=== PATIENT | male | born 1955 | race African-American/Black ===

== ENCOUNTER 2018-09-09 01:30 | Outpatient (RCR) | payer MEDICARE, SELFPAY ==
[2018-09-02] MEDS: IRON SUCROSE COMPLEX 200 MG in Normal Saline 100 ML 110 MG IVPB (09:55)
[2018-09-02 10:09] LABS: Absolute Basophil Count 0.04 k/cumm (0.0-0.2); Absolute Eosinophil Count 0.35 k/cumm (0.0-0.7); Absolute Lymphocyte Count 2.76 k/cumm (1.2-3.4); Absolute Monocyte Count 0.72 k/cumm (0.11-0.7); Absolute Neutrophil Count 3.12 k/cumm (1.2-6.7); Basophils % 0.6; HCT 35.7 % (40.0-50.0); HGB 11.5 g/dL (13.5-17.5); Lymphocytes % 39.5; Mean Corp. HGB Concentration 32.2 g/dL (32.0-36.0); Mean Corpuscular Hemoglobin 22.9 pg (27.0-33.0); Mean Platelet Volume 9.6 fL (8.0-11.0); Monocytes % 10.3; Neutrophils % 44.6; Platelet Count 269 x1000/uL (130-400); RBC 5.03 m/cumm (4.50-6.00); White Blood Cell Count 6.99 k/cumm (4.4-10.8)
[2018-09-02] MEDS: Normal Saline Flush 10 ML SYR IVP (10:15)
[2018-09-02 10:16] LABS: Anion Gap 7.5 mmol/L (3-11); BUN 12 mg/dL (7-18); CO2 26.5 mmol/L (21.0-32.0); CREATININE 0.89 mg/dL (0.70-1.30); Calcium 8.4 mg/dL (8.5-10.1); Chloride 104 mmol/L (98-107); Glucose 93 mg/dL (70-100); Potassium 3.9 mmol/L (3.5-5.1); Sodium 138 mmol/L (136-145)
[2018-09-02 10:30] LABS: Anisocytosis 2+; Diff Comment RBC Morph Reviewed; Hypochromasia 3+; Microcytosis 3+
[2018-09-02 10:31] LABS: Poikilocytes 2+; Polychromasia Present
[2018-09-02 10:32] LABS: Iron 43 ug/dL (50-175); Total Iron Binding Capacity 353 ug/dL (250-450); Transferrin Sat 12 % (20-55)
== END 2018-10-01 23:59 | disposition home or self-care (01) ==
LOC: INF 01:30
PROVIDERS: Student in an Organized Health Care Education/Training Program; Visit Provider Family Medicine
DX: D50.9 Iron deficiency anemia, unspecified (principal)
CPT/HCPCS: 80048; 86850; 86900; 86901; 96365; 83540; 83550; 85025; J1756

== ENCOUNTER 2018-09-13 19:20 | Emergency (ER) | payer MEDICARE, SELFPAY ==
[2018-09-13] VITALS (19 sets, daily range): BP systolic 148–187; BP diastolic 78–98; PULSE 70–89; RESP 15–25; TEMP 37.4; O2SAT 95–100
--- NOTE | 2018-09-13 19:25 | DI.RAD_ITS ---
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 No evidence of acute fracture or dislocation. LEFT SHOULDER: Five views were obtained. There is a suture anchor in the humeral head. A lucent area with sclerotic rim is noted in the proximal humeral metaphysis consistent with benign disease. There are moderate degenerative changes of the glenohumeral and acromioclavicular joints. There is no evidence of acute fracture or dislocation. LEFT ELBOW: Four views were obtained. No true lateral view was obtained and the fat pads are difficult to evaluate. There is a suspicion of a nondisplaced fracture of the medial aspect of the proximal ulna, please correlate clinically and additional films or CT could be obtained if clinically indicated to confirm a fracture at this site and delineate the fracture anatomy.
--- NOTE | 2018-09-13 19:25 | DI.CT_ITS ---
SYMPTOMS/DIAGNOSIS: PAIN S/P FALL CERVICAL SPINE CT: CT examination of the cervical spine was performed utilizing multislice acquisition and multiplanar reconstruction. There are severe degenerative changes of the cervical spine with marked facet hypertrophy and endplate hypertrophy at multiple levels. There is no evidence of acute fracture or dislocation. Images obtained through the lung apices are unremarkable. Tracheolaryngeal structures appear intact. No cervical mass or adenopathy seen. CONCLUSION: Severe degenerative changes of the cervical spine; no evidence of acute fracture. CRANIAL CT: Noncontrast cranial CT was performed. There is mild generalized cerebral atrophy. There is no evidence of acute intracranial hemorrhage, mass effect or midline shift. Presumed left frontal scalp hematoma is noted. No underlying calvarial fracture identified. Visualized paranasal sinuses are clear. The orbital and temporal bone structures appear intact as visualized, although motion obscures anatomic detail. CONCLUSION: No evidence of acute intracranial injury.
--- NOTE | 2018-09-13 19:30 | W.ED.GENAD ---
Discharge Plan Disposition Patient Disposition: HOME Condition: Stable Discharge Details Chief Complaint: Trauma Clinical Impression: Blunt head trauma, Cervical strain, Contusion of right shoulder, Contusion of left shoulder, Closed fracture of left elbow Reason For Visit: [facility] ED Provider: Modesto Olguin [place] Meds and New Rx's Prescriptions: New oxycodone 5 mg tablet 5 mg PO Q4H PRN (Reason: pain) Qty: 10 RF: 0 Continue lisinopril 20 mg Tablet 20 mg PO DAILY RF: 0 calcium carbonate [Calcium 500] 500 mg calcium (1,250 mg) Tablet 500 mg PO DAILY RF: 0 methadone 5 mg Tablet 50 mg PO DAILY RF: 0 atorvastatin 40 mg Tablet 40 mg PO DAILY RF: 0 sildenafil [Viagra] 50 mg Tablet 25 mg PO DAILY PRNRF: 0 famotidine 40 mg Tablet 40 mg PO BID RF: 0 methocarbamol 750 mg Tablet 750 mg PO QID PRNRF: 0 ferrous sulfate 325 mg (65 mg iron) Tablet 325 mg PO DAILY RF: 0 gabapentin 300 mg Capsule 300 mg PO BID RF: 0 fluticasone [Flovent HFA] 220 mcg/actuation Hfa Aerosol Inhaler 1 puff INHALATION BID RF: 0 albuterol sulfate [Ventolin HFA] 90 mcg/actuation Hfa Aerosol Inhaler 2 dose Inhalation Q4H PRN PRNRF: 0 lisinopril 40 mg Tablet 40 mg PO DAILY RF: 0 fluticasone [Flonase Allergy Relief] 50 mcg/actuation [place],Suspension 1 spray Intranasal DAILY RF: 0 finasteride 5 mg Tablet 5 mg PO DAILY RF: 0 bupropion HCl 300 mg Tablet Extended Release 24 Hr 300 mg PO DAILY RF: 0 ipratropium bromide 17 mcg/actuation Hfa Aerosol Inhaler 2 dose Inhalation Q6H PRN PRNRF: 0 miconazole-skin [Miconazole-3 prefil,cream,wipe] 4 % (200 mg)- 2 % (9 gram) Kit 1 dose Topical DAILY RF: 0 Discharge Instructions Instructions: Elbow Fracture in Adults (ED) Additional Instructions: take 1000mg tylenol and 600mg ibuprofen every 6 hours for pain as needed. If you need additional pain relief take 1 oxycodone, do not drive or drink alcohol if you take this follow up with your primary care provider regarding your lung nodules if you have new symptoms such as chest pain or abdominal pain or weakness/numbness return to the emergency department Discharge Data Discharge Physician: Modesto Olguin Medical Decision Making 63 yo male with hx of HTN comes in with cc of left shoulder pain. He states he missed a step and fell down a flight of stairs. He denies any preceding symptoms such as weakness, dz/lightheadedness, chest pain, sob, abd pain and states he purely missed a step. He did not lose consciousness. He has left shoulder pain and also right shoulder pain and left elbow pain. Given no chest pain or sob or abdominal pain and full rom of the LE without pain do not feel imaging of these entiteis indicated. Given distracting injuries will image the c spine as well as bilateral shoulders and left elbow pt remains stable. His xrays of his left elbow and shoulders show sclerotis lesions and pulmonary nodules, no fracture of the shoulders, but does have small fracture of the left ulna, placed in a posterior arm splint and sling and he is going to f/u with his ortho at [facility] and advised he f/u with his pcp for the bone lesions and pulmonary nodules. His CT head showed no bleeding or fractures, does have opacificiation of inferior left masoid air cells which radiology states can be seen in trauma or mastoiditis, pt has no ear ache or pain in this area or swelling/redness/warmth to suggest mastoiditis at this time. His CT c spine showed abnormalities in c6 vertebral body which can't exclude fx and other findings of possible traumatic injury. I recommended transfer to [facility] [place] for trauma consult but the pt declined this as he has no pain on exam even on rom. He has no midline pain either. Despite this I advised this was against my advice and he still would like to go home. He has capacity to make his own decisions and understands risks of missing c spine fx including disability and and is willing to take these risks. He will return if he has worsening symptoms or if he changes his mind Differential Diagnosis tbi, fx, dislocation contusion HPI General Mode of arrival: EMS. Date/Time Provider Initiated Documentation: 09/13/18 19:25. Limitations to Documentation: no limitations. Information obtained by: patient. History of Present Illness 63 year old M presents to the emergency department with the chief complaint of left shoulder pain, described as moderate, with intensity rated at 5. Quality is described as aching, and is localized to the upper extremity. Patient reports no radiation. Patient started experiencing this hour(s) (1) and it has been constant. Rest improves symptom(s), Movement worsens symptoms . Patient notes other (left elbow pain, right shoulder pain). Patient did receive the following treatments prior to arrival, none Related Data Home Medications Medication Instructions Recorded Confirmed albuterol sulfate [Ventolin HFA] 2 dose INHALATION Q4H PRN PRN 09/13/18 09/13/18 atorvastatin 40 mg PO DAILY 09/13/18 09/13/18 bupropion HCl 300 mg PO DAILY 09/13/18 09/13/18 calcium carbonate [Calcium 500] 500 mg PO DAILY 09/13/18 09/13/18 famotidine 40 mg PO BID 09/13/18 09/13/18 ferrous sulfate 325 mg PO DAILY 09/13/18 09/13/18 finasteride 5 mg PO DAILY 09/13/18 09/13/18 fluticasone [Flonase Allergy 1 spray INTRANASAL DAILY 09/13/18 09/13/18 Relief] fluticasone [Flovent HFA] 1 puff INHALATION BID 09/13/18 09/13/18 gabapentin 300 mg PO BID 09/13/18 09/13/18 ipratropium bromide 2 dose INHALATION Q6H PRN PRN 09/13/18 09/13/18 lisinopril 20 mg PO DAILY 09/13/18 09/13/18 lisinopril 40 mg PO DAILY 09/13/18 09/13/18 methadone 50 mg PO DAILY 09/13/18 09/13/18 methocarbamol 750 mg PO QID PRN 09/13/18 09/13/18 miconazole-skin 1 dose TOPICAL DAILY 09/13/18 09/13/18 [Miconazole-3 prefil,cream,wipe] oxycodone 5 mg PO Q4H PRN #10 tab 09/13/18 sildenafil [Viagra] 25 mg PO DAILY PRN 09/13/18 09/13/18 Previous Rx's Medication Instructions Recorded oxycodone 5 mg PO Q4H PRN #10 tab 09/13/18 Allergies Allergy/AdvReac Type Severity Reaction Status Date / Time Sulfa (Sulfonamide Allergy Unverified 09/13/18 19:23 Antibiotics) General Stated Complaint: Trauma KENYETTA: 2 Review of Systems Review of Systems All systems reviewed & are unremarkable except as noted in HPI and below Constitutional Denies chills, Denies fever(s) and Denies weakness Eyes Denies loss of vision ENT Denies change in voice Cardiovascular Denies chest pain and Denies dyspnea Respiratory Denies dyspnea Gastrointestinal Denies abdominal pain, Denies nausea and Denies vomiting Genitourinary Denies dysuria Integumentary/Breasts Denies rash Neurologic Denies loss of vision and Denies weakness Allergic/Immunologic Reports urticaria [facility], [facility] Social History Smoking/Tobacco Use Status: Current every day Exam Const General: no acute distress Orientation: alert HENMT Head: normal to inspection Ears: external ears normal General nose exam: external nose normal Mouth: moist mucous membranes Eyes General: appearance normal, both eyes and all related structures Neck Neck: normal visual inspection and other (no midline nenderness) Resp Effort & Inspection: normal respiratory effort and able to speak in complete sentences Cardio Rate: regular rate Skin General skin exam: no rashes or lesions noted Neuro General: alert and oriented x3 Extrem General: normal to inspection, normal capillary refill and other (pain to palpation to the left lateral shoulder, right lateral shoulder with limited rom of both and left olecranon pain with limited rom, no hand or elbow pain and full rom of both lower extremities. ) Psych Mental Status: mental status grossly normal Course Vital Signs Temperature 37.4 C 09/13/18 19:23 Pulse 89 09/13/18 19:23 Respiratory Rate 16 09/13/18 19:23 Blood Pressure 187/98 H 09/13/18 19:23 Pulse Oximetry 97 09/13/18 19:23 Temperature 37.4 C 09/13/18 19:23 Temperature Source Temporal Artery Scan 09/13/18 19:23 Pulse 89 09/13/18 19:23 Respiratory Rate 16 09/13/18 19:23 Respiratory Effort 09/13/18 19:23 Blood Pressure 187/98 H 09/13/18 19:23 Pulse Oximetry 97 09/13/18 19:23 Oxygen Delivery Method Room Air 09/13/18 19:23 Oxygen Flow Rate 0 09/13/18 19:23 Pain Level 10 09/13/18 19:23 Comment 09/13/18 19:23
[2018-09-13] MEDS: Ibuprofen 600 MG TAB PO (19:33)
[2018-09-13] MEDS: Acetaminophen 500 MG TAB 1000 MG PO (19:34)
--- NOTE | 2018-09-13 19:35 | ED.GENADUL_ITS ---
Discharge Plan Disposition Patient Disposition: HOME Condition: Stable Discharge Details Chief Complaint: Trauma Clinical Impression: Blunt head trauma, Cervical strain, Contusion of right shoulder, Contusion of left shoulder, Closed fracture of left elbow Reason For Visit: [facility] ED Provider: Modesto Olguin [place] Meds and New Rx's Prescriptions: New oxycodone 5 mg tablet 5 mg PO Q4H PRN (Reason: pain) Qty: 10 RF: 0 Continue lisinopril 20 mg Tablet 20 mg PO DAILY RF: 0 calcium carbonate [Calcium 500] 500 mg calcium (1,250 mg) Tablet 500 mg PO DAILY RF: 0 methadone 5 mg Tablet 50 mg PO DAILY RF: 0 atorvastatin 40 mg Tablet 40 mg PO DAILY RF: 0 sildenafil [Viagra] 50 mg Tablet 25 mg PO DAILY PRNRF: 0 famotidine 40 mg Tablet 40 mg PO BID RF: 0 methocarbamol 750 mg Tablet 750 mg PO QID PRNRF: 0 ferrous sulfate 325 mg (65 mg iron) Tablet 325 mg PO DAILY RF: 0 gabapentin 300 mg Capsule 300 mg PO BID RF: 0 fluticasone [Flovent HFA] 220 mcg/actuation Hfa Aerosol Inhaler 1 puff INHALATION BID RF: 0 albuterol sulfate [Ventolin HFA] 90 mcg/actuation Hfa Aerosol Inhaler 2 dose Inhalation Q4H PRN PRNRF: 0 lisinopril 40 mg Tablet 40 mg PO DAILY RF: 0 fluticasone [Flonase Allergy Relief] 50 mcg/actuation [place],Suspension 1 spray Intranasal DAILY RF: 0 finasteride 5 mg Tablet 5 mg PO DAILY RF: 0 bupropion HCl 300 mg Tablet Extended Release 24 Hr 300 mg PO DAILY RF: 0 ipratropium bromide 17 mcg/actuation Hfa Aerosol Inhaler 2 dose Inhalation Q6H PRN PRNRF: 0 miconazole-skin [Miconazole-3 prefil,cream,wipe] 4 % (200 mg)- 2 % (9 gram) Kit 1 dose Topical DAILY RF: 0 Discharge Instructions Instructions: Elbow Fracture in Adults (ED) Additional Instructions: take 1000mg tylenol and 600mg ibuprofen every 6 hours for pain as needed. If you need additional pain relief take 1 oxycodone, do not drive or drink alcohol if you take this follow up with your primary care provider regarding your lung nodules if you have new symptoms such as chest pain or abdominal pain or weakness/ numbness return to the emergency department Discharge Data Discharge Physician: Modesto Olguin Medical Decision Making 63 yo male with hx of HTN comes in with cc of left shoulder pain. He states he missed a step and fell down a flight of stairs. He denies any preceding symptoms such as weakness, dz/lightheadedness, chest pain, sob, abd pain and states he purely missed a step. He did not lose consciousness. He has left shoulder pain and also right shoulder pain and left elbow pain. Given no chest pain or sob or abdominal pain and full rom of the LE without pain do not feel imaging of these entiteis indicated. Given distracting injuries will image the c spine as well as bilateral shoulders and left elbow pt remains stable. His xrays of his left elbow and shoulders show sclerotis lesions and pulmonary nodules, no fracture of the shoulders, but does have small fracture of the left ulna, placed in a posterior arm splint and sling and he is going to f/u with his ortho at [facility] and advised he f/u with his pcp for the bone lesions and pulmonary nodules. His CT head showed no bleeding or fractures, does have opacificiation of inferior left masoid air cells which radiology states can be seen in trauma or mastoiditis, pt has no ear ache or pain in this area or swelling/redness/warmth to suggest mastoiditis at this time. His CT c spine showed abnormalities in c6 vertebral body which can't exclude fx and other findings of possible traumatic injury. I recommended [place] [facility] [place] but the pt declined this as he has no pain on exam even on rom. He has no midline pain either. Despite this I advised this was against my advice and he still would like to go home. He has capacity to make his own decisions and understands risks of missing c spine fx including disability and and is willing to take these risks. He will return if he has worsening symptoms or if he changes his mind Differential Diagnosis tbi, fx, dislocation contusion HPI General Mode of arrival: EMS . Date/Time Provider Initiated Documentation: 09/13/18 19:25 . Limitations to Documentation: no limitations . Information obtained by: patient . History of Present Illness 63 year old M presents to the emergency department with the chief complaint of left shoulder pain, described as moderate, with intensity rated at 5. Quality is described as aching, and is localized to the upper extremity. Patient reports no radiation. Patient started experiencing this hour(s) (1) and it has been constant. Rest improves symptom(s), Movement worsens symptoms . Patient notes other (left elbow pain, right shoulder pain). Patient did receive the following treatments prior to arrival, none Related Data Home Medications Medication Instructions Recorded Confirmed albuterol sulfate [Ventolin HFA] 2 dose INHALATION Q4H PRN PRN 09/13/18 09/13/18 atorvastatin 40 mg PO DAILY 09/13/18 09/13/18 bupropion HCl 300 mg PO DAILY 09/13/18 09/13/18 calcium carbonate [Calcium 500] 500 mg PO DAILY 09/13/18 09/13/18 famotidine 40 mg PO BID 09/13/18 09/13/18 ferrous sulfate 325 mg PO DAILY 09/13/18 09/13/18 finasteride 5 mg PO DAILY 09/13/18 09/13/18 fluticasone [Flonase Allergy 1 spray INTRANASAL DAILY 09/13/18 09/13/18 Relief] fluticasone [Flovent HFA] 1 puff INHALATION BID 09/13/18 09/13/18 gabapentin 300 mg PO BID 09/13/18 09/13/18 ipratropium bromide 2 dose INHALATION Q6H PRN PRN 09/13/18 09/13/18 lisinopril 20 mg PO DAILY 09/13/18 09/13/18 lisinopril 40 mg PO DAILY 09/13/18 09/13/18 methadone 50 mg PO DAILY 09/13/18 09/13/18 methocarbamol 750 mg PO QID PRN 09/13/18 09/13/18 miconazole-skin 1 dose TOPICAL DAILY 09/13/18 09/13/18 [Miconazole-3 prefil,cream,wipe] oxycodone 5 mg PO Q4H PRN #10 tab 09/13/18 sildenafil [Viagra] 25 mg PO DAILY PRN 09/13/18 09/13/18 Previous Rx's Medication Instructions Recorded oxycodone 5 mg PO Q4H PRN #10 tab 09/13/18 Allergies Allergy/AdvReac Type Severity Reaction Status Date / Time Sulfa (Sulfonamide Allergy Unverified 09/13/18 19:23 Antibiotics) General Stated Complaint: Trauma KENYETTA: 2 Review of Systems Review of Systems All systems reviewed & are unremarkable except as noted in HPI and below Constitutional Denies chills, Denies fever(s) and Denies weakness Eyes Denies loss of vision ENT Denies change in voice Cardiovascular Denies chest pain and Denies dyspnea Respiratory Denies dyspnea Gastrointestinal Denies abdominal pain, Denies nausea and Denies vomiting Genitourinary Denies dysuria Integumentary/Breasts Denies rash Neurologic Denies loss of vision and Denies weakness Allergic/Immunologic Reports urticaria [facility] Social History Smoking/Tobacco Use Status: Current every day Exam Const General: no acute distress Orientation: alert HENMT Head: normal to inspection Ears: external ears normal General nose exam: external nose normal Mouth: moist mucous membranes Eyes General: appearance normal, both eyes and all related structures Neck Neck: normal visual inspection and other (no midline nenderness) Resp Effort & Inspection: normal respiratory effort and able to speak in complete sentences Cardio Rate: regular rate Skin General skin exam: no rashes or lesions noted Neuro General: alert and oriented x3 Extrem General: normal to inspection, normal capillary refill and other (pain to palpation to the left lateral shoulder, right lateral shoulder with limited rom of both and left olecranon pain with limited rom, no hand or elbow pain and full rom of both lower extremities. ) Psych Mental Status: mental status grossly normal Course Vital Signs Temperature 37.4 C 09/13/18 19:23 Pulse 89 09/13/18 19:23 Respiratory Rate 16 09/13/18 19:23 Blood Pressure 187/98 H 09/13/18 19:23 Pulse Oximetry 97 09/13/18 19:23 Temperature 37.4 C 09/13/18 19:23 Temperature Source Temporal Artery Scan 09/13/18 19:23 Pulse 89 09/13/18 19:23 Respiratory Rate 16 09/13/18 19:23 Respiratory Effort 09/13/18 19:23 Blood Pressure 187/98 H 09/13/18 19:23 Pulse Oximetry 97 09/13/18 19:23 Oxygen Delivery Method Room Air 09/13/18 19:23 Oxygen Flow Rate 0 09/13/18 19:23 Pain Level 10 09/13/18 19:23 Comment 09/13/18 19:23
--- NOTE | 2018-09-13 21:03 | DI.VRAD_ITS ---
EXAM: CT Head Without Intravenous Contrast EXAM DATE/TIME: 09/13/2018 7:27 PM CLINICAL HISTORY: 63 years old, male; Injury or trauma; Fall; Initial encounter; Blunt trauma (contusions or hematomas); Patient HX: Pain S/P fall TECHNIQUE: Axial computed tomography images of the head/brain without intravenous contrast. Coronal and sagittal reformatted images were created and reviewed. COMPARISON: No relevant prior studies available. FINDINGS: Limitations: This is a compromised examination secondary to motion. Brain: No acute intracranial hemorrhage identified. There is brain atrophy. No midline shift. There are vascular calcifications. Ventricles: Normal. No ventriculomegaly. Bones/joints: No definite fracture appreciated. Sinuses: No fluid levels. There is mucosal thickening in the right maxillary sinus which can be seen with chronic sinusitis. Mastoid air cells: There is some opacification in the inferior left mastoid air cells. This can be seen with mastoiditis or in the setting of trauma. Soft tissues: There is abnormal soft tissue density along the anterolateral aspect of the left skull on series 6 image 37. This can be seen secondary to trauma or infection.. IMPRESSION: 1. Compromised examination secondary to motion. No acute intracranial hemorrhage or definite fracture appreciated. 2. Abnormal soft tissue density along the anterolateral aspect of the left skull. This can be seen secondary to trauma or infection. 3. Some opacification in the inferior left mastoid air cells. This can be seen with mastoiditis or in the setting of trauma. Other findings as above. EXAM: CT Cervical Spine Without Intravenous Contrast EXAM DATE/TIME: 09/13/2018 7:27 PM CLINICAL HISTORY: 63 years old, male; Injury or trauma; Fall; Initial encounter; Blunt trauma (contusions or hematomas); Patient HX: Pain S/P fall TECHNIQUE: Axial computed tomography images of the cervical spine without intravenous contrast. Coronal and sagittal reformatted images were created and reviewed. COMPARISON: No relevant prior studies available. FINDINGS: Vertebrae: There is a linear lucency through the anterior superior endplate of vertebral body C6 (series 18 image 36). Linear lucencies are also noted through the right uncinate process of vertebral body C6 best appreciated on series 17 image 22; series 12 image 228; series 12 image 226 with some associated gas locule seen which may be related to vacuum phenomenon. Acute fractures in these regions are possible. There is mild asymmetry of the lateral masses of C1 with respect to C2. This is usually due to patient positioning but should be correlated with any concern for ligamentous injury. There is straightening of the normal cervical lordosis which may be muscular. There is some flattening of the anterior superior endplates of vertebral bodies C3, C4, and C5 which has a chronic appearance. Anterior and posterior osteophytosis is seen. No listhesis is identified. Discs/Spinal canal/Neural foramina: There are disc bulges at multiple levels. There is disc space narrowing at C5-6 and C6-7. If the patient is symptomatic, MRI would be beneficial. Soft tissues: There are vascular calcifications.. Lungs: Normal. IMPRESSION: 1. Abnormalities as described within vertebral body C6 for which acute fractures are not excluded. MRI could be considered for further evaluation. 2. Some flattening of the anterior superior endplates of vertebral bodies C3, C4, and C5. These have a chronic appearance however correlation with tenderness suggested. 3. Mild asymmetry to the lateral masses of C1 with respect to C2. This is usually secondary to patient positioning but should be correlated with any concern for ligamentous injury. Straightening of the normal cervical lordosis which may be muscular in nature. 4. Disc bulges at multiple levels. If the patient is symptomatic, MRI would be beneficial. Other findings as above. Dictated and Authenticated by: Taya Reyes MD. Ordering:BRIAN RING MD
--- NOTE | 2018-09-13 21:09 | DI.VRAD_ITS ---
EXAM: XR Left Elbow Complete, 3 or more Views EXAM DATE/TIME: 09/13/2018 7:27 PM CLINICAL HISTORY: 63 years old, male; Injury or trauma; Fall; Initial encounter; Blunt trauma (contusions or hematomas; Elbow; Left; Patient HX: S/P fall TECHNIQUE: XR Left elbow 3 or more views. COMPARISON: No relevant prior studies available. FINDINGS: Bones/joints: There is a linear lucency and fragmentation in the region of the sublime tubercle of the ulna, worrisome for acute fracture. Correlation with area of concern suggested. Soft tissues: Normal. IMPRESSION: 1. There is a linear lucency and fragmentation in the region of the sublime tubercle of the ulna, worrisome for acute fracture. Correlation with area of concern suggested. Dictated and Authenticated by: Taya Reyes MD. Ordering:BRIAN RING MD
--- NOTE | 2018-09-13 21:17 | DI.VRAD_ITS ---
EXAM: XR Left Shoulder Complete, 2 or More Views EXAM DATE/TIME: 09/13/2018 8:13 PM CLINICAL HISTORY: 63 years old, male; Injury or trauma; Fall; Initial encounter; Blunt trauma (contusions or hematomas; Shoulder; Left; Patient HX: S/P fall TECHNIQUE: XR Left shoulder complete 2 or more views. COMPARISON: No relevant prior studies available. FINDINGS: Bones/joints: No displaced fracture identified. There is flattening and sclerosis to the lateral aspect of the humeral head which could be secondary to an old Hill-Sachs deformity. There are postsurgical changes overlying the humeral head. There is also a high riding appearance the humeral head. There is a lobulated rim sclerotic lucency in the proximal humeral shaft, 2.1 cm, image 1003. This has a benign appearance but should be correlated with any history of pain in this region. Comparison with any prior imaging studies, if available, would be beneficial to document long-term stability of this finding. There are degenerative changes to the left a.c. and glenohumeral joints. Soft tissues: There is a 5 mm rounded density overlying the medial aspect of the left lung which could represent a vessel on end or pulmonary nodule, image 1003. IMPRESSION: 1. No displaced fracture or dislocation identified.There is flattening and sclerosis to the lateral aspect of the humeral head which could be secondary to an old Hill-Sachs deformity. However, correlation with area of impact recommended. 2. High riding appearance to the humeral head which can be seen with rotator cuff abnormalities. 3. 5 mm rounded density overlying the medial aspect of the left lung. This could represent a vessel on end or pulmonary nodule. Comparison with prior imaging studies to document long-term stability of this finding would be beneficial. 4. Lobulated rim sclerotic lucency in the proximal humeral shaft as described. Other findings as above. Dictated and Authenticated by: Taya Reyes MD. Ordering:BRIAN RING MD
--- NOTE | 2018-09-13 21:21 | DI.VRAD_ITS ---
EXAM: XR Right Shoulder Complete, 2 or More Views EXAM DATE/TIME: 09/13/2018 8:14 PM CLINICAL HISTORY: 63 years old, male; Injury or trauma; Fall; Initial encounter; Blunt trauma (contusions or hematomas; Shoulder; Right; Patient HX: S/P fall TECHNIQUE: XR Right shoulder complete 2 or more views. COMPARISON: No relevant prior studies available. 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 A 5 mm rounded ossific density is noted in the medial soft tissues which could represent the sequela of old or trauma. There are degenerative changes to the right a.c. joint. Soft tissues: A vessel on end versus pulmonary nodule overlies the right lung, 4 mm, image 1001. IMPRESSION: 1. Postsurgical changes to the right humerus without evidence of acute fracture or dislocation. 2. Vessel on end versus pulmonary nodule overlying the right lung. Comparison with older imaging studies, if available, would be beneficial to document long-term stability of this finding. Other findings as above. Dictated and Authenticated by: Taya Reyes MD. Ordering:BRIAN RING MD
[2018-09-13] MEDS: oxyCODONE 5 MG TAB 10 MG PO (21:47)
== END 2018-09-13 21:33 | disposition home or self-care (01) ==
LOC: ER 21:53
PROVIDERS: Emergency Provider Emergency Medicine
DX: S52.092A Other fracture of upper end of left ulna, initial encounter for closed fracture (principal); S40.011A Contusion of right shoulder, initial encounter; S40.012A Contusion of left shoulder, initial encounter; S09.90XA Unspecified injury of head, initial encounter; W10.8XXA Fall (on) (from) other stairs and steps, initial encounter
CPT/HCPCS: 24670; 99284; 70450; 72125; 73030; 73080; L3650

== ENCOUNTER 2018-09-15 07:02 | Emergency (ER) | payer MEDICARE, SELFPAY ==
[2018-09-15 07:09] VITALS: BP 172/103; PULSE 85; RESP 16; TEMP 37; O2SAT 97
--- NOTE | 2018-09-15 07:32 | DI.CT_ITS ---
SYMPTOMS/DIAGNOSIS: PAIN AND SWELLING S/P FRACTURE LEFT ELBOW CT: CT examination of the elbow was performed with multislice acquisition and multiplanar reconstruction. No gross elbow joint effusion seen. A linear lucency seen at the medial aspect of the proximal ulnar articular surface on plain films is again noted on CT and appears to comprise an approximately 2 mm in diameter bony fragment, possibly a fractured osteophyte versus a tiny fracture of the lip of the articular surface of the ulna at this site. No additional fracture identified. No significant displacement.
--- NOTE | 2018-09-15 07:38 | ED.GENADUL_ITS ---
Discharge Plan Disposition Patient Disposition: HOME Condition: Improving Discharge Details Chief Complaint: Orthopedic Clinical Impression: Contusion of elbow, left Primary Care Provider: MIRANDA,LOCAL ED Provider: Ryan Woodard Home Meds and New Rx's Prescriptions: Continue calcium carbonate [Calcium 500] 500 mg calcium (1,250 mg) Tablet 500 mg PO DAILY RF: 0 methadone 5 mg Tablet 50 mg PO DAILY RF: 0 sildenafil [Viagra] 50 mg Tablet 25 mg PO DAILY PRNRF: 0 famotidine 40 mg Tablet 40 mg PO BID RF: 0 methocarbamol 750 mg Tablet 750 mg PO QID PRNRF: 0 ferrous sulfate 325 mg (65 mg iron) Tablet 325 mg PO DAILY RF: 0 gabapentin 300 mg Capsule 300 mg PO BID RF: 0 fluticasone [Flovent HFA] 220 mcg/actuation Hfa Aerosol Inhaler 1 puff INHALATION BID RF: 0 albuterol sulfate [Ventolin HFA] 90 mcg/actuation Hfa Aerosol Inhaler 2 dose Inhalation Q4H PRN PRNRF: 0 lisinopril 40 mg Tablet 40 mg PO DAILY RF: 0 fluticasone [Flonase Allergy Relief] 50 mcg/actuation [place],Suspension 1 spray Intranasal DAILY RF: 0 finasteride 5 mg Tablet 5 mg PO DAILY RF: 0 bupropion HCl 300 mg Tablet Extended Release 24 Hr 300 mg PO DAILY RF: 0 ipratropium bromide 17 mcg/actuation Hfa Aerosol Inhaler 2 dose Inhalation Q6H PRN PRNRF: 0 miconazole-skin [Miconazole-3 prefil,cream,wipe] 4 % (200 mg)- 2 % (9 gram) Kit 1 dose Topical DAILY RF: 0 oxycodone 5 mg tablet 5 mg PO Q4H PRN (Reason: pain) Qty: 10 RF: 0 Discharge Instructions Instructions: Contusion in Adults (ED) Additional Instructions: May wear sling as needed for comfort 5-7 days time. Please follow-up with physical therapy as prescribed per Ice to reduce pain and swelling. Return if you develop recurrent swelling, numbness, weakness, tingling, or any other acute concerns. Bacitracin to the area of skin erosion twice daily for 5 days Please follow-up with regular doctor for recheck in the next 1-2 weeks time. Medical Decision Making 63-year-old male presents the emergency department following a fall and traumatic left elbow fracture on Saturday. He presents for left forearm and hand swelling. He has chronic and noted hypertension, otherwise no fever. His exam reveals normal motor and sensory function, with good radial pulse. He does have edema and small pressure ulceration of the left lateral elbow. The patient's rings were removed from his fingers. No significant increase in pain as he is on chronic methadone treatment. Patient referred for CT scan of the upper extremity. Please see formal report. There is no significant acute fracture or significant effusion. Patient did also have some persistent left humerus pain for which he was referred for plain radiograph which does not reveal acute fracture. Patient swelling improved following removal of the splint. Does have a small ulceration which we will treat with topical antibiotic. He may wear a sling for comfort for up to 1 week's time. We will refer him to physical therapy. He stable for discharge to home at this time and understands return precautions. HPI General Mode of arrival: ambulatory . Date/Time Provider Initiated Documentation: 09/15/18 07:15 . Limitations to Documentation: no limitations . Information obtained by: patient . History of Present Illness 63 year old M presents to the emergency department with the chief complaint of Left arm sweling, described as moderate, Quality is described as dull and constant, and is localized to the left and upper extremity. Patient reports no radiation. Patient started experiencing this hour(s) and it has been constant. No relieving factors improve symptom(s), No exacerbating factors reported . Patient notes no other symptoms.. HPI Narrative: 63-year-old male who had a traumatic left elbow fracture on Saturday. He was placed in an Ortho-Glass and referred to orthopedics. He reports 1 day of left hand swelling with question of slight tingling. He has not had any lack of sensation or motor weakness. States that pain has been controlled. He has otherwise been well. He did not injure himself in any way and today he denies headache/neck/back/chest/abdomen pain Related Data Home Medications Medication Instructions Recorded Confirmed albuterol sulfate [Ventolin HFA] 2 dose INHALATION Q4H PRN PRN 09/13/18 09/15/18 bupropion HCl 300 mg PO DAILY 09/13/18 09/15/18 calcium carbonate [Calcium 500] 500 mg PO DAILY 09/13/18 09/15/18 famotidine 40 mg PO BID 09/13/18 09/15/18 ferrous sulfate 325 mg PO DAILY 09/13/18 09/15/18 finasteride 5 mg PO DAILY 09/13/18 09/15/18 fluticasone [Flonase Allergy 1 spray INTRANASAL DAILY 09/13/18 09/15/18 Relief] fluticasone [Flovent HFA] 1 puff INHALATION BID 09/13/18 09/15/18 gabapentin 300 mg PO BID 09/13/18 09/15/18 ipratropium bromide 2 dose INHALATION Q6H PRN PRN 09/13/18 09/15/18 lisinopril 40 mg PO DAILY 09/13/18 09/15/18 methadone 50 mg PO DAILY 09/13/18 09/15/18 methocarbamol 750 mg PO QID PRN 09/13/18 09/15/18 miconazole-skin 1 dose TOPICAL DAILY 09/13/18 09/15/18 [Miconazole-3 prefil,cream,wipe] oxycodone 5 mg PO Q4H PRN #10 tab 09/13/18 09/15/18 sildenafil [Viagra] 25 mg PO DAILY PRN 09/13/18 09/15/18 Previous Rx's Medication Instructions Recorded oxycodone 5 mg PO Q4H PRN #10 tab 09/13/18 Allergies Allergy/AdvReac Type Severity Reaction Status Date / Time Sulfa (Sulfonamide Allergy Unverified 09/15/18 07:13 Antibiotics) General Stated Complaint: Orthopedic KENYETTA: 4 Review of Systems Review of Systems 8 systems reviewed and otherwise - PFSH Social History Smoking/Tobacco Use Status: Current every day Exam Narrative Exam Narrative: GEN: awake, alert, oriented 3. Pleasant, well groomed, interactive. HEAD: Normocephalic, atraumatic ENT: Mucous membranes moist, oropharynx unremarkable, External ear exam unremarkable EYES: PERRL, EOMI NECK: Full ROM, no NAZARIO, no menigismus CHEST/RESP: Nontender CARDIOVASCULAR: 1+ Rad pulse bilateral ABDOMEN: Soft, nontender, no mass. +Bowel sounds EXT: Full ROM, the left hand and forearm are edematous. Patient has palpable radial pulses bilaterally. Motor is intact as is sensation. There is a small shallow ulceration left lateral elbow measuring approximately centimeter. Patient is able to make okay sign, cross long finger over index, touch thumb to fifth digit. Motor is rated 5 out of 5. Neuro: Grossly normal neurologic exam, conversant, interactive. Psych: Speech fluent, thoughts congruent, affect normal Course Vital Signs Temperature 37 C 09/15/18 07:09 Pulse 85 09/15/18 07:09 Respiratory Rate 16 09/15/18 07:09 Blood Pressure 172/103 H 09/15/18 07:09 Pulse Oximetry 97 09/15/18 07:09 Temperature 37 C 09/15/18 07:09 Temperature Source Skin 09/15/18 07:09 Pulse 85 09/15/18 07:09 Respiratory Rate 16 09/15/18 07:09 Respiratory Effort Non-Labored 09/15/18 07:09 Blood Pressure 172/103 H 09/15/18 07:09 Pulse Oximetry 97 09/15/18 07:09 Oxygen Delivery Method Room Air 09/15/18 07:09 Oxygen Flow Rate 0 09/15/18 07:09 Pain Level 10 09/15/18 07:09
--- NOTE | 2018-09-15 09:16 | DI.RAD_ITS ---
SYMPTOM/DIAGNOSIS: HUMERAL HEAD PAIN AFTER FALL LEFT HUMERUS: Three views were obtained. There is a suture anchor in place in the humeral head. Well circumscribed sclerotic bordered small lytic focus noted in proximal humeral shaft which is nonspecific but likely benign. No additional abnormality involving the humerus. Presumed fractured osteophyte of proximal ulna again noted as described on other examination.
--- NOTE | 2018-09-15 10:47 | NUR.NOTE ---
2 rings removed with lubricant from L ring finger. pt has the rings at discharge. put in plastic belongings container and then bagged. Nursing Note:
== END 2018-09-15 09:38 | disposition home or self-care (01) ==
PROVIDERS: Emergency Provider Emergency Medicine
DX: S50.02XA Contusion of left elbow, initial encounter (principal); L98.491 Non-pressure chronic ulcer of skin of other sites limited to breakdown of skin; W10.8XXA Fall (on) (from) other stairs and steps, initial encounter; I10 Essential (primary) hypertension
CPT/HCPCS: 99284; 73060; 73200

== ENCOUNTER 2019-03-02 13:24 | Emergency (ER) | payer MEDICARE, SELFPAY ==
[2019-03-02 13:34] VITALS: BP 141/80; PULSE 93; RESP 20; TEMP 36.7; O2SAT 96
--- NOTE | 2019-03-02 13:37 | DI.RAD_ITS ---
SYMPTOMS/DIAGNOSIS: COUGH PA AND LATERAL CHEST: The heart is not enlarged. There appears to be some prominence of the pulmonary interstitial markings, which may be chronic. No focal consolidation seen. The possibility of a diffuse acute process, however, could not be excluded. No pleural effusions seen. 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 CONCLUSION: Mild diffuse pulmonary interstitial prominence, acute versus chronic process. Previous examination of 2007 did not show this finding. Follow-up chest film suggested.
--- NOTE | 2019-03-02 13:43 | W.ED.GENAD ---
Discharge Plan Disposition Patient Disposition: HOME Condition: Stable Discharge Details Chief Complaint: SOB Clinical Impression: Cough, Asthma exacerbation Primary Care Provider: Pippa Madden ED Provider: Hellen Robbins Home Meds and New Rx's Prescriptions: New doxycycline hyclate 100 mg tablet 100 mg PO BID Qty: 27 RF: 0 prednisone 20 mg tablet 60 mg PO DAILY Qty: 12 RF: 0 Continued calcium carbonate [Calcium 500] 500 mg calcium (1,250 mg) Tablet 500 mg PO DAILY RF: 0 methadone 5 mg Tablet 50 mg PO DAILY RF: 0 sildenafil [Viagra] 50 mg Tablet 25 mg PO DAILY PRNRF: 0 famotidine 40 mg Tablet 40 mg PO BID RF: 0 methocarbamol 750 mg Tablet 750 mg PO QID PRNRF: 0 ferrous sulfate 325 mg (65 mg iron) Tablet 325 mg PO DAILY RF: 0 gabapentin 300 mg Capsule 300 mg PO BID RF: 0 Flovent HFA 220 mcg/actuation Hfa Aerosol Inhaler 1 puff INHALATION BID RF: 0 albuterol sulfate [Ventolin HFA] 90 mcg/actuation Hfa Aerosol Inhaler 2 dose Inhalation Q4H PRN PRNRF: 0 lisinopril 40 mg Tablet 40 mg PO DAILY RF: 0 fluticasone propionate [Flonase Allergy Relief] 50 mcg/actuation [place],Suspension 1 spray Intranasal DAILY RF: 0 finasteride 5 mg Tablet 5 mg PO DAILY RF: 0 bupropion HCl 300 mg Tablet Extended Release 24 Hr 300 mg PO DAILY RF: 0 ipratropium bromide 17 mcg/actuation Hfa Aerosol Inhaler 2 dose Inhalation Q6H PRN PRNRF: 0 miconazole-skin [Miconazole-3 prefil,cream,wipe] 4 % (200 mg)- 2 % (9 gram) Kit 1 dose Topical DAILY RF: 0 oxycodone 5 mg tablet 5 mg PO Q4H PRN (Reason: pain) Qty: 10 RF: 0 Discharge Instructions Instructions: Asthma (ED), Acute Cough (ED) Additional Instructions: Please return immediately to the emergency department he develop any new or worsening symptoms or if you become otherwise concerned. It is extremely important that you make an appointment to be seen in follow-up for this visit as soon as possible by her primary care doctor. Please take the prescribed doxycycline at a different time that you take your calcium and iron every day. Referrals: Pippa Madden [Primary Care Provider] - Discharge Data Discharge Date/Time-TO BE ENTERED AT DEPARTURE: 03/02/19 15:54 Medical Decision Making Jonathan Rob is a 64 y/o man with history of hypertension, current every day smoker who presented to the emergency department with 2 days of cough and shortness of breath. On exam patient is well and nontoxic appearing. He is in no respiratory distress. He has bilateral wheezes throughout on auscultation. Concern for pneumonia versus asthma exacerbation versus influenza. Plan for DuoNeb, prednisone, chest x-ray, flu swab. Will monitor and reassess. Patient reports shortness of breath completely resolved after 1 DuoNeb. On auscultation patient with wheeze improved but not entirely resolved. Plan for repeat DuoNeb. Patient with no further wheeze on auscultation after second DuoNeb. Flu swab negative. x-ray shows unclear acute versus chronic interstitial pulmonary process. Patient states that he has not been diagnosed with asthma, however he states that he does use his inhaler regularly for wheezing and has been an every day smoker for many years. Concern for asthma exacerbation and smoker with questionable pulmonary findings, plan for doxycycline in addition to prednisone. I had a lengthy discussion with the patient regarding return to emergency department precautions, home care, radiologic findings with [id number], and importance of outpatient follow-up with PCP. Patient was discharged home with clear plan for follow-up. Patient verbalized understanding the plan was amenable. All questions were answered. Medical Records Medical records reviewed: Yes I reviewed the patient's medical records. Imaging Data Radiologic Study: Attestation: I personally reviewed and interpreted this imaging study as follows: Radiologist's impression: PA AND LATERAL CHEST: The heart is not enlarged. There appears to be some prominence of the pulmonary interstitial markings, which may be chronic. No focal consolidation seen. The possibility of a diffuse acute process, however, could not be excluded. No pleural effusions seen. 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 CONCLUSION: Mild diffuse pulmonary interstitial prominence, acute versus chronic process. Previous examination of 2007 did not show this finding. Follow-up chest film suggested. Lab Data Lab results reviewed: Yes I reviewed the patient's lab results. HPI General Mode of arrival: ambulatory. Date/Time Provider Initiated Documentation: 03/02/19 13:43. Limitations to Documentation: no limitations. Information obtained by: patient, RN notes reviewed and old records reviewed. HPI Narrative: Jonathan Rob is a 64-year-old man with history of hypertension, current everyday smoker presenting to the emergency department with cough and shortness of breath. Patient reports that over the past 2 days he has had a nonproductive cough and mild shortness of breath that is worse with exertion. At rest he does not feel short of breath. He has had no chest pain or any other pain. No fever, no vomiting, no diarrhea, although he does report he had some sweating while at rest yesterday. This was not in the setting of shortness of breath or pain. Has been eating and drinking as usual. Patient denies history of asthma, although he says he does have an albuterol inhaler at home that he has been using over the past 2 days without much relief. No recent travel. No other recent illness. Related Data Home Medications Medication Instructions Recorded Confirmed Flovent HFA 1 puff INHALATION BID 09/13/18 03/02/19 albuterol sulfate [Ventolin HFA] 2 dose INHALATION Q4H PRN PRN 09/13/18 03/02/19 bupropion HCl 300 mg PO DAILY 09/13/18 03/02/19 calcium carbonate [Calcium 500] 500 mg PO DAILY 09/13/18 03/02/19 famotidine 40 mg PO BID 09/13/18 03/02/19 ferrous sulfate 325 mg PO DAILY 09/13/18 03/02/19 finasteride 5 mg PO DAILY 09/13/18 03/02/19 fluticasone propionate [Flonase 1 spray INTRANASAL DAILY 09/13/18 03/02/19 Allergy Relief] gabapentin 300 mg PO BID 09/13/18 03/02/19 ipratropium bromide 2 dose INHALATION Q6H PRN PRN 09/13/18 03/02/19 lisinopril 40 mg PO DAILY 09/13/18 03/02/19 methadone 50 mg PO DAILY 09/13/18 03/02/19 methocarbamol 750 mg PO QID PRN 09/13/18 03/02/19 miconazole-skin 1 dose TOPICAL DAILY 09/13/18 03/02/19 [Miconazole-3 prefil,cream,wipe] oxycodone 5 mg PO Q4H PRN #10 tab 09/13/18 03/02/19 sildenafil [Viagra] 25 mg PO DAILY PRN 09/13/18 03/02/19 doxycycline hyclate 100 mg PO BID #27 tab 03/02/19 prednisone 60 mg PO DAILY #12 tab 03/02/19 Previous Rx's Medication Instructions Recorded oxycodone 5 mg PO Q4H PRN #10 tab 09/13/18 doxycycline hyclate 100 mg PO BID #27 tab 03/02/19 prednisone 60 mg PO DAILY #12 tab 03/02/19 Allergies Allergy/AdvReac Type Severity Reaction Status Date / Time Sulfa (Sulfonamide Allergy Unverified 03/02/19 13:36 Antibiotics) General Stated Complaint: SOB KENYETTA: 3 Review of Systems Review of Systems Constitutional: denies fevers Eyes: denies eye pain ENT: denies facial pain, dental pain, sore throat Cardiovascular: denies chest pain, edema Respiratory: Reports SOB, cough GI: denies abdominal pain, vomiting, diarrhea : denies flank pain MSK: denies back pain, neck pain, arthralgias, myalgias Skin: denies rash Neuro: denies headaches, numbness, weakness PFSH Social History Smoking/Tobacco Use Status: Current every day Tobacco Type: cigarettes Alcohol Intake: never Drug use: Never Substance use type: does not use Do you feel safe at home: Yes Do you feel safe in your relationship?: Yes Exam Narrative Exam Narrative: Constitutional: well and [id number], pleasant, conversing normally HENT: head atraumatic/normocephalic/normal inspection, mucous membranes moist Eyes: conjunctiva normal, sclera normal, pupils 3mm b/l Neck: no stridor, normal ROM, trachea midline Chest: normal inspection Resp: normal work of breathing, expiratory wheeze bilaterally throughout, no rales or rhonchi Cardio: normal rate, normal rhythm, no murmur appreciated Back: normal inspection, no rash Skin: warm, dry, normal color, no rash Neuro: alert, not altered, grossly non-focal, normal tone Ext: no edema, no posterior calf tenderness Psych: normal mood, normal affect, normal behavior Course Vital Signs Temperature 36.7 C 03/02/19 13:34 Pulse 93 H 03/02/19 13:34 Respiratory Rate 20 03/02/19 13:34 Blood Pressure 141/80 H 03/02/19 13:34 Pulse Oximetry 96 03/02/19 13:34 Temperature 36.7 C 03/02/19 13:34 Temperature Source Skin 03/02/19 13:34 Pulse 93 H 03/02/19 13:34 Respiratory Rate 20 03/02/19 13:34 Blood Pressure 141/80 H 03/02/19 13:34 Pulse Oximetry 96 03/02/19 13:34 Oxygen Delivery Method Room Air 03/02/19 13:34 Oxygen Flow Rate 0 03/02/19 13:34 Pain Level 3 03/02/19 13:34
[2019-03-02] MEDS: Albuterol/Ipratropium 3 ML UPD VIAL UPD ×2 (14:14→15:12)
[2019-03-02 15:25] VITALS: BP 138/84; PULSE 87; RESP 20; TEMP 36.7; O2SAT 95
--- NOTE | 2019-03-02 15:25 | NUR.NOTE ---
patient reports feeling better after neb tx, will continue to monitor Nursing Note:
[2019-03-02] MEDS: predniSONE 20 MG TAB 60 MG PO (15:53)
[2019-03-02] MEDS: Doxycycline Hyclate 100 MG CAP PO (15:53)
--- NOTE | 2019-03-09 13:05 | ED.GENADUL_ITS ---
Discharge Plan Disposition Patient Disposition: HOME Condition: Stable Discharge Details Chief Complaint: SOB Clinical Impression: Cough, Asthma exacerbation Primary Care Provider: Pippa Madden ED Provider: Hellen Robbins Home Meds and New Rx's Prescriptions: New doxycycline hyclate 100 mg tablet 100 mg PO BID Qty: 27 RF: 0 prednisone 20 mg tablet 60 mg PO DAILY Qty: 12 RF: 0 Continued calcium carbonate [Calcium 500] 500 mg calcium (1,250 mg) Tablet 500 mg PO DAILY RF: 0 methadone 5 mg Tablet 50 mg PO DAILY RF: 0 sildenafil [Viagra] 50 mg Tablet 25 mg PO DAILY PRNRF: 0 famotidine 40 mg Tablet 40 mg PO BID RF: 0 methocarbamol 750 mg Tablet 750 mg PO QID PRNRF: 0 ferrous sulfate 325 mg (65 mg iron) Tablet 325 mg PO DAILY RF: 0 gabapentin 300 mg Capsule 300 mg PO BID RF: 0 Flovent HFA 220 mcg/actuation Hfa Aerosol Inhaler 1 puff INHALATION BID RF: 0 albuterol sulfate [Ventolin HFA] 90 mcg/actuation Hfa Aerosol Inhaler 2 dose Inhalation Q4H PRN PRNRF: 0 lisinopril 40 mg Tablet 40 mg PO DAILY RF: 0 fluticasone propionate [Flonase Allergy Relief] 50 mcg/actuation [place],Suspension 1 spray Intranasal DAILY RF: 0 finasteride 5 mg Tablet 5 mg PO DAILY RF: 0 bupropion HCl 300 mg Tablet Extended Release 24 Hr 300 mg PO DAILY RF: 0 ipratropium bromide 17 mcg/actuation Hfa Aerosol Inhaler 2 dose Inhalation Q6H PRN PRNRF: 0 miconazole-skin [Miconazole-3 prefil,cream,wipe] 4 % (200 mg)- 2 % (9 gram) Kit 1 dose Topical DAILY RF: 0 oxycodone 5 mg tablet 5 mg PO Q4H PRN (Reason: pain) Qty: 10 RF: 0 Discharge Instructions Instructions: Asthma (ED), Acute Cough (ED) Additional Instructions: Please return immediately to the emergency department he develop any new or worsening symptoms or if you become otherwise concerned. It is extremely important that you make an appointment to be seen in follow-up for this visit as soon as possible by her primary care doctor. Please take the prescribed doxycycline at a different time that you take your calcium and iron every day. Referrals: Pippa Madden [Primary Care Provider] - Discharge Data Discharge Date/Time-TO BE ENTERED AT DEPARTURE: 03/02/19 15:54 Medical Decision Making Jonathan Rob is a 64 y/o man with history of hypertension, current every day smoker who presented to the emergency department with 2 days of cough and shortness of breath. On exam patient is well and nontoxic appearing. He is in no respiratory distress. He has bilateral wheezes throughout on auscultation. Concern for pneumonia versus asthma exacerbation versus influenza. Plan for DuoNeb, prednisone, chest x-ray, flu swab. Will monitor and reassess. Patient reports shortness of breath completely resolved after 1 DuoNeb. On auscultation patient with wheeze improved but not entirely resolved. Plan for repeat DuoNeb. Patient with no further wheeze on auscultation after second DuoNeb. Flu swab negative. x-ray shows unclear acute versus chronic interstitial pulmonary process. Patient states that he has not been diagnosed with asthma, however he states that he does use his inhaler regularly for wheezing and has been an every day smoker for many years. Concern for asthma exacerbation and sm oker with questionable pulmonary findings, plan for doxycycline in addition to prednisone. I had a lengthy discussion with the patient regarding return to emergency department precautions, home care, radiologic findings with [id number], and importance of outpatient follow-up with PCP. Patient was discharged home with clear plan for follow-up. Patient verbalized understanding the plan was amenable. All questions were answered. Medical Records Medical records reviewed: Yes I reviewed the patient's medical records. Imaging Data Radiologic Study: Attestation: I personally reviewed and interpreted this imaging study as follows: Radiologist's impression: PA AND LATERAL CHEST: The heart is not enlarged. There appears to be some prominence of the pulmonary interstitial markings, which may be chronic. No focal consolidation seen. The possibility of a diffuse acute process, however, could not be excluded. No pleural effusions seen. 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 CONCLUSION: Mild diffuse pulmonary interstitial prominence, acute versus chronic process. Previous examination of 2007 did not show this finding. Follow-up chest film suggested. Lab Data Lab results reviewed: Yes I reviewed the patient's lab results. HPI General Mode of arrival: ambulatory . Date/Time Provider Initiated Documentation: 03/02/19 13:43 . Limitations to Documentation: no limitations . Information obtained by: patient, RN notes reviewed and old records reviewed . HPI Narrative: Jonathan Rob is a 64-year-old man with history of hypertension, current everyday smoker presenting to the emergency department with cough and shortness of breath. Patient reports that over the past 2 days he has had a nonproductive cough and mild shortness of breath that is worse with exertion. At rest he does not feel short of breath. He has had no chest pain or any other pain. No fever, no vomiting, no diarrhea, although he does report he had some sweating while at rest yesterday. This was not in the setting of shortness of breath or pain. Has been eating and drinking as usual. Patient denies history of asthma, although he says he does have an albuterol inhaler at home that he has been using over the past 2 days without much relief. No recent travel. No other recent illness. Related Data Home Medications Medication Instructions Recorded Confirmed Flovent HFA 1 puff INHALATION BID 09/13/18 03/02/19 albuterol sulfate [Ventolin HFA] 2 dose INHALATION Q4H PRN PRN 09/13/18 03/02/19 bupropion HCl 300 mg PO DAILY 09/13/18 03/02/19 calcium carbonate [Calcium 500] 500 mg PO DAILY 09/13/18 03/02/19 famotidine 40 mg PO BID 09/13/18 03/02/19 ferrous sulfate 325 mg PO DAILY 09/13/18 03/02/19 finasteride 5 mg PO DAILY 09/13/18 03/02/19 fluticasone propionate [Flonase 1 spray INTRANASAL DAILY 09/13/18 03/02/19 Allergy Relief] gabapentin 300 mg PO BID 09/13/18 03/02/19 ipratropium bromide 2 dose INHALATION Q6H PRN PRN 09/13/18 03/02/19 lisinopril 40 mg PO DAILY 09/13/18 03/02/19 methadone 50 mg PO DAILY 09/13/18 03/02/19 methocarbamol 750 mg PO QID PRN 09/13/18 03/02/19 miconazole-skin 1 dose TOPICAL DAILY 09/13/18 03/02/19 [Miconazole-3 prefil,cream,wipe] oxycodone 5 mg PO Q4H PRN #10 tab 09/13/18 03/02/19 sildenafil [Viagra] 25 mg PO DAILY PRN 09/13/18 03/02/19 doxycycline hyclate 100 mg PO BID #27 tab 03/02/19 prednisone 60 mg PO DAILY #12 tab 03/02/19 Previous Rx's Medication Instructions Recorded oxycodone 5 mg PO Q4H PRN #10 tab 09/13/18 doxycycline hyclate 100 mg PO BID #27 tab 03/02/19 prednisone 60 mg PO DAILY #12 tab 03/02/19 Allergies Allergy/AdvReac Type Severity Reaction Status Date / Time Sulfa (Sulfonamide Allergy Unverified 03/02/19 13:36 Antibiotics) General Stated Complaint: SOB KENYETTA: 3 Review of Systems Review of Systems Constitutional: denies fevers Eyes: denies eye pain ENT: denies facial pain, dental pain, sore throat Cardiovascular: denies chest pain, edema Respiratory: Reports SOB, cough GI: denies abdominal pain, vomiting, diarrhea : denies flank pain MSK: denies back pain, neck pain, arthralgias, myalgias Skin: denies rash Neuro: denies headaches, numbness, weakness PFSH Social History Smoking/Tobacco Use Status: Current every day Tobacco Type: cigarettes Alcohol Intake: never Drug use: Never Substance use type: does not use Do you feel safe at home: Yes Do you feel safe in your relationship?: Yes Exam Narrative Exam Narrative: Constitutional: well and [id number], pleasant, conv ersing normally HENT: head atraumatic/normocephalic/normal inspection, mucous membranes moist Eyes: conjunctiva normal, sclera normal, pupils 3mm b/l Neck: no stridor, normal ROM, trachea midline Chest: normal inspection Resp: normal work of breathing, expiratory wheeze bilaterally throughout, no rales or rhonchi Cardio: normal rate, normal rhythm, no murmur appreciated Back: normal inspection, no rash Skin: warm, dry, normal color, no rash Neuro: alert, not altered, grossly non-focal, normal tone Ext: no edema, no posterior calf tenderness Psych: normal mood, normal affect, normal behavior Course Vital Signs Temperature 36.7 C 03/02/19 13:34 Pulse 93 H 03/02/19 13:34 Respiratory Rate 20 03/02/19 13:34 Blood Pressure 141/80 H 03/02/19 13:34 Pulse Oximetry 96 03/02/19 13:34 Temperature 36.7 C 03/02/19 13:34 Temperature Source Skin 03/02/19 13:34 Pulse 93 H 03/02/19 13:34 Respiratory Rate 20 03/02/19 13:34 Blood Pressure 141/80 H 03/02/19 13:34 Pulse Oximetry 96 03/02/19 13:34 Oxygen Delivery Method Room Air 03/02/19 13:34 Oxygen Flow Rate 0 03/02/19 13:34 Pain Level 3 03/02/19 13:34
== END 2019-03-02 15:54 | disposition home or self-care (01) ==
PROVIDERS: Emergency Provider Student in an Organized Health Care Education/Training Program; PCP Student in an Organized Health Care Education/Training Program
DX: J45.901 Unspecified asthma with (acute) exacerbation (principal); I10 Essential (primary) hypertension; F17.210 Nicotine dependence, cigarettes, uncomplicated
CPT/HCPCS: 87449; 94640; 99283; 71046; J7512; J7620

== ENCOUNTER 2019-05-20 07:48 | Emergency (ER) | payer MEDICARE, SELFPAY ==
--- NOTE | 2019-05-20 07:57 | NUR.NOTE ---
Nursing Note: pt states that he developed a extremely productive cough 4 days ago the cough has persisted and today PT is here because he now has 8/10 pain in his upper chest/ neck when he coughs. PT attributes this to the fact that he stopped smoking around the same time his cough started
[2019-05-20 08:00] VITALS: BP 174/83; PULSE 70; RESP 16; TEMP 36.9; O2SAT 100
--- NOTE | 2019-05-20 08:15 | W.ED.GENAD ---
Discharge Plan Disposition Patient Disposition: HOME Condition: Improving Discharge Details Chief Complaint: RespSymp Clinical Impression: COPD (chronic obstructive pulmonary disease), GERD (gastroesophageal reflux disease) Primary Care Provider: Pippa Madden ED Provider: Srikanth Beaver Home Meds and New Rx's Prescriptions: New omeprazole 20 mg capsule,delayed release(DR/EC) 20 mg PO DAILY Qty: 14 RF: 0 prednisone 20 mg tablet 40 mg PO DAILY Qty: 4 RF: 0 Continued calcium carbonate [Calcium 500] 500 mg calcium (1,250 mg) Tablet 500 mg PO DAILY RF: 0 methadone 5 mg Tablet 50 mg PO DAILY RF: 0 famotidine 40 mg Tablet 40 mg PO BID RF: 0 methocarbamol 750 mg Tablet 750 mg PO QID PRNRF: 0 ferrous sulfate 325 mg (65 mg iron) Tablet 325 mg PO DAILY RF: 0 gabapentin 300 mg Capsule 300 mg PO BID RF: 0 Flovent HFA 220 mcg/actuation Hfa Aerosol Inhaler 1 puff INHALATION BID RF: 0 albuterol sulfate [Ventolin HFA] 90 mcg/actuation Hfa Aerosol Inhaler 2 dose Inhalation Q4H PRN PRNRF: 0 lisinopril 40 mg Tablet 40 mg PO DAILY RF: 0 fluticasone propionate [Flonase Allergy Relief] 50 mcg/actuation [place],Suspension 1 spray Intranasal DAILY RF: 0 finasteride 5 mg Tablet 5 mg PO DAILY RF: 0 bupropion HCl 300 mg Tablet Extended Release 24 Hr 300 mg PO DAILY RF: 0 ipratropium bromide 17 mcg/actuation Hfa Aerosol Inhaler 2 dose Inhalation Q6H PRN PRNRF: 0 miconazole-skin [Miconazole-3 prefil,cream,wipe] 4 % (200 mg)- 2 % (9 gram) Kit 1 dose Topical DAILY RF: 0 prednisone 20 mg tablet 60 mg PO DAILY Qty: 12 RF: 0 Discharge Instructions Instructions: COPD (Chronic Obstructive Pulmonary Disease) (ED), Gastroesophageal Reflux Disease (ED) Additional Instructions: Return immediately to the emergency department for any new or significant worsening of symptoms otherwise it is important that you begin your steroid tomorrow and follow-up with your study director next Saturday for reassessment as already scheduled. Otherwise take your normal prescribe medications as directed. Referrals: Pippa Madden [Primary Care Provider] - 1 week (for reassessment) Discharge Data Discharge Date/Time-TO BE ENTERED AT DEPARTURE: 05/20/19 11:32 Medical Decision Making Patient presenting the emergency department for chief complaint of cough and shortness of breath. Patient states that shortness of breath is been going on for greater than 2 months and his primary care is referred him to a study director at [facility] that he sees in about 5 days. Patient states he recently quit smoking and had an episode of vomiting over the weekend that is now stimulated some acid reflux and a persistent cough. He does state upper chest pain and discomfort that is been going on for his cough. Denies any fever chills, further vomiting, palpitations or irregular heartbeats. Physical exam shows diffuse scattered wheezing throughout all lung arevalo, otherwise nontoxic well-appearing patient in no signs of respiratory distress physical exam is otherwise unremarkable. Plan to do labs, chest x-ray, and EKG. pending results patient given DuoNeb. Review of CBC shows a mildly low anemia, no leukocytosis. Chest x-ray reviewed and interpreted as normal. Patient was reassessed and stated improvement of breathing after DuoNeb. Lung sounds show significant reduction in wheezing but now have diminished in bases. Plan to give additional albuterol. Patient continues to report burning heartburn sensation so GI cocktail was ordered pending additional results. Review of remaining results show a mildly elevated anion gap otherwise nondiagnostic CMP, negative troponin. Patient reassessed and states improvement after GI cocktail but still having mild gastric burning sensation. Patient states that he has not been taking his famotidine due to it not working and states he is previously on omeprazole. Patient given omeprazole in the emergency department and 2 weeks prescription to see if this helps with his GERD type symptoms along with steroid burst for his COPD exacerbation. Patient already scheduled to follow-up with pulmonology in approximately 5 days which I feel is beneficial for further treatment. Return precautions were discussed. After discussion of diagnosis and plan of care patient has no further needs, questions, or concerns and states clear understanding to return to the emergency department for any worsening symptoms. ECG Data Attestation: I personally reviewed and interpreted this ECG (s) as follows: Prior ECG tracings: available for review Interpretation: EKG reviewed with attending physician. today's EKG shows sinus rhythm, rate of 65, T wave inversion in V1 and V2, no stemi. Previous EKG from 05/22/2007 does show T wave inversions in V1 but not in V2. HPI General Mode of arrival: ambulatory. Date/Time Provider Initiated Documentation: 05/20/19 07:59. Limitations to Documentation: no limitations. Information obtained by: patient and RN notes reviewed. History of Present Illness 64 year old M presents to the emergency department with the chief complaint of Cough, shortness of breath, described as moderate and similar to prior episodes, Quality is described as aching, and is localized to the chest (upper). Patient started experiencing this day(s) (4) and it has been constant. Patient did receive the following treatments prior to arrival, other (Albuterol inhaler) Related Data Home Medications Medication Instructions Recorded Confirmed Flovent HFA 1 puff INHALATION BID 09/13/18 05/20/19 albuterol sulfate [Ventolin HFA] 2 dose INHALATION Q4H PRN PRN 09/13/18 05/20/19 bupropion HCl 300 mg PO DAILY 09/13/18 05/20/19 calcium carbonate [Calcium 500] 500 mg PO DAILY 09/13/18 05/20/19 famotidine 40 mg PO BID 09/13/18 05/20/19 ferrous sulfate 325 mg PO DAILY 09/13/18 05/20/19 finasteride 5 mg PO DAILY 09/13/18 05/20/19 fluticasone propionate [Flonase 1 spray INTRANASAL DAILY 09/13/18 05/20/19 Allergy Relief] gabapentin 300 mg PO BID 09/13/18 05/20/19 ipratropium bromide 2 dose INHALATION Q6H PRN PRN 09/13/18 05/20/19 lisinopril 40 mg PO DAILY 09/13/18 05/20/19 methadone 50 mg PO DAILY 09/13/18 05/20/19 methocarbamol 750 mg PO QID PRN 09/13/18 05/20/19 miconazole-skin 1 dose TOPICAL DAILY 09/13/18 05/20/19 [Miconazole-3 prefil,cream,wipe] prednisone 60 mg PO DAILY #12 tab 03/02/19 05/20/19 omeprazole 20 mg PO DAILY #14 cap 05/20/19 prednisone 40 mg PO DAILY #4 tab 05/20/19 Previous Rx's Medication Instructions Recorded prednisone 60 mg PO DAILY #12 tab 03/02/19 omeprazole 20 mg PO DAILY #14 cap 05/20/19 prednisone 40 mg PO DAILY #4 tab 05/20/19 Allergies Allergy/AdvReac Type Severity Reaction Status Date / Time Sulfa (Sulfonamide Allergy Unverified 03/02/19 13:36 Antibiotics) General Stated Complaint: RespSymp KENYETTA: 4 Review of Systems Constitutional Denies chills, Denies fever(s) and Denies malaise Cardiovascular Reports as per HPI, Reports chest pain (With coughing episodes), Denies chest pain with activity, Denies syncope, Denies irregular heart rhythm, Denies palpitations and Reports dyspnea on exertion Respiratory Reports as per HPI, Reports cough, Denies hemoptysis, Reports dyspnea on exertion and Reports wheezing Gastrointestinal Denies abdominal pain, Denies nausea and Reports vomiting Neurologic Denies syncope Psychiatric Reports anxiety Endocrine Denies palpitations Allergic/Immunologic Reports wheezing PFSH Social History Smoking/Tobacco Use Status: Current every day Tobacco Type: cigarettes Alcohol Intake: never Drug use: Never Substance use type: does not use Do you feel safe at home: Yes Do you feel safe in your relationship?: Yes Exam Const General: cooperative, healthy appearing, comfortable, no acute distress, not diaphoretic and not ill appearing Nutritional Appearance: average body habitus Orientation: alert, awake and oriented x3 Limitations: mental status not altered Neck Neck: normal visual inspection, full ROM, trachea midline, supple and no anterior neck swelling Thyroid: thyroid normal Carotids: normal carotid upstroke and no bruits Chest Chest: normal inspection of the chest Resp Effort & Inspection: normal respiratory effort and able to speak in complete sentences Auscultation: wheezes expiratory wheezes and scattered wheezes Cardio Jugular venous pressure: no JVD Palpation: normal PMI Rate: regular rate Rhythm: regular rhythm Heart Sounds: S1 normal, S2 normal, no click, no gallops, no murmurs and no rubs Bruits: no abdominal aortic bruits and no carotid bruits Pulses: radial pulses present bilaterally 2+ GI Inspection: normal to inspection Palpation: soft, no aortic enlargement, no pulsatile masses and nontender Auscultation: normal bowel sounds Skin General skin exam: no rashes or lesions noted Neuro General: alert, awake, oriented x3, tone normal and moves all extremities Course Vital Signs Temperature 36.9 C 05/20/19 08:00 Pulse 70 05/20/19 08:00 Respiratory Rate 16 05/20/19 08:00 Blood Pressure 174/83 H 05/20/19 08:00 Pulse Oximetry 100 05/20/19 08:00 Temperature 36.9 C 05/20/19 08:00 Temperature Source Skin 05/20/19 08:00 Pulse 70 05/20/19 08:00 Respiratory Rate 16 05/20/19 08:00 Blood Pressure 174/83 H 05/20/19 08:00 Blood Pressure Position Sitting 05/20/19 08:00 Pulse Oximetry 100 05/20/19 08:00 Oxygen Delivery Method Room Air 05/20/19 08:00 Oxygen Flow Rate 0 05/20/19 08:00 Pain Level 8 05/20/19 08:00
--- NOTE | 2019-05-20 08:22 | ED.GENADUL_ITS ---
Discharge Plan Disposition Patient Disposition: HOME Condition: Improving Discharge Details Chief Complaint: RespSymp Clinical Impression: COPD (chronic obstructive pulmonary disease), GERD (gastroesophageal reflux disease) Primary Care Provider: Pippa Madden ED Provider: Srikanth Beaver Home Meds and New Rx's Prescriptions: New omeprazole 20 mg capsule,delayed release(DR/EC) 20 mg PO DAILY Qty: 14 RF: 0 prednisone 20 mg tablet 40 mg PO DAILY Qty: 4 RF: 0 Continued calcium carbonate [Calcium 500] 500 mg calcium (1,250 mg) Tablet 500 mg PO DAILY RF: 0 methadone 5 mg Tablet 50 mg PO DAILY RF: 0 famotidine 40 mg Tablet 40 mg PO BID RF: 0 methocarbamol 750 mg Tablet 750 mg PO QID PRNRF: 0 ferrous sulfate 325 mg (65 mg iron) Tablet 325 mg PO DAILY RF: 0 gabapentin 300 mg Capsule 300 mg PO BID RF: 0 Flovent HFA 220 mcg/actuation Hfa Aerosol Inhaler 1 puff INHALATION BID RF: 0 albuterol sulfate [Ventolin HFA] 90 mcg/actuation Hfa Aerosol Inhaler 2 dose Inhalation Q4H PRN PRNRF: 0 lisinopril 40 mg Tablet 40 mg PO DAILY RF: 0 fluticasone propionate [Flonase Allergy Relief] 50 mcg/actuation [place],Suspension 1 spray Intranasal DAILY RF: 0 finasteride 5 mg Tablet 5 mg PO DAILY RF: 0 bupropion HCl 300 mg Tablet Extended Release 24 Hr 300 mg PO DAILY RF: 0 ipratropium bromide 17 mcg/actuation Hfa Aerosol Inhaler 2 dose Inhalation Q6H PRN PRNRF: 0 miconazole-skin [Miconazole-3 prefil,cream,wipe] 4 % (200 mg)- 2 % (9 gram) Kit 1 dose Topical DAILY RF: 0 prednisone 20 mg tablet 60 mg PO DAILY Qty: 12 RF: 0 Discharge Instructions Instructions: COPD (Chronic Obstructive Pulmonary Disease) (ED), Gastroesophageal Reflux Disease (ED) Additional Instructions: Return immediately to the emergency department for any new or significant worsening of symptoms otherwise it is important that you begin your steroid tomorrow and 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 Otherwise take your normal prescribe medications as directed. Referrals: Pippa Madden [Primary Care Provider] - 1 week (for reassessment) Discharge Data Discharge Date/Time-TO BE ENTERED AT DEPARTURE: 05/20/19 11:32 Medical Decision Making Patient presenting the emergency department for chief complaint of cough and shortness of breath. Patient states that shortness of breath is been going on for greater than 2 months and his primary care is referred him to a pulmono logist at [facility] that he sees in about 5 days. Patient states he recently quit smoking and had an episode of vomiting over the weekend that is now stimulated some acid reflux and a persistent cough. He does state upper chest pain and discomfort that is been going on for his cough. Denies any fever chills, further vomiting, palpitations or irregular heartbeats. Physical exam shows diffuse scattered wheezing throughout all lung arevalo, otherwise nontoxic well-appearing patient in no signs of respiratory distress physical exam is otherwise unremarkable. Plan to do labs, chest x-ray, and EKG. pending results patient given DuoNeb. Review of CBC shows a mildly low anemia, no leukocytosis. Chest x-ray reviewed and interpreted as normal. Patient was reassessed and stated improvement of breathing after DuoNeb. Lung sounds show significant reduction in wheezing but now have diminished in bases. Plan to give additional albuterol. Patient continues to report burning heartburn sensation so GI cocktail was ordered pending additional results. Review of remaining results show a mildly elevated anion gap otherwise nondiagnostic CMP, negative troponin. Patient reassessed and states improvement after GI cocktail but still having mild gastric burning sensation. Patient states that he has not been taking his famotidine due to it not working and states he is previously on omeprazole. Patient given omeprazole in the emergency department and 2 weeks prescription to see if this helps with his GERD type symptoms along with steroid burst for his COPD exacerbation. Patient already scheduled to follow-up with pulmonology in approximately 5 days which I feel is beneficial for further treatment. Return precautions were discussed. After discussion of diagnosis and plan of care patient has no further needs, questions, or concerns and states clear understanding to return to the emergency department for any worsening symptoms. ECG Data Attestation: I personally reviewed and interpreted this ECG (s) as follows: Prior ECG tracings: available for review Interpretation: EKG reviewed with attending physician. today's EKG shows sinus rhythm, rate of 65, T wave inversion in V1 and V2, no stemi. Previous EKG from 05/22/2007 does show T wave inversions in V1 but not in V2. HPI General Mode of arrival: ambulatory . Date/Time Provider Initiated Documentation: 05/20/19 07:59 . Limitations to Documentation: no limitations . Information obtained by: patient and RN notes reviewed . History of Present Illness 64 year old M presents to the emergency department with the chief complaint of Cough, shortness of breath, described as moderate and similar to prior episodes, Quality is described as aching, and is localized to the chest (upper). Patient started experiencing this day(s) (4) and it has been constant. Patient did receive the following treatments prior to arrival, other (Albuterol inhaler) Related Data Home Medications Medication Instructions Recorded Confirmed Flovent HFA 1 puff INHALATION BID 09/13/18 05/20/19 albuterol sulfate [Ventolin HFA] 2 dose INHALATION Q4H PRN PRN 09/13/18 05/20/19 bupropion HCl 300 mg PO DAILY 09/13/18 05/20/19 calcium carbonate [Calcium 500] 500 mg PO DAILY 09/13/18 05/20/19 famotidine 40 mg PO BID 09/13/18 05/20/19 ferrous sulfate 325 mg PO DAILY 09/13/18 05/20/19 finasteride 5 mg PO DAILY 09/13/18 05/20/19 fluticasone propionate [Flonase 1 spray INTRANASAL DAILY 09/13/18 05/20/19 Allergy Relief] gabapentin 300 mg PO BID 09/13/18 05/20/19 ipratropium bromide 2 dose INHALATION Q6H PRN PRN 09/13/18 05/20/19 lisinopril 40 mg PO DAILY 09/13/18 05/20/19 methadone 50 mg PO DAILY 09/13/18 05/20/19 methocarbamol 750 mg PO QID PRN 09/13/18 05/20/19 miconazole-skin 1 dose TOPICAL DAILY 09/13/18 05/20/19 [Miconazole-3 prefil,cream,wipe] prednisone 60 mg PO DAILY #12 tab 03/02/19 05/20/19 omeprazole 20 mg PO DAILY #14 cap 05/20/19 prednisone 40 mg PO DAILY #4 tab 05/20/19 Previous Rx's Medication Instructions Recorded prednisone 60 mg PO DAILY #12 tab 03/02/19 omeprazole 20 mg PO DAILY #14 cap 05/20/19 prednisone 40 mg PO DAILY #4 tab 05/20/19 Allergies Allergy/AdvReac Type Severity Reaction Status Date / Time Sulfa (Sulfonamide Allergy Unverified 03/02/19 13:36 Antibiotics) General Stated Complaint: RespSymp KENYETTA: 4 Review of Systems Constitutional Denies chills, Denies fever(s) and Denies malaise Cardiovascular Reports as per HPI, Reports chest pain (With coughing episodes), Denies chest pain with activity, Denies syncope, Denies irregular heart rhythm, Denies palpitations and Reports dyspnea on exertion Respiratory Reports as per HPI, Reports cough, Denies hemoptysis, Reports dyspnea on exertion and Reports wheezing Gastrointestinal Denies abdominal pain, Denies nausea and Reports vomiting Neurologic Denies syncope Psychiatric Reports anxiety Endocrine Denies palpitations Allergic/Immunologic Reports wheezing PFSH Social History Smoking/Tobacco Use Status: Current every day Tobacco Type: cigarettes Alcohol Intake: never Drug use: Never Substance use type: does not use Do you feel safe at home: Yes Do you feel safe in your relationship?: Yes Exam Const General: cooperative, healthy appearing, comfortable, no acute distress, not diaphoretic and not ill appearing Nutritional Appearance: average body habitus Orientation: alert, awake and oriented x3 Limitations: mental status not altered Neck Neck: normal visual inspection, full ROM, trachea midline, supple and no ante rior neck swelling Thyroid: thyroid normal Carotids: normal carotid upstroke and no bruits Chest Chest: normal inspection of the chest Resp Effort & Inspection: normal respiratory effort and able to speak in complete sentences Auscultation: wheezes expiratory wheezes and scattered wheezes Cardio Jugular venous pressure: no JVD Palpation: normal PMI Rate: regular rate Rhythm: regular rhythm Heart Sounds: S1 normal, S2 normal, no click, no gallops, no murmurs and no rubs Bruits: no abdominal aortic bruits and no carotid bruits Pulses: radial pulses present bilaterally 2+ GI Inspection: normal to inspection Palpation: soft, no aortic enlargement, no pulsatile masses and nontender Auscultation: normal bowel sounds Skin General skin exam: no rashes or lesions noted Neuro General: alert, awake, oriented x3, tone normal and moves all extremities Course Vital Signs Temperature 36.9 C 05/20/19 08:00 Pulse 70 05/20/19 08:00 Respiratory Rate 16 05/20/19 08:00 Blood Pressure 174/83 H 05/20/19 08:00 Pulse Oximetry 100 05/20/19 08:00 Temperature 36.9 C 05/20/19 08:00 Temperature Source Skin 05/20/19 08:00 Pulse 70 05/20/19 08:00 Respiratory Rate 16 05/20/19 08:00 Blood Pressure 174/83 H 05/20/19 08:00 Blood Pressure Position Sitting 05/20/19 08:00 Pulse Oximetry 100 05/20/19 08:00 Oxygen Delivery Method Room Air 05/20/19 08:00 Oxygen Flow Rate 0 05/20/19 08:00 Pain Level 8 05/20/19 08:00
[2019-05-20 08:53] LABS: Abs Immature Grans 0.01 k/cumm (0.0-0.09); Absolute Basophil Count 0.02 k/cumm (0.0-0.2); Absolute Eosinophil Count 0.28 k/cumm (0.0-0.7); Absolute Lymphocyte Count 2.33 k/cumm (1.2-3.4); Absolute Monocyte Count 0.85 k/cumm (0.11-0.7); Absolute Neutrophil Count 4.91 k/cumm (1.2-6.7); Basophils % 0.2; Eosinophils % 3.3; HCT 40.5 % (40.0-50.0); HGB 13.4 g/dL (13.5-17.5); Immature Grans % 0.1; Lymphocytes % 27.7; Mean Corp. HGB Concentration 33.1 g/dL (32.0-36.0); Mean Corpuscular Hemoglobin 26.2 pg (27.0-33.0); Mean Corpuscular Volume 79.3 fL (80-95); Mean Platelet Volume 9.1 fL (8.0-11.0); Monocytes % 10.1; Neutrophils % 58.6; Platelet Count 238 x1000/uL (130-400); RBC 5.11 m/cumm (4.50-6.00); RBC Distribution Width 15.6 % (11.8-14.1)
--- NOTE | 2019-05-20 09:07 | DI.RAD_ITS ---
SYMPTOM/DIAGNOSIS: COUGH PA AND LATERAL CHEST: The lungs are free of infiltrate. There is no pleural effusion. The cardiovascular structures appear intact. SUMMARY: No evidence of acute cardiopulmonary disease.
[2019-05-20] MEDS: Albuterol/Ipratropium 3 ML UPD VIAL UPD (09:26)
[2019-05-20 10:19] LABS: ALT 30 U/L (12-78); AST 20 U/L (15-37); Albumin 3.9 g/dL (3.4-5.0); Alkaline Phosphatase 89 U/L (46-116); Anion Gap 13.3 mmol/L (3-11); BUN 11 mg/dL (7-18); Bilirubin, Total 0.3 mg/dL (0.2-1.0); CO2 21.7 mmol/L (21.0-32.0); CREATININE 1.12 mg/dL (0.70-1.30); Calcium 8.8 mg/dL (8.5-10.1); Chloride 105 mmol/L (98-107); Glucose 98 mg/dL (70-100); Magnesium 2.2 mg/dL (1.8-2.4); Potassium 3.8 mmol/L (3.5-5.1); Sodium 140 mmol/L (136-145); Total Protein 7.5 g/dL (6.4-8.2)
[2019-05-20 10:21] LABS: Troponin I < 0.02 ng/mL (0.00-0.06)
== END 2019-05-20 11:32 | disposition home or self-care (01) ==
PROVIDERS: Emergency Provider Nurse Practitioner Family; PCP Student in an Organized Health Care Education/Training Program
DX: J44.9 Chronic obstructive pulmonary disease, unspecified (principal); K21.9 Gastro-esophageal reflux disease without esophagitis
CPT/HCPCS: 36415; 80053; 93005; 99285; 71046; 83735; 84484; 85025; 93010; J7620

== ENCOUNTER 2019-05-28 15:43 | Emergency (ER) | payer MEDICARE, SELFPAY ==
[2019-05-28 15:47] VITALS: BP 167/82; PULSE 98; RESP 16; TEMP 36.3; O2SAT 100
[2019-05-28 15:51] VITALS: RESP 16
[2019-05-28 16:51] LABS: Abs Immature Grans 0.03 k/cumm (0.0-0.09); Absolute Basophil Count 0.01 k/cumm (0.0-0.2); Absolute Eosinophil Count 0.13 k/cumm (0.0-0.7); Absolute Lymphocyte Count 1.92 k/cumm (1.2-3.4); Absolute Monocyte Count 0.91 k/cumm (0.11-0.7); Absolute Neutrophil Count 7.57 k/cumm (1.2-6.7); Basophils % 0.1; Eosinophils % 1.2; HCT 38.6 % (40.0-50.0); HGB 12.7 g/dL (13.5-17.5); Immature Grans % 0.3; Lymphocytes % 18.2; Mean Corp. HGB Concentration 32.9 g/dL (32.0-36.0); Mean Corpuscular Hemoglobin 25.9 pg (27.0-33.0); Mean Corpuscular Volume 78.6 fL (80-95); Mean Platelet Volume 8.9 fL (8.0-11.0); Monocytes % 8.6; Neutrophils % 71.6; Platelet Count 222 x1000/uL (130-400); RBC 4.91 m/cumm (4.50-6.00); RBC Distribution Width 15.5 % (11.8-14.1); White Blood Cell Count 10.57 k/cumm (4.4-10.8)
[2019-05-28 17:33] LABS: Bilirubin Negative (Negative); Blood Negative (Negative); Clarity Clear (Clear); Glucose Negative (Negative); Ketones Negative (Negative); Leukocyte Esterase Negative (Negative); Nitrite Negative (Negative); Urobilinogen >=8.0 EU/dL (Up TO 0.2); pH 6.5 (5-8)
[2019-05-28 17:52] LABS: ALT 19 U/L (12-78); AST 10 U/L (15-37); Albumin 3.3 g/dL (3.4-5.0); Alkaline Phosphatase 84 U/L (46-116); BUN 12 mg/dL (7-18); Bilirubin, Total 0.5 mg/dL (0.2-1.0); CREATININE 0.96 mg/dL (0.70-1.30); Calcium 8.4 mg/dL (8.5-10.1); Chloride 100 mmol/L (98-107); Glucose 95 mg/dL (70-100); Potassium 3.7 mmol/L (3.5-5.1); Sodium 135 mmol/L (136-145); Total Protein 6.9 g/dL (6.4-8.2)
[2019-05-28 17:54] VITALS: BP 179/82; PULSE 83; RESP 16; O2SAT 98
[2019-05-28] MEDS: Furosemide 20 MG TAB PO ×2 (18:18→18:56)
[2019-05-28 18:35] VITALS: BP 171/78; PULSE 87; RESP 14; TEMP 37.4; O2SAT 98
--- NOTE | 2019-05-28 18:49 | W.ED.GENAD ---
Discharge Plan Disposition Patient Disposition: HOME Condition: Stable Discharge Details Chief Complaint: GenMedical Clinical Impression: Cellulitis, Bilateral edema of lower extremity Primary Care Provider: Pippa Madden ED Provider: Srikanth Beaver Home Meds and New Rx's Prescriptions: New cephalexin 500 mg capsule 500 mg PO QID 4 Days Qty: 16 RF: 0 Continued omeprazole 20 mg capsule,delayed release(DR/EC) 20 mg PO DAILY Qty: 14 RF: 0 calcium carbonate [Calcium 500] 500 mg calcium (1,250 mg) Tablet 500 mg PO DAILY RF: 0 methadone 5 mg Tablet 50 mg PO DAILY RF: 0 famotidine 40 mg Tablet 40 mg PO BID RF: 0 methocarbamol 750 mg Tablet 750 mg PO QID PRNRF: 0 ferrous sulfate 325 mg (65 mg iron) Tablet 325 mg PO DAILY RF: 0 gabapentin 300 mg Capsule 300 mg PO BID RF: 0 Flovent HFA 220 mcg/actuation Hfa Aerosol Inhaler 1 puff INHALATION BID RF: 0 albuterol sulfate [Ventolin HFA] 90 mcg/actuation Hfa Aerosol Inhaler 2 dose Inhalation Q4H PRN PRNRF: 0 lisinopril 40 mg Tablet 40 mg PO DAILY RF: 0 fluticasone propionate [Flonase Allergy Relief] 50 mcg/actuation [place],Suspension 1 spray Intranasal DAILY RF: 0 finasteride 5 mg Tablet 5 mg PO DAILY RF: 0 bupropion HCl 300 mg Tablet Extended Release 24 Hr 300 mg PO DAILY RF: 0 ipratropium bromide 17 mcg/actuation Hfa Aerosol Inhaler 2 dose Inhalation Q6H PRN PRNRF: 0 miconazole-skin [Miconazole-3 prefil,cream,wipe] 4 % (200 mg)- 2 % (9 gram) Kit 1 dose Topical DAILY RF: 0 Discontinued prednisone 20 mg tablet 40 mg PO DAILY Qty: 4 RF: 0 prednisone 20 mg tablet 60 mg PO DAILY Qty: 12 RF: 0 Discharge Instructions Instructions: Cellulitis (ED), Leg Edema (ED) Additional Instructions: Return immediately to the emergency department for any new or significant worsening of symptoms, no improvement after being on antibiotics and for 48 hours, or any further concerns. Otherwise follow-up with your primary care provider for reassessment and keep your normally previously arranged appointments. Referrals: Pippa Madden [Primary Care Provider] - Discharge Data Discharge Date/Time-TO BE ENTERED AT DEPARTURE: 05/28/19 19:00 Medical Decision Making Patient presenting to the emergency department for chief complaint of bilateral lower leg swelling, redness, and pain. Patient states that this started suddenly yesterday and even light touch of the lower extremities causes discomfort. Patient states that he did just finish a steroid for his breathing that is significantly improved. Patient denies any chest pain, shortness of breath, difficulty breathing, fever chills, denies any other medical complaints at this time. Physical exam shows bilateral lower extremity edema that is 1+ pitting from the ankle up to the mid cabral. There is also significant erythema and warmth to this area without clear demarcation and mostly to the anterior surfaces. Pulses are present and remainder of exam is otherwise unremarkable. Plan to check labs. Differential diagnosis to include cellulitis, peripheral vascular disease, or less likely Elaine dermatitis. Review of labs show no significant leukocytosis, baseline anemia, mildly low sodium, otherwise nondiagnostic CMP, negative urinalysis. Plan to treat with dose of furosemide in the emergency department and additional dose tomorrow to help remove fluid, place patient on antibiotic for concern of cellulitisPatient placed on Keflex. while I feel that it is odd that it is bilateral on the lower extremities I do not feel that this is obvious dermatitis causing his symptoms either. this was fully discussed with patient and he was informed for any new or worsening symptoms he should return. After discussion of diagnosis and plan of care patient has no further needs, questions, or concerns and states clear understanding to return to the emergency department for any worsening symptoms. HPI General Mode of arrival: ambulatory. Date/Time Provider Initiated Documentation: 05/28/19 15:56. Limitations to Documentation: no limitations. Information obtained by: patient and RN notes reviewed. History of Present Illness 64 year old M presents to the emergency department with the chief complaint of Lower leg swelling and redness, described as moderate, with intensity rated at 7. Quality is described as aching, and is localized to the lower extremity (Bilateral from ankles up to below knee). Patient started experiencing this day(s) (1) and it has been constant. No relieving factors improve symptom(s), No exacerbating factors reported . Patient notes no other symptoms.. Patient did receive the following treatments prior to arrival, none Related Data Home Medications Medication Instructions Recorded Confirmed Flovent HFA 1 puff INHALATION BID 09/13/18 05/20/19 albuterol sulfate [Ventolin HFA] 2 dose INHALATION Q4H PRN PRN 09/13/18 05/20/19 bupropion HCl 300 mg PO DAILY 09/13/18 05/20/19 calcium carbonate [Calcium 500] 500 mg PO DAILY 09/13/18 05/20/19 famotidine 40 mg PO BID 09/13/18 05/20/19 ferrous sulfate 325 mg PO DAILY 09/13/18 05/20/19 finasteride 5 mg PO DAILY 09/13/18 05/20/19 fluticasone propionate [Flonase 1 spray INTRANASAL DAILY 09/13/18 05/20/19 Allergy Relief] gabapentin 300 mg PO BID 09/13/18 05/20/19 ipratropium bromide 2 dose INHALATION Q6H PRN PRN 09/13/18 05/20/19 lisinopril 40 mg PO DAILY 09/13/18 05/20/19 methadone 50 mg PO DAILY 09/13/18 05/20/19 methocarbamol 750 mg PO QID PRN 09/13/18 05/20/19 miconazole-skin 1 dose TOPICAL DAILY 09/13/18 05/20/19 [Miconazole-3 prefil,cream,wipe] omeprazole 20 mg PO DAILY #14 cap 05/20/19 cephalexin 500 mg PO QID 4 Days #16 cap 05/28/19 Previous Rx's Medication Instructions Recorded omeprazole 20 mg PO DAILY #14 [facility] 05/20/19 cephalexin 500 mg PO QID 4 Days #16 [facility] 05/28/19 Allergies Allergy/AdvReac Type Severity Reaction Status Date / Time Sulfa (Sulfonamide Allergy Unverified 03/02/19 13:36 Antibiotics) General Stated Complaint: GenMedical KENYETTA: 3 Review of Systems Constitutional Denies chills and Denies fever(s) Cardiovascular Denies chest pain, Reports pedal edema, Denies palpitations, Denies dyspnea, Denies dyspnea on exertion and Denies orthopnea Respiratory Denies dyspnea and Denies dyspnea on exertion Gastrointestinal Denies abdominal pain, Denies nausea and Denies vomiting Integumentary/Breasts Reports as per HPI and Reports erythema Endocrine Denies palpitations PFS Social History Smoking/Tobacco Use Status: Current every day Tobacco Type: cigarettes Smoking cigarettes per day: 2 Years smoked: 45 Alcohol Intake: never Drug use: Never Substance use type: does not use Do you feel safe at home: Yes Do you feel safe in your relationship?: Yes Exam Const General: cooperative, no acute distress and not ill appearing Orientation: alert, awake and oriented x3 HENMT Mouth: moist mucous membranes Resp Effort & Inspection: normal respiratory effort, able to speak in complete sentences and no respiratory distress Auscultation: clear to auscultation bilaterally Cardio Rate: regular rate Rhythm: regular rhythm Heart Sounds: S1 normal and S2 normal Pulses: posterior tibial pulses present and dorsalis pedis pulses present Skin General skin exam: dry skin (Bilateral ankles) and erythema (To bilateral anterior lower legs from ankle to mid cabral) Neuro General: alert, awake, oriented x3, moves all extremities and no focal motor deficits Extrem General: edema Laterality: bilateral (1+ pitting) Course Vital Signs Temperature 36.3 C L 05/28/19 15:47 Pulse 98 H 05/28/19 15:47 Respiratory Rate 16 05/28/19 15:47 Blood Pressure 167/82 H 05/28/19 15:47 Pulse Oximetry 100 05/28/19 15:47 Temperature 37.4 C 05/28/19 18:35 Temperature Source Temporal Artery Scan 05/28/19 17:54 Pulse 87 05/28/19 18:35 Respiratory Rate 14 05/28/19 18:35 Respiratory Effort 05/28/19 15:51 Respiratory Depth Shallow 05/28/19 15:51 Respiratory Pattern Irregular 05/28/19 15:51 Blood Pressure 171/78 H 05/28/19 18:35 Blood Pressure Position Sitting 05/28/19 15:47 Pulse Oximetry 98 05/28/19 18:35 Oxygen Delivery Method Room Air 05/28/19 17:54 Oxygen Flow Rate 0 05/28/19 17:54 Lab/Test Results Lab/Test Results: Laboratory Tests Range/Units 05/28/19 05/28/19 05/28/19 14:30 14:30 17:18 WBC (4.4-10.8) k/cumm 10.57 RBC (4.50-6.00) m/cumm 4.91 Hgb (13.5-17.5) g/dL 12.7 L Hct (40.0-50.0) % 38.6 L MCV (80-95) fL 78.6 L MCH (27.0-33.0) pg 25.9 L MCHC (32.0-36.0) g/dL 32.9 RDW (11.8-14.1) % 15.5 H Plt Count (130-400) x1000/uL 222 MPV (8.0-11.0) fL 8.9 Immature Gran % 0.3 Neutrophils % 71.6 Lymphocytes % 18.2 Monocytes % 8.6 Eosinophils % 1.2 Basophils % 0.1 Absolute Neutrophils (1.2-6.7) k/cumm 7.57 H Absolute Lymphocytes (1.2-3.4) k/cumm 1.92 Absolute Monocytes (0.11-0.7) k/cumm 0.91 H Absolute Eosinophils (0.0-0.7) k/cumm 0.13 Absolute Basophils (0.0-0.2) k/cumm 0.01 Sodium Cancelled 135 L Potassium Cancelled 3.7 Chloride Cancelled 100 Carbon Dioxide Cancelled 25.0 Anion Gap Cancelled 10.0 BUN Cancelled 12 Creatinine Cancelled 0.96 Estimated GFR/1.73 m2 Cancelled >= 60.00 Glucose Cancelled 95 Calcium Cancelled 8.4 L Total Bilirubin Cancelled 0.5 AST Cancelled 10 L ALT Cancelled 19 Alkaline Phosphatase Cancelled 84 Total Protein Cancelled 6.9 Albumin Cancelled 3.3 L Urine Color (Yellow) Urine Clarity (Clear) Urine pH (5-8) Ur Specific [place] (1.005-1.025) Urine Protein (Negative) mg/dL Urine Ketones (Negative) mg/dL Urine Blood (Negative) Urine Nitrite (Negative) Urine Bilirubin (Negative) Urine Urobilinogen (Up TO 0.2) EU/dL Ur Leukocyte Esterase (Negative) Urine Glucose (Negative) mg/dL Range/Units 05/28/19 17:20 WBC (4.4-10.8) k/cumm RBC (4.50-6.00) m/cumm Hgb (13.5-17.5) g/dL Hct (40.0-50.0) % MCV (80-95) fL MCH (27.0-33.0) pg MCHC (32.0-36.0) g/dL RDW (11.8-14.1) % Plt Count (130-400) x1000/uL MPV (8.0-11.0) fL Immature Gran % Neutrophils % Lymphocytes % Monocytes % Eosinophils % Basophils % Absolute Neutrophils (1.2-6.7) k/cumm Absolute Lymphocytes (1.2-3.4) k/cumm Absolute Monocytes (0.11-0.7) k/cumm Absolute Eosinophils (0.0-0.7) k/cumm Absolute Basophils (0.0-0.2) k/cumm Sodium Potassium Chloride Carbon Dioxide Anion Gap BUN Creatinine Estimated GFR/1.73 m2 Glucose Calcium Total Bilirubin AST ALT Alkaline Phosphatase Total Protein Albumin Urine Color (Yellow) Yellow Urine Clarity (Clear) Clear Urine pH (5-8) 6.5 Ur Specific [place] (1.005-1.025) 1.020 Urine Protein (Negative) mg/dL Negative Urine Ketones (Negative) mg/dL Negative Urine Blood (Negative) Negative Urine Nitrite (Negative) Negative Urine Bilirubin (Negative) Negative Urine Urobilinogen (Up TO 0.2) EU/dL >=8.0 Ur Leukocyte Esterase (Negative) Negative Urine Glucose (Negative) mg/dL Negative
[2019-05-28] MEDS: Cephalexin 500 MG CAP PO (18:55)
[2019-05-28] MEDS: Cephalexin 500 MG CAP 1500 MG PO (18:56)
== END 2019-05-28 19:00 | disposition home or self-care (01) ==
PROVIDERS: Emergency Provider Nurse Practitioner Family; PCP Student in an Organized Health Care Education/Training Program
DX: L03.115 Cellulitis of right lower limb (principal); L03.116 Cellulitis of left lower limb; R60.0 Localized edema
CPT/HCPCS: 36415; 80053; 99283; 81003; 85025

== ENCOUNTER 2019-06-02 12:18 | Emergency (ER) | payer MEDICARE, SELFPAY ==
[2019-06-02 12:22] VITALS: BP 190/158; PULSE 84; RESP 20; TEMP 36.7; O2SAT 97
[2019-06-02 12:33] VITALS: BP 178/90
--- NOTE | 2019-06-02 12:52 | DI.US_ITS ---
SYMPTOMS/DIAGNOSIS: CELLULITIS, LOCALIZED SWELLING OF BOTH LEGS, ? DVT BILATERAL LOWER EXTREMITY ULTRASOUND: The femoral and popliteal veins and visualized calf veins are freely compressible. The Doppler venous waveform augments normally. The saphenous veins also appear free of thrombus. No Sung's cyst is seen. IMPRESSION: Negative bilateral breast ultrasound. No evidence of deep or superficial thrombophlebitis.
--- NOTE | 2019-06-02 13:36 | ED.GENADUL_ITS ---
Discharge Plan Disposition Patient Disposition: HOME Condition: Good Discharge Details Chief Complaint: Cellulitis Clinical Impression: Localized swelling of both lower legs Primary Care Provider: Pippa Madden ED Provider: Norman Siddiqi Home Meds and New Rx's Prescriptions: New furosemide [Lasix] 20 mg tablet 20 mg PO DAILY Qty: 1 RF: 0 No Action omeprazole 20 mg capsule,delayed release(DR/EC) 20 mg PO DAILY Qty: 14 RF: 0 calcium carbonate [Calcium 500] 500 mg calcium (1,250 mg) Tablet 500 mg PO DAILY RF: 0 methadone 5 mg Tablet 50 mg PO DAILY RF: 0 famotidine 40 mg Tablet 40 mg PO BID RF: 0 methocarbamol 750 mg Tablet 750 mg PO QID PRNRF: 0 ferrous sulfate 325 mg (65 mg iron) Tablet 325 mg PO DAILY RF: 0 gabapentin 300 mg Capsule 300 mg PO BID RF: 0 Flovent HFA 220 mcg/actuation Hfa Aerosol Inhaler 1 puff INHALATION BID RF: 0 albuterol sulfate [Ventolin HFA] 90 mcg/actuation Hfa Aerosol Inhaler 2 dose Inhalation Q4H PRN PRNRF: 0 lisinopril 40 mg Tablet 40 mg PO DAILY RF: 0 fluticasone propionate [Flonase Allergy Relief] 50 mcg/actuation [place],Suspension 1 spray Intranasal DAILY RF: 0 finasteride 5 mg Tablet 5 mg PO DAILY RF: 0 bupropion HCl 300 mg Tablet Extended Release 24 Hr 300 mg PO DAILY RF: 0 ipratropium bromide 17 mcg/actuation Hfa Aerosol Inhaler 2 dose Inhalation Q6H PRN PRNRF: 0 miconazole-skin [Miconazole-3 prefil,cream,wipe] 4 % (200 mg)- 2 % (9 gram) Kit 1 dose Topical DAILY RF: 0 Discharge Instructions Instructions: Leg Edema (ED) Additional Instructions: At this time the ultrasound shows no evidence of blood clot in your legs. Your infection has resolved. Please finish her last dose of antibiotic as directed. Please avoid any salty foods including canned soups, preserved meats, potato chips, or anything containing salt. Please keep the stockings on at all times and keep your feet raise to help increase the drainage of the fluid. Please take the single Lasix water pill tomorrow if you still noticed the presence of the swelling. If you notice any worsening of your symptoms, or any new symptoms such as vomiting, diarrhea, fever, chills, shortness of breath, chest pain, numbness, weakness, or fainting , please return immediately to the emergency department for reevaluation. Please follow up with your primary care provider as soon as possible for reassessment and reevaluation. As always, it was a pleasure participating in your medical care today. Referrals: Pippa Madden [Primary Care Provider] - Medical Decision Making This is a pleasant 64-year-old -[place] male who presents today for evaluation of swelling of his lower extremities. He was seen and assessed here over a week ago for the swelling with some mild redness at that time. He was started on Keflex. This redness is completely resolved. None is currently present. Swelling is roughly +1 bilaterally primarily near his ankles. No evidence of deformity, calf tenderness, redness, fever or chills. Signs and symptoms appear consistent with lower extremity edema most likely secondary to significant salt intake. The patient states that he has not been elevating his legs, and has been eating notable salty foods over the last few days. Due to his distant history of a DVT we did get an ultrasound to rule out DVT. Ultrasound per radiology shows no evidence of acute DVT or clot. I suspect the cause of her symptoms is mild fluid retention secondary to diet. We will give JOSE stockings, dose of Lasix here in 1 to go home with, and recommend close follow-up with his PCP as well as diet modification I have extensively reviewed the treatment plan and discharge instructions with the patient and their family. I have addressed all patient concerns at this time. The patient and family was made aware of what symptoms to monitor for that would warrant a return to the emergency department. Discussed the plan with the patient and family, they demonstrate verbal understanding and agreement with our assessment and plan at this time. HPI General Date/Time Provider Initiated Documentation: 06/02/19 12:33 . HPI Narrative: This is a 64-year-old -[place] male with a past medical history of r eflux, hypertension, asthma, who presents today for swelling in his lower extremities. Patient was seen and assessed here over a week ago, at that time there is mild amount of swelling, but also some redness. There is concern for very mild questionable cellulitis, he was started on Keflex. He is taking this almost to completion, and has only 1 day left. He feels that the swelling is gotten significantly better but still feels that there is a mild amount that is present. He has a very small amount of darkening of the skin and around the ankles, which does appear slightly pugh which I feel secondary to the swelling that he had before which is now improved with the excess skin. He states that the redness is nearly resolved, he denies any fever or chills. He denies any significant pain in his calves, but does have mild pain in his ankles when he ambulates. He denies any blood thinner use, but does have a history of clots in the distant past. Patient denies any other complaints modifying factors at this time. Related Data Home Medications Medication Instructions Recorded Confirmed Flovent HFA 1 puff INHALATION BID 09/13/18 06/02/19 albuterol sulfate [Ventolin HFA] 2 dose INHALATION Q4H PRN PRN 09/13/18 06/02/19 bupropion HCl 300 mg PO DAILY 09/13/18 06/02/19 calcium carbonate [Calcium 500] 500 mg PO DAILY 09/13/18 06/02/19 famotidine 40 mg PO BID 09/13/18 06/02/19 ferrous sulfate 325 mg PO DAILY 09/13/18 06/02/19 finasteride 5 mg PO DAILY 09/13/18 06/02/19 fluticasone propionate [Flonase 1 spray INTRANASAL DAILY 09/13/18 06/02/19 Allergy Relief] gabapentin 300 mg PO BID 09/13/18 06/02/19 ipratropium bromide 2 dose INHALATION Q6H PRN PRN 09/13/18 06/02/19 lisinopril 40 mg PO DAILY 09/13/18 06/02/19 methadone 50 mg PO DAILY 09/13/18 06/02/19 methocarbamol 750 mg PO QID PRN 09/13/18 06/02/19 miconazole-skin 1 dose TOPICAL DAILY 09/13/18 06/02/19 [Miconazole-3 prefil,cream,wipe] omeprazole 20 mg PO DAILY #14 cap 05/20/19 06/02/19 furosemide [Lasix] 20 mg PO DAILY #1 tab 06/02/19 Previous Rx's Medication Instructions Recorded omeprazole 20 mg PO DAILY #14 cap 05/20/19 furosemide [Lasix] 20 mg PO DAILY #1 tab 06/02/19 Allergies Allergy/AdvReac Type Severity Reaction Status Date / Time Sulfa (Sulfonamide Allergy Unverified 06/02/19 12:26 Antibiotics) General Stated Complaint: Cellulitis KENYETTA: 3 Review of Systems Review of Systems All systems reviewed & are unremarkable except as noted in HPI and below PFSH Social History Smoking/Tobacco Use Status: Former Tobacco Use Quit Date: 04/05/19 Alcohol Intake: never Drug use: Never Substance use type: does not use Do you feel safe at home: Yes Do you feel safe in your relationship?: Yes Exam Narrative Exam Narrative: 1.Const: Well-nourished, Well-developed, appearing stated age 2.Eyes: PERRL, no conjunctival injection, and symmetrical lids. 3.ENT: Atraumatic external nose and ears. Moist MM. Neck: Symmetric, trachea midline, No thyromegaly. 4.CVS: +S1/S2, No murmurs or gallops. Peripheral pulses 2+ and equal in all ex tremities. Brisk capillary refill in all extremities. 5.RESP: Unlabored respiratory effort. Clear to auscultation bilaterally. No wheezes rales or rhonchi 6.GI: Soft, Nontender/Nondistended, No hepatosplenomegaly. No guarding or rebound. 7.MSK: Normocephalic/Atraumatic, Extremities w/o deformity or ttp No cyanosis or clubbing, Normal movement of all extremities. Minimal +1 pitting edema of the lower extremities bilaterally worse at the ankles, no evidence of calf tenderness. Capillary refill is brisk, dorsalis pedis posterior tibial pulse +2 bilaterally. Normal movement of the ankles with no evidence of significant deformity or weakness. Normal sensation throughout. 8.Skin: Warm, Dry. No rashes or lesions. No evidence of skin breakdown, vesicles, no significant redness, erythema or warmth. No evidence of cellulitis 9.Neuro: laminator II-XII grossly intact. Sensation grossly intact, no focal neurologic deficits. 10.Psych: (AAO) x3. Appropriate mood and affect Course Vital Signs Temperature 36.7 C 06/02/19 12:22 Pulse 84 06/02/19 12:22 Respiratory Rate 20 06/02/19 12:22 Blood Pressure 190/158 H 06/02/19 12:22 Pulse Oximetry 97 06/02/19 12:22 Temperature 36.7 C 06/02/19 12:22 Temperature Source Skin 06/02/19 12:22 Pulse 84 06/02/19 12:22 Respiratory Rate 20 06/02/19 12:22 Respiratory Effort 06/02/19 12:25 Blood Pressure 178/90 H 06/02/19 12:33 Blood Pressure Position Sitting 06/02/19 12:22 Pulse Oximetry 97 06/02/19 12:22 Oxygen Delivery Method Room Air 06/02/19 12:22 Oxygen Flow Rate 0 06/02/19 12:22 Pain Level 8 06/02/19 12:22 Comment 06/02/19 12:22
[2019-06-02 14:21] VITALS: BP 178/90; PULSE 84; RESP 20; TEMP 36.7; O2SAT 97
[2019-06-02] MEDS: Furosemide 20 MG TAB PO (14:21)
== END 2019-06-02 14:21 | disposition home or self-care (01) ==
PROVIDERS: Emergency Provider Student in an Organized Health Care Education/Training Program; PCP Student in an Organized Health Care Education/Training Program
DX: R60.0 Localized edema (principal)
CPT/HCPCS: 99284; 93970; 99283

== ENCOUNTER 2019-11-09 10:12 | Emergency (ER) | payer MEDICARE, SELFPAY ==
[2019-11-09 10:17] VITALS: BP 166/81; PULSE 87; RESP 16; TEMP 36.1; O2SAT 95
--- NOTE | 2019-11-09 10:40 | W.ED.GENAD ---
Discharge Plan Disposition Patient Disposition: HOME Condition: Improving Discharge Details Chief Complaint: RespSymp Clinical Impression: Upper respiratory infection, COPD exacerbation Primary Care Provider: Pippa Madden ED Provider: Dhara Villalobos Home Meds and New Rx's Prescriptions: New prednisone 20 mg tablet 20 mg PO DAILY Qty: 3 RF: 0 doxycycline hyclate 100 mg capsule 100 mg PO BID Qty: 14 RF: 0 No Action omeprazole 20 mg capsule,delayed release(DR/EC) 20 mg PO DAILY Qty: 14 RF: 0 calcium carbonate [Calcium 500] 500 mg calcium (1,250 mg) Tablet 500 mg PO DAILY RF: 0 methadone 5 mg Tablet 50 mg PO DAILY RF: 0 famotidine 40 mg Tablet 40 mg PO BID RF: 0 methocarbamol 750 mg Tablet 750 mg PO QID PRNRF: 0 ferrous sulfate 325 mg (65 mg iron) Tablet 325 mg PO DAILY RF: 0 gabapentin 300 mg Capsule 300 mg PO BID RF: 0 Flovent HFA 220 mcg/actuation Hfa Aerosol Inhaler 1 puff INHALATION BID RF: 0 albuterol sulfate [Ventolin HFA] 90 mcg/actuation Hfa Aerosol Inhaler 2 dose Inhalation Q4H PRN PRNRF: 0 lisinopril 40 mg Tablet 40 mg PO DAILY RF: 0 fluticasone propionate [Flonase Allergy Relief] 50 mcg/actuation [place],Suspension 1 spray Intranasal DAILY RF: 0 finasteride 5 mg Tablet 5 mg PO DAILY RF: 0 bupropion HCl 300 mg Tablet Extended Release 24 Hr 300 mg PO DAILY RF: 0 ipratropium bromide 17 mcg/actuation Hfa Aerosol Inhaler 2 dose Inhalation Q6H PRN PRNRF: 0 miconazole-skin [Miconazole-3 prefil,cream,wipe] 4 % (200 mg)- 2 % (9 gram) Kit 1 dose Topical DAILY RF: 0 furosemide [Lasix] 20 mg tablet 20 mg PO DAILY Qty: 1 RF: 0 Discharge Instructions Instructions: Upper Respiratory Infection (ED), COPD (Chronic Obstructive Pulmonary Disease) (ED) Additional Instructions: Drink plenty of fluids. Rest activities as tolerated. Antibiotic as prescribed. Continue your daily inhalers. Use prednisone for the next few days to decrease inflammation of the lung. Continue to stop smoking. Congratulations. Recheck with your primary care doctor in the next 3 to 5 days for reevaluation for persistence or worsening. Return if needed sooner for any alarming symptoms, worsening or concern Medical Decision Making This is a 64-year-old man with a history of emphysema on 3 controller inhalers. Who presents for complaints of cough which is productive for the last 4 to 5 days. Patient reports associated chills and feverish sensation subjectively. Patient reports productive cough with green and brown sputum. Patient reports increase in wheezing. Patient reports after 45 years of smoking he stopped smoking 2 to 3 weeks ago. Patient has been eating and drinking without difficulty. No abdominal pain. Patient appears nontoxic however has diffuse wheezing through his breath sounds. Patient has mild pharyngeal erythema. Nebulizer treatment ordered as well as chest x-ray to rule out pneumonia. Chest x-ray reveals no obvious pneumonia at this time. Discussed results with patient. He does not feel he needs any additional breathing treatments at this time and does feel significantly improved. His preference is antibiotic treatment at this time given the moderate production he is experiencing although some of this may have been due to recent smoking cessation. Patient also prefers a few days a steroid treatment for symptomatic relief. Patient encouraged close follow-up with his primary care doctor. Patient is afebrile. Vital signs reviewed. Patient is comfortable with plan of care. The patient was stable and requested discharge. Prior to discharge, my usual and customary return precautions were reviewed with the patient - this included follow-up instructions and reasons to return to the Emergency Department if conditions worsens, does not improve as expected, or other new concerns arise. HPI General Date/Time Provider Initiated Documentation: 11/09/19 10:13. HPI Narrative: This is 64-year-old patient presenting for complaints of a productive cough for the last 4 to 5 days. He reportedly is concerned with the possibility of pneumonia. Patient reports he does have medical history including emphysema. Patient stopped smoking cigarettes 2 to 3 weeks ago and has a 45-year history of cigarette smoking. Patient does report mild feverish sensation. Denies headache or dizziness. Patient does report mild increase in respiratory effort and cough with associated wheezing. Patient currently is taking 3 inhalers, Flovent, albuterol, Spiriva. Patient reports he has been compliant with these inhalers which have been helpful. Patient reports nasal congestion and mild sore throat. Denies ear pain. Denies abdominal pain, nausea, vomiting, bowel changes. Eating and drinking without difficulty. No other concerns or complaints at this time. Denies chest or back pain. Related Data Home Medications Medication Instructions Recorded Confirmed Flovent HFA 1 puff INHALATION BID 09/13/18 11/09/19 albuterol sulfate [Ventolin HFA] 2 dose INHALATION Q4H PRN PRN 09/13/18 11/09/19 bupropion HCl 300 mg PO DAILY 09/13/18 11/09/19 calcium carbonate [Calcium 500] 500 mg PO DAILY 09/13/18 11/09/19 famotidine 40 mg PO BID 09/13/18 11/09/19 ferrous sulfate 325 mg PO DAILY 09/13/18 11/09/19 finasteride 5 mg PO DAILY 09/13/18 11/09/19 fluticasone propionate [Flonase 1 spray INTRANASAL DAILY 09/13/18 11/09/19 Allergy Relief] gabapentin 300 mg PO BID 09/13/18 11/09/19 ipratropium bromide 2 dose INHALATION Q6H PRN PRN 09/13/18 11/09/19 lisinopril 40 mg PO DAILY 09/13/18 11/09/19 methadone 50 mg PO DAILY 09/13/18 11/09/19 methocarbamol 750 mg PO QID PRN 09/13/18 11/09/19 miconazole-skin 1 dose TOPICAL DAILY 09/13/18 11/09/19 [Miconazole-3 prefil,cream,wipe] omeprazole 20 mg PO DAILY #14 cap 05/20/19 11/09/19 furosemide [Lasix] 20 mg PO DAILY #1 tab 06/02/19 11/09/19 doxycycline hyclate 100 mg PO BID #14 cap 11/09/19 prednisone 20 mg PO DAILY #3 tab 11/09/19 Previous Rx's Medication Instructions Recorded omeprazole 20 mg PO DAILY #14 cap 05/20/19 furosemide [Lasix] 20 mg PO DAILY #1 tab 06/02/19 doxycycline hyclate 100 mg PO BID #14 cap 11/09/19 prednisone 20 mg PO DAILY #3 tab 11/09/19 Allergies Allergy/AdvReac Type Severity Reaction Status Date / Time Sulfa (Sulfonamide Allergy Unverified 11/09/19 10:20 Antibiotics) General Stated Complaint: RespSymp KENYETTA: 3 Review of Systems All systems reviewed & are unremarkable except as noted in HPI and below Constitutional Constitutional: Reports chills, Reports fever(s) and Denies headache(s) ENT Ears, Nose, Mouth, and Throat: Denies headache(s) Cardiovascular Cardiovascular: Denies chest pain Respiratory Respiratory: Reports change in phlegm color, Reports cough and Reports wheezing Gastrointestinal Gastrointestinal: Denies abdominal pain, Denies diarrhea, Denies nausea and Denies vomiting Neurologic Neurologic: Denies headache(s) Allergic/Immunologic Allergic/Immunologic: Reports wheezing [facility], [facility] Social History Smoking/Tobacco Use Status: Former Tobacco Use Quit Date: 04/05/19 Alcohol Intake: never Drug use: Never Substance use type: does not use Do you feel safe at home: Yes Do you feel safe in your relationship?: Yes Exam Narrative Exam Narrative: CONST: Healthy appearing patient, in no acute distress. Well hydrated. Alert and alert. HENMT: Head nomocephalic, normal to inspection. Atraumatic. Hearing grossly normal. TMs appear normal bilaterally. No bulging or erythema. Patient has mild pharyngeal erythema without exudate or tonsillar swelling. EYES: General normal appearance. Alignment normal. Eyelids normal. Conjunctiva normal. NECK: Normal visual inspection. FROM. Trachea midline. No Midline tenderness. No cervical lymphadenopathy present. CHEST: Normal insepection of the chest. RESP: Normal respiratory effort. Speaking full sentences. Productive cough. No audible wheezing. No retractions. Wheezing throughout all lung arevalo. Breath sounds equal bilaterally CARDIO: No JVD. Regular rate and rhythm, no murmur Course Vital Signs Vital signs: Vital Signs Temperature 36.1 C L 11/09/19 10:17 Pulse 87 11/09/19 10:17 Respiratory Rate 16 11/09/19 10:17 Blood Pressure 166/81 H 11/09/19 10:17 Pulse Oximetry 95 11/09/19 10:17 Temperature 36.1 C L 11/09/19 10:17 Temperature Source Skin 11/09/19 10:17 Pulse 87 11/09/19 10:17 Respiratory Rate 16 11/09/19 10:17 Respiratory Effort 11/09/19 10:23 Respiratory Depth Normal 11/09/19 10:23 Blood Pressure 166/81 H 11/09/19 10:17 Blood Pressure Position Sitting 12/09/19 10:17 Pulse Oximetry 95 11/09/19 10:17 Oxygen Delivery Method Room Air 11/09/19 10:17 Oxygen Flow Rate 0 11/09/19 10:17 Pain Level 0 11/09/19 10:17
[2019-11-09] MEDS: Albuterol/Ipratropium 3 ML UPD VIAL UPD (10:44)
--- NOTE | 2019-11-09 11:00 | DI.RAD_ITS ---
EXAM: XR CHEST 2V PA LATERAL INDICATION: cough. COMPARISON: XR CHEST 2V PA LATERAL from 05/20/2019 TECHNIQUE: 2D digital imaging was performed. FINDINGS: Heart size is normal. The aorta is mildly tortuous. There are mild underlying fibrotic changes. No superimposed infiltrate, effusion or pulmonary edema is seen. 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 Degenerative changes are seen in the thoracic spine. IMPRESSION: No acute abnormality.
== END 2019-11-09 12:06 | disposition home or self-care (01) ==
PROVIDERS: Emergency Provider Physician Assistant; PCP Student in an Organized Health Care Education/Training Program
DX: J06.9 Acute upper respiratory infection, unspecified (principal); J44.1 Chronic obstructive pulmonary disease with (acute) exacerbation; F17.201 Nicotine dependence, unspecified, in remission
CPT/HCPCS: 94640; 99284; 71046; J7620

== ENCOUNTER 2020-01-10 11:46 | Emergency (ER) | payer MEDICARE, SELFPAY ==
[2020-01-10] VITALS (35 sets, daily range): BP systolic 127–206; BP diastolic 68–156; PULSE 72–104; RESP 7–38; TEMP 36.3–37.1; O2SAT 93–99
--- NOTE | 2020-01-10 11:54 | W.ED.GENAD ---
Discharge Plan Disposition Patient Disposition: HOME Condition: Stable Discharge Details Chief Complaint: Abd Prob Clinical Impression: Abdominal pain, Opiate withdrawal, Nausea & vomiting, Hypertension Primary Care Provider: Pippa Madden ED Provider: Domonique Li Home Meds and New Rx's Prescriptions: New prochlorperazine maleate [Compazine] 10 mg tablet 10 mg PO TID PRN (Reason: nausea and vomiting) Qty: 7 RF: 0 Continued omeprazole 20 mg capsule,delayed release(DR/EC) 20 mg PO DAILY Qty: 14 RF: 0 calcium carbonate [Calcium 500] 500 mg calcium (1,250 mg) Tablet 500 mg PO DAILY RF: 0 methadone 5 mg Tablet 50 mg PO DAILY RF: 0 famotidine 40 mg Tablet 40 mg PO BID RF: 0 methocarbamol 750 mg Tablet 750 mg PO QID PRNRF: 0 ferrous sulfate 325 mg (65 mg iron) Tablet 325 mg PO DAILY RF: 0 gabapentin 300 mg Capsule 300 mg PO BID RF: 0 Flovent HFA 220 mcg/actuation Hfa Aerosol Inhaler 1 puff INHALATION BID RF: 0 albuterol sulfate [Ventolin HFA] 90 mcg/actuation Hfa Aerosol Inhaler 2 dose Inhalation Q4H PRN PRNRF: 0 fluticasone propionate [Flonase Allergy Relief] 50 mcg/actuation [place],Suspension 1 spray Intranasal DAILY RF: 0 finasteride 5 mg Tablet 5 mg PO DAILY RF: 0 bupropion HCl 300 mg Tablet Extended Release 24 Hr 300 mg PO DAILY RF: 0 ipratropium bromide 17 mcg/actuation Hfa Aerosol Inhaler 2 dose Inhalation Q6H PRN PRNRF: 0 miconazole-skin [Miconazole-3 prefil,cream,wipe] 4 % (200 mg)- 2 % (9 gram) Kit 1 dose Topical DAILY RF: 0 furosemide [Lasix] 20 mg tablet 20 mg PO DAILY Qty: 1 RF: 0 prednisone 20 mg tablet 20 mg PO DAILY Qty: 3 RF: 0 No Action prednisone 20 mg tablet See Rx Instructions .ROUTE .COMPLEX Qty: 12 RF: 0 amlodipine [Norvasc] 5 mg tablet 5 mg PO DAILY Qty: 14 RF: 0 Discharge Instructions Instructions: Acute Nausea and Vomiting (ED), Abdominal Pain (ED) Additional Instructions: Care management will follow-up with you tomorrow regarding your methadone dose tomorrow at [facility]. Follow-up with your primary care doctor within the next week for reevaluation as needed. Return to the emergency department if you develop any worsening or new concerning symptoms. 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 States his last dose of methadone was 1 week ago as he was unable to get transportation to the [facility] clinic in [place]. He states he had a normal bowel movement this morning. He states his abdominal pain is constant and sharp, worse in the periumbilical region. He has not eaten anything at the today. He denies any fever, diarrhea, urinary symptoms, chest pain or shortness of breath. He denies any history of abdominal surgeries. Patient appears uncomfortable. He is hypertensive. He is afebrile and appears nontoxic. His abdomen is soft and diffusely tender throughout. No rigidity or guarding. He has coarse breath sounds right chest. Differential diagnosis includes signs of opiate withdrawal, acute abdominal process such as cholelithiasis, cholecystitis, gastritis, gastroenteritis, UTI, small bowel obstruction. Will place an IV, bolus IV fluids, screening labs, urinalysis abdomen pelvis in addition to chest x-ray. Give patient a dose of Compazine and morphine and will reassess. 1415 --labs and imaging reviewed and unremarkable. Normal white blood cell count. Troponin and lipase negative. Urinalysis negative. UDS negative. Chest x-ray notes findings consistent of early congestive heart failure. Patient has no signs of respiratory distress. CT abdomen pelvis negative. He has Lasix on his medication list. Will give a dose of 20 mg p.o. He also did not take his lisinopril this morning we will give him his morning dose. 1500 --patient reassessed. He complained of some return of nausea and was given Reglan and was able to take p.o. with no further vomiting. Case discussed with care management who evaluated patient at bedside. They will arrange for patient to resume his methadone dosing tomorrow at [place]. Patient given his methadone dose here today. Prescription for Compazine given. Discussed with patient that it appears his symptoms could be due to opiate withdrawal. Advised to follow-up with his primary care doctor for reevaluation and to return here if worse. Medical Records Medical records reviewed: Yes I reviewed the patient's medical records. Imaging Data Radiologic Study: Radiologist's impression: XR Chest, 2 Views Exam date and time: 01/10/2020 1:17 PM Age: 64 years old Clinical indication: Other: Course breath sounds TECHNIQUE: Imaging protocol: XR of the chest Views: 2 views. COMPARISON: CR XR CHEST 2V PA LATERAL 11/09/2019 11:00 AM FINDINGS: Interval increase in prominence to the interstitial markings suggesting development of mild interstitial edema. No focal pulmonary consolidations. Borderline cardiomegaly unchanged. Prior right shoulder replacement. No significant pleural effusion. IMPRESSION: Findings suggesting early congestive heart failure with interstitial edema. CT Abdomen And Pelvis With Contrast Exam date and time: 01/10/2020 1:05 PM Age: 64 years old Clinical indication: Abdominal pain; Generalized TECHNIQUE: Imaging protocol: Computed tomography of the abdomen and pelvis with intravenous contrast. Contrast material: OMNIPAQUE; Contrast volume: 100 ml; Contrast route: RT AC; COMPARISON: No relevant prior studies available. FINDINGS: Mild interstitial scarring at the lung bases. Appendix is prominent however without definite wall thickening or surrounding inflammation. Diverticulosis without evidence of diverticulitis. No intestinal obstruction. No obstructive uropathy. No free fluid. No free air. No inflammatory changes. IMPRESSION: No specific etiology identified for the patient's symptoms. Lab Data Lab results reviewed: Yes I reviewed the patient's lab results. Labs: Laboratory Tests Range/Units 01/10/20 01/10/20 01/10/20 12:05 12:05 12:05 WBC (4.4-10.8) k/cumm 8.93 RBC (4.50-6.00) m/cumm 5.85 Hgb (13.5-17.5) g/dL 14.7 Hct (40.0-50.0) % 44.5 MCV (80-95) fL 76.1 L MCH (27.0-33.0) pg 25.1 L MCHC (32.0-36.0) g/dL 33.0 RDW (11.8-14.1) % 15.8 H Plt Count (130-400) x1000/uL 278 MPV (8.0-11.0) fL 9.3 Immature Gran % % 0.2 Neutrophils % 77.3 Lymphocytes % 16.9 Monocytes % 5.2 Eosinophils % 0.2 Basophils % 0.2 Absolute Neutrophils (1.2-6.7) k/cumm 6.90 H Absolute Lymphocytes (1.2-3.4) k/cumm 1.51 Absolute Monocytes (0.11-0.7) k/cumm 0.46 Absolute Eosinophils (0.0-0.7) k/cumm 0.02 Absolute Basophils (0.0-0.2) k/cumm 0.02 PT (9.3-11.0) sec 11.1 H INR (0.9-1.1) 1.1 APTT (21.0-31.4) sec 24.0 Sodium (136-145) mmol/L 136 Potassium (3.5-5.1) mmol/L 3.6 Chloride (98-107) mmol/L 99 Carbon Dioxide (21.0-32.0) mmol/L 25.8 Anion Gap (3-11) mmol/L 11.2 H BUN (7-18) mg/dL 4 L Creatinine (0.70-1.30) mg/dL 0.90 Estimated GFR/1.73 m2 (mL/min/1.73m2) >= 60.00 Glucose (74-106) mg/dL 149 H Calcium (8.5-10.1) mg/dL 8.8 Magnesium (1.8-2.4) mg/dL 1.7 L Total Bilirubin (0.2-1.0) mg/dL 0.6 AST (15-37) U/L 27 ALT (16-63) U/L 30 Alkaline Phosphatase (46-116) U/L 87 Troponin I (<0.06) ng/Ml < 0.05 Total Protein (6.4-8.2) g/dL 7.8 Albumin (3.4-5.0) g/dL 3.9 Lipase (73-393) U/L 61 Urine Color (Yellow) Urine Clarity (Clear) Urine pH (5-8) Ur Specific [place] (1.005-1.025) Urine Protein (Negative) mg/dL Urine Ketones (Negative) mg/dL Urine Blood (Negative) Urine Nitrite (Negative) Urine Bilirubin (Negative) Urine Urobilinogen (Up TO 0.2) EU/dL Ur Leukocyte Esterase (Negative) Urine RBC (0-2) HPF Urine WBC (0-5) HPF Ur Epithelial Cells (Negative) HPF Urine Crystals (Negative) HPF Urine Bacteria (Negative) HPF Urine Casts (Negative) LPF Urine Mucus (Negative) Urine Other (Negative) Ur Culture Indicated? Urine Glucose (Negative) mg/dL Urine Opiates Screen (Negative) Urine Methadone Screen (Negative) Ur Barbiturates Screen (Negative) Ur Tricyclics Screen (Negative) Ur Amphetamines Screen (Negative) U Benzodiazepines Scrn (Negative) Urine Cocaine Screen (Negative) Ur THC Screen (Negative) Range/Units 01/10/20 01/10/20 12:19 12:19 WBC (4.4-10.8) k/cumm RBC (4.50-6.00) m/cumm Hgb (13.5-17.5) g/dL Hct (40.0-50.0) % MCV (80-95) fL MCH (27.0-33.0) pg MCHC (32.0-36.0) g/dL RDW (11.8-14.1) % Plt Count (130-400) x1000/uL MPV (8.0-11.0) fL Immature Gran % % Neutrophils % Lymphocytes % Monocytes % Eosinophils % Basophils % Absolute Neutrophils (1.2-6.7) k/cumm Absolute Lymphocytes (1.2-3.4) k/cumm Absolute Monocytes (0.11-0.7) k/cumm Absolute Eosinophils (0.0-0.7) k/cumm Absolute Basophils (0.0-0.2) k/cumm PT (9.3-11.0) sec INR (0.9-1.1) APTT (21.0-31.4) sec Sodium (136-145) mmol/L Potassium (3.5-5.1) mmol/L Chloride (98-107) mmol/L Carbon Dioxide (21.0-32.0) mmol/L Anion Gap (3-11) mmol/L BUN (7-18) mg/dL Creatinine (0.70-1.30) mg/dL Estimated GFR/1.73 m2 (mL/min/1.73m2) Glucose (74-106) mg/dL Calcium (8.5-10.1) mg/dL Magnesium (1.8-2.4) mg/dL Total Bilirubin (0.2-1.0) mg/dL AST (15-37) U/L ALT (16-63) U/L Alkaline Phosphatase (46-116) U/L Troponin I (<0.06) ng/Ml Total Protein (6.4-8.2) g/dL Albumin (3.4-5.0) g/dL Lipase (73-393) U/L Urine Color (Yellow) Straw Urine Clarity (Clear) Clear Urine pH (5-8) 8.0 Ur Specific [place] (1.005-1.025) 1.020 Urine Protein (Negative) mg/dL Negative Urine Ketones (Negative) mg/dL Negative Urine Blood (Negative) Trace-intact H Urine Nitrite (Negative) Negative Urine Bilirubin (Negative) Negative Urine Urobilinogen (Up TO 0.2) EU/dL 0.2 Ur Leukocyte Esterase (Negative) Negative Urine RBC (0-2) HPF 0-2 Urine WBC (0-5) HPF 0-2 Ur Epithelial Cells (Negative) HPF Rare Urine Crystals (Negative) HPF Negative Urine Bacteria (Negative) HPF Rare Urine Casts (Negative) LPF Negative Urine Mucus (Negative) Negative Urine Other (Negative) Rare renal Ur Culture Indicated? No Urine Glucose (Negative) mg/dL Negative Urine Opiates Screen (Negative) Negative Urine Methadone Screen (Negative) Negative Ur Barbiturates Screen (Negative) Negative Ur Tricyclics Screen (Negative) Negative Ur Amphetamines Screen (Negative) Negative U Benzodiazepines Scrn (Negative) Negative Urine Cocaine Screen (Negative) Negative Ur THC Screen (Negative) Negative ECG Data Attestation: I personally reviewed and interpreted this ECG (s) as follows: Interpretation: Rate of 81, sinus, T wave inversion in V2, seen in previous EKG. No acute ST elevation or depression. VA 172. QTc 490. QRS 98. HPI General Mode of arrival: EMS. Date/Time Provider Initiated Documentation: 01/10/20 11:53. Limitations to Documentation: no limitations. Information obtained by: patient. History of Present Illness 64 year old M presents to the emergency department with the chief complaint of abdominal pain and vomiting, and is localized to the abdomen. Patient reports no radiation. Patient started experiencing this hour(s) (since this morning) and it has been constant. No relieving factors improve symptom(s), No exacerbating factors reported . Patient notes nausea/vomiting; denies chest pain, fever/chills, loss of appetite, malaise and shortness of breath. Patient did receive the following treatments prior to arrival, other (zofran given per ems w/ some relief) Related Data Home Medications Medication Instructions Recorded Confirmed Flovent HFA 1 puff INHALATION BID 09/13/18 01/11/20 albuterol sulfate [Ventolin HFA] 2 dose INHALATION Q4H PRN PRN 09/13/18 01/11/20 bupropion HCl 300 mg PO DAILY 09/13/18 01/10/20 calcium carbonate [Calcium 500] 500 mg PO DAILY 09/13/18 01/11/20 famotidine 40 mg PO BID 09/13/18 01/11/20 ferrous sulfate 325 mg PO DAILY 09/13/18 01/11/20 finasteride 5 mg PO DAILY 09/13/18 01/11/20 fluticasone propionate [Flonase 1 spray INTRANASAL DAILY 09/13/18 01/11/20 Allergy Relief] gabapentin 300 mg PO BID 09/13/18 01/11/20 ipratropium bromide 2 dose INHALATION Q6H PRN PRN 09/13/18 01/11/20 methadone 50 mg PO DAILY 09/13/18 01/11/20 methocarbamol 750 mg PO QID PRN 09/13/18 01/11/20 miconazole-skin 1 dose TOPICAL DAILY 09/13/18 01/11/20 [Miconazole-3 prefil,cream,wipe] omeprazole 20 mg PO DAILY #14 cap 05/20/19 01/11/20 furosemide [Lasix] 20 mg PO DAILY #1 tab 06/02/19 01/11/20 prednisone 20 mg PO DAILY #3 tab 11/09/19 01/11/20 prochlorperazine maleate 10 mg PO TID PRN #7 tab 01/10/20 01/11/20 [Compazine] amlodipine [Norvasc] 5 mg PO DAILY #14 tab 01/11/20 prednisone See Rx Instructions .ROUTE 01/11/20 .COMPLEX #12 tab Previous Rx's Medication Instructions Recorded omeprazole 20 mg PO DAILY #14 cap 05/20/19 furosemide [Lasix] 20 mg PO DAILY #1 tab 06/02/19 prednisone 20 mg PO DAILY #3 tab 11/09/19 prochlorperazine maleate 10 mg PO TID PRN #7 tab 01/10/20 [Compazine] amlodipine [Norvasc] 5 mg PO DAILY #14 tab 01/11/20 prednisone See Rx Instructions .ROUTE 01/11/20 .COMPLEX #12 tab Allergies Allergy/AdvReac Type Severity Reaction Status Date / Time Sulfa (Sulfonamide Allergy Unverified 01/11/20 15:37 Antibiotics) General Stated Complaint: Abd Prob KENYETTA: 2 Review of Systems All systems reviewed & are unremarkable except as noted in HPI and below Constitutional Constitutional: Reports as per HPI, Denies chills and Denies fever(s) Eyes Eyes: Denies blurry vision ENT Ears, Nose, Mouth, and Throat: Denies dizziness, Denies sore throat and Denies throat swelling Cardiovascular Cardiovascular: Denies chest pain and Denies dyspnea Respiratory Respiratory: Denies cough and Denies dyspnea Gastrointestinal Gastrointestinal: Reports abdominal pain, Denies diarrhea and Reports vomiting Genitourinary Genitourinary: Denies hematuria and Denies dysuria Musculoskeletal Musculoskeletal: Denies back pain and Denies numbness Integumentary/Breasts Skin/Breast: Denies lesions and Denies rash Neurologic Neurologic: Denies dizziness, Denies focal weakness and Denies numbness Allergic/Immunologic Allergic/Immunologic: Denies throat swelling [facility] Social History (Updated 01/10/20 @ 12:14 by Domonique Li DO) Smoking/Tobacco Use Status: Current every day Tobacco Type: cigarettes Years smoked: 45 Alcohol Intake: never Drug use: Current Sobriety Substance use type: does not use Do you feel safe at home: Yes Do you feel safe in your relationship?: Yes Exam Const General: cooperative and no acute distress Orientation: alert, awake and oriented x3 HENMT Head: normal to inspection Face and sinus: normal facial exam Eyes General: appearance normal, both eyes and all related structures EOM: EOM intact bilaterally Neck Neck: normal visual inspection and No submandibular swelling Lymphatic: no lymphadenopathy noted Chest Chest: normal inspection of the chest and no tenderness Resp Effort & Inspection: normal respiratory effort and able to speak in complete sentences Auscultation: other (Coarse breath sounds right chest) Cardio Rate: regular rate Rhythm: regular rhythm GI Inspection: normal to inspection Palpation: soft, not firm, not rigid and tender (Diffusely tender throughout) Auscultation: hypoactive bowel sounds Skin General skin exam: no rashes or lesions noted Neuro General: alert, awake and oriented x3 Cognition: normal cognition Speech: speech normal Motor: muscle tone normal throughout Sensory Exam: no sensory deficits noted Extrem General: normal to inspection, full ROM, normal capillary refill, no calf tenderness bilaterally and no edema Psych Appearance: grossly normal Mental Status: mental status grossly normal Speech and Movement: speech and movement normal Affect: normal affect Course Vital Signs Vital signs: Vital Signs Temperature 98.1 F 01/10/20 11:47 Pulse 82 01/10/20 11:47 Respiratory Rate 18 01/10/20 11:47 Blood Pressure 177/78 H 01/10/20 11:47 Pulse Oximetry 94 L 01/10/20 11:47 Temperature 98.1 F 01/10/20 11:47 Temperature Source Temporal Artery Scan 01/10/20 11:47 Pulse 82 01/10/20 11:47 Respiratory Rate 18 01/10/20 11:47 Respiratory Effort Non-Labored 01/10/20 11:50 Blood Pressure 177/78 H 01/10/20 11:47 Blood Pressure Position Supine 01/10/20 11:47 Pulse Oximetry 94 L 01/10/20 11:47 Oxygen Delivery Method Room Air 01/10/20 11:47 Oxygen Flow Rate 0 01/10/20 11:47 Pain Level 10 01/10/20 11:47
[2020-01-10] MEDS: Normal Saline 1,000 ML 1000 ML IV (12:20)
[2020-01-10 12:23] LABS: Abs Immature Grans 0.02 k/cumm (0.0-0.09); Absolute Basophil Count 0.02 k/cumm (0.0-0.2); Absolute Eosinophil Count 0.02 k/cumm (0.0-0.7); Absolute Lymphocyte Count 1.51 k/cumm (1.2-3.4); Absolute Monocyte Count 0.46 k/cumm (0.11-0.7); Basophils % 0.2; Eosinophils % 0.2; HCT 44.5 % (40.0-50.0); HGB 14.7 g/dL (13.5-17.5); Immature Grans % 0.2 %; Lymphocytes % 16.9; Mean Corpuscular Hemoglobin 25.1 pg (27.0-33.0); Mean Corpuscular Volume 76.1 fL (80-95); Mean Platelet Volume 9.3 fL (8.0-11.0); Monocytes % 5.2; Neutrophils % 77.3; Platelet Count 278 x1000/uL (130-400); RBC 5.85 m/cumm (4.50-6.00); RBC Distribution Width 15.8 % (11.8-14.1); White Blood Cell Count 8.93 k/cumm (4.4-10.8)
[2020-01-10] MEDS: Normal Saline 50 ML 400 ML (12:30)
[2020-01-10] MEDS: Prochlorperazine 10 MG/2 ML VIAL IVP (12:30)
[2020-01-10 12:34] LABS: Bilirubin Negative (Negative); Blood Trace-intact (Negative); Clarity Clear (Clear); Glucose Negative (Negative); Ketones Negative (Negative); Leukocyte Esterase Negative (Negative); Nitrite Negative (Negative); Urobilinogen 0.2 EU/dL (Up TO 0.2)
[2020-01-10 12:37] LABS: INR 1.1 (0.9-1.1); Prothrombin Time 11.1 sec (9.3-11.0)
[2020-01-10 12:44] LABS: ALT 30 U/L (16-63); AST 27 U/L (15-37); Albumin 3.9 g/dL (3.4-5.0); Alkaline Phosphatase 87 U/L (46-116); Anion Gap 11.2 mmol/L (3-11); BUN 4 mg/dL (7-18); Bilirubin, Total 0.6 mg/dL (0.2-1.0); CO2 25.8 mmol/L (21.0-32.0); Calcium 8.8 mg/dL (8.5-10.1); Chloride 99 mmol/L (98-107); Glucose 149 mg/dL (74-106); Lipase 61 U/L (73-393); Magnesium 1.7 mg/dL (1.8-2.4); Potassium 3.6 mmol/L (3.5-5.1); Sodium 136 mmol/L (136-145); Total Protein 7.8 g/dL (6.4-8.2); Troponin I < 0.05 ng/Ml (<0.06)
[2020-01-10 12:46] LABS: *AMPHETAMINES SCREEN URINE Negative (Negative); *BARBITURATES SCREEN URINE Negative (Negative); *BENZODIAZEPINES SCREEN URINE Negative (Negative); Cannabinoids THC Negative (Negative); Cocaine Screen,Urine Negative (Negative); METHADONE URINE SCREEN Negative (Negative); OPIATES URINE SCREEN Negative (Negative)
[2020-01-10 12:49] LABS: Bacteria Rare HPF (Negative); C & S Indicated? No; Casts Negative LPF (Negative); Crystals Negative HPF (Negative); Epithelial Cells Rare HPF (Negative); Mucus Negative (Negative); Other Cells Rare Renal (Negative); RBC 0-2 HPF (0-2); WBC 0-2 HPF (0-5)
[2020-01-10 12:51] LABS: Tricyclic Antidepressants Negative (Negative)
--- NOTE | 2020-01-10 13:08 | DI.CT_ITS ---
EXAM: CT ABDOMEN PELVIS W CLINICAL HISTORY: diffuse abdominal pain, vomiting TECHNIQUE: Post IV contrast. Without oral contrast. The evaluation of the lung bases is limited du e to respiratory motion. There is also some motion in the midportion of the scan. COMPARISON: XR CHEST 2V PA LATERAL from 11/09/2019 XR CHEST 2V PA LATERAL from 01/10/2020 FINDINGS: The lung bases show interstitial changes. No definite superimposed infiltrates or effusions are see n. The left ventricle appears mildly enlarged. The liver shows moderate fatty infiltration. There is no biliary dilatation. The gallbladder, spleen and adrenals are unremarkable. There is a right r enal cyst. There is no evidence of hydronephrosis. Aorta is normal in diameter. There is sigmoid d iverticulosis. There is no evidence of diverticulitis. There is no small bowel dilatation. There i s no inflammation around the appendix. The prostate is mildly enlarged. The bladder is unremarkable . Prominent endplate osteophytes as well as facet degenerative changes noted. IMPRESSION: No acute abnormality. Incidental and chronic findings as mentioned above.
--- NOTE | 2020-01-10 13:17 | DI.RAD_ITS ---
EXAM: XR CHEST 2V PA LATERAL INDICATION: coarse R breath sounds, r/o acute disease. COMPARISON: No exams were available for comparison TECHNIQUE: 2D digital imaging was performed. FINDINGS: Heart size is normal. The aorta is tortuous. There are increasing vascular prominence and increased interstitial markings consistent with mild CHF. No focal infiltrate or effusion is seen. Left apic al scarring is again noted. 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 IMPRESSION: Findings consistent with mild CHF.
[2020-01-10] MEDS: Omnipaque 350 MG/ML 100 ML BTL IJ (13:20)
--- NOTE | 2020-01-10 14:18 | DI.VRAD_ITS ---
PROCEDURE INFORMATION: Exam: XR Chest, 2 Views Exam date and time: 01/10/2020 1:17 PM Age: 64 years old Clinical indication: Other: Course breath sounds TECHNIQUE: Imaging protocol: XR of the chest Views: 2 views. COMPARISON: CR XR CHEST 2V PA LATERAL 11/09/2019 11:00 AM FINDINGS: Interval increase in prominence to the interstitial markings suggesting development of mild interstitial edema. No focal pulmonary consolidations. Borderline cardiomegaly unchanged. Prior right shoulder replacement. No significant pleural effusion. IMPRESSION: Findings suggesting early congestive heart failure with interstitial edema. Dictated and Authenticated by: Shaun Zaldivar MD. Ordering:EDEL Youssef MD
--- NOTE | 2020-01-10 14:20 | DI.VRAD_ITS ---
PROCEDURE INFORMATION: Exam: CT Abdomen And Pelvis With Contrast Exam date and time: 01/10/2020 1:05 PM Age: 64 years old Clinical indication: Abdominal pain; Generalized TECHNIQUE: Imaging protocol: Computed tomography of the abdomen and pelvis with intravenous contrast. Contrast material: OMNIPAQUE; Contrast volume: 100 ml; Contrast route: RT AC; COMPARISON: No relevant prior studies available. FINDINGS: Mild interstitial scarring at the lung bases. Appendix is prominent however without definite wall thickening or surrounding inflammation. Diverticulosis without evidence of diverticulitis. No intestinal obstruction. No obstructive uropathy. No free fluid. No free air. No inflammatory changes. IMPRESSION: No specific etiology identified for the patient's symptoms. Dictated and Authenticated by: Shaun Zaldivar MD. Ordering:EDEL Youssef MD
[2020-01-10] MEDS: Furosemide 20 MG TAB PO (14:31)
[2020-01-10] MEDS: Lisinopril 10 MG TAB 40 MG PO (14:35)
[2020-01-10] MEDS: Methadone Liquid 10 MG/ML 60 MG PO (15:08)
[2020-01-10] MEDS: Metoclopramide 10 MG/2 ML VIAL IVP (15:34)
[2020-01-10] MEDS: Normal Saline Flush 10 ML SYR IVP (15:34)
== END 2020-01-10 16:03 | disposition home or self-care (01) ==
PROVIDERS: Emergency Provider Physician Assistant; PCP Student in an Organized Health Care Education/Training Program
DX: R10.33 Periumbilical pain (principal); R11.2 Nausea with vomiting, unspecified; I10 Essential (primary) hypertension; F11.23 Opioid dependence with withdrawal; Z91.138 Patient's unintentional underdosing of medication regimen for other reason
CPT/HCPCS: 36415; 80053; 80307; 83690; 93005; 96361; 96374; 96375; 99285; 71046; 74177; 81003; 81015; 83735; 84484; 85025; 85610; 85730; 93010; J0780; J2765; J3490

== ENCOUNTER 2020-01-11 15:21 | Emergency (ER) | payer MEDICARE, SELFPAY ==
[2020-01-11] VITALS (52 sets, daily range): BP systolic 142–179; BP diastolic 81–112; PULSE 72–93; RESP 15–26; TEMP 36.6–36.7; O2SAT 92–100
--- NOTE | 2020-01-11 16:01 | ED.GENADUL_ITS ---
Discharge Plan Disposition Patient Disposition: HOME Condition: Improving Discharge Details Chief Complaint: Allergic Clinical Impression: Angioedema Primary Care Provider: Pippa Madden ED Provider: Domonique Li Home Meds and New Rx's Prescriptions: New amlodipine [Norvasc] 5 mg tablet 5 mg PO DAILY Qty: 14 RF: 0 Continued omeprazole 20 mg capsule,delayed release(DR/EC) 20 mg PO DAILY Qty: 14 RF: 0 prochlorperazine maleate [Compazine] 10 mg tablet 10 mg PO TID PRN (Reason: nausea and vomiting) Qty: 7 RF: 0 calcium carbonate [Calcium 500] 500 mg calcium (1,250 mg) Tablet 500 mg PO DAILY RF: 0 methadone 5 mg Tablet 60 mg PO DAILY RF: 0 famotidine 40 mg Tablet 40 mg PO BID RF: 0 methocarbamol 750 mg Tablet 750 mg PO QID PRNRF: 0 ferrous sulfate 325 mg (65 mg iron) Tablet 325 mg PO DAILY RF: 0 gabapentin 300 mg Capsule 300 mg PO BID RF: 0 Flovent HFA 220 mcg/actuation Hfa Aerosol Inhaler 1 puff INHALATION BID RF: 0 albuterol sulfate [Ventolin HFA] 90 mcg/actuation Hfa Aerosol Inhaler 2 dose Inhalation Q4H PRN PRNRF: 0 fluticasone propionate [Flonase Allergy Relief] 50 mcg/actuation [place],Suspension 1 spray Intranasal DAILY RF: 0 finasteride 5 mg Tablet 5 mg PO DAILY RF: 0 bupropion HCl 300 mg Tablet Extended Release 24 Hr 300 mg PO DAILY RF: 0 ipratropium bromide 17 mcg/actuation Hfa Aerosol Inhaler 2 dose Inhalation Q6H PRN PRNRF: 0 miconazole-skin [Miconazole-3 prefil,cream,wipe] 4 % (200 mg)- 2 % (9 gram) Kit 1 dose Topical DAILY RF: 0 furosemide [Lasix] 20 mg tablet 20 mg PO DAILY Qty: 1 RF: 0 Discontinued lisinopril 40 mg Tablet 40 mg PO DAILY RF: 0 Discharge Instructions Instructions: Angioedema (ED) Additional Instructions: Stop taking your lisinopril. I have started you on a new blood pressure medication called Norvasc. You should discuss with your primary care doctor continued further management of your blood pressure and whether Norvasc is a good option for you. Take your next steroid dose tomorrow. Take Benadryl as needed and directed for itching. You should consider following up at the [facility] in [facility] for your methadone dose tomorrow if you are unable to obtain transportation to the [facility] in [place]. You can call care management for any further information or assistance with methadone dosing. Follow-up with certified alcohol drug counselor on aging as we discussed. Follow-up with your primary care doctor in the next few days. Return to the emergency department with any worsening or new concerning symptoms. Discharge Data Discharge Date/Time-TO BE ENTERED AT DEPARTURE: 01/11/20 20:45 Discharge Physician: Domonique Li Medical Decision Making 1530 -- 64-year-old male with a history of diabetes and hypertension on lisinopril presents with upper lip swelling since 830 this morning. Patient denies any tongue swelling, throat itching or swelling, nausea or vomiting or difficulty breathing. Patient was seen here yesterday for abdominal pain thought to be due to opiate withdrawal. He was given a dose of lisinopril yesterday for his hypertension. He has taken lisinopril for many years. He denies any previous history of blood swelling. He denies any other new exposures or meds. BP hypertensive. He states he did take his lisinopril this morning. No signs of respiratory distress. Patient is speaking in full sentences. He has significant upper lip swelling. No evidence of tongue or throat swelling. Lungs clear. Normal oxygen saturation. Consistent with angioedema. Will place an IV, bolus IV fluids, Solu-Medrol, Benadryl, FFP and TXA. Discussed with patient the possibility of admission and he would rather go home if possible. 1700 --lip swelling slightly improved. Patient denies any new symptoms. Advised that I recommend continued monitoring over the next few hours or even admission. Patient again is declining admission. 1999 --lip swelling significantly improved. Patient is requesting to go home. I advised patient that we watch a little while longer as there is still some minimal lip swelling. He states he would prefer to go home at this time. Risks of and disability due to possible worsening airway edema explained which patient understands and would still like to leave. He has not developed any tongue swelling, throat swelling or difficulty breathing at any time. Patient was advised to stop his lisinopril. He was given a prescription for Norvasc as well as a dose here. He was given a prescription for prednisone. He was also given a dose of his methadone here. His methadone dosing was discussed at length with care management yesterday and I was advised today that patient can no longer receive RCT to the [facility] in [place] as they will not pay for it. Patient states he will try to go to the [facility] in [place] as he lives here, but states he had a bad experience there 5 years ago. Discussed that this may be a good option for him now. It was also discussed that he is planning to speak with wrangell on aging regarding this. He is advised to call his primary care doctor tomorrow and to return here with any concerns. Medical Records Medical records reviewed: Yes I reviewed the patient's medical records. Lab Data Lab results reviewed: Yes I reviewed the patient's lab results. Labs: Laboratory Tests Range/Units 01/11/20 01/11/20 01/11/20 16:00 16:00 16:00 WBC (4.4-10.8) k/cumm 9.76 RBC (4.50-6.00) m/cumm 6.06 H Hgb (13.5-17.5) g/dL 14.9 Hct (40.0-50.0) % 45.9 MCV (80-95) fL 75.7 L MCH (27.0-33.0) pg 24.6 L MCHC (32.0-36.0) g/dL 32.5 RDW (11.8-14.1) % 16.0 H Plt Count (130-400) x1000/uL 295 MPV (8.0-11.0) fL 9.3 Immature Gran % % 0.1 Neutrophils % 51.0 Lymphocytes % 36.6 Monocytes % 11.1 Eosinophils % 0.9 Basophils % 0.3 Absolute Neutrophils (1.2-6.7) k/cumm 4.98 Absolute Lymphocytes (1.2-3.4) k/cumm 3.57 H Absolute Monocytes (0.11-0.7) k/cumm 1.08 H Absolute Eosinophils (0.0-0.7) k/cumm 0.09 Absolute Basophils (0.0-0.2) k/cumm 0.03 Sodium (136-145) mmol/L 137 Potassium (3.5-5.1) mmol/L 3.0 L Chloride (98-107) mmol/L 101 Carbon Dioxide (21.0-32.0) mmol/L 25.6 Anion Gap (3-11) mmol/L 10.4 BUN (7-18) mg/dL 16 D Creatinine (0.70-1.30) mg/dL 1.23 Estimated GFR/1.73 m2 (mL/min/1.73m2) 58.87 Glucose (74-106) mg/dL 129 H Calcium (8.5-10.1) mg/dL 8.6 Magnesium (1.8-2.4) mg/dL 2.0 Total Bilirubin (0.2-1.0) mg/dL 0.5 AST (15-37) U/L 25 ALT (16-63) U/L 32 Alkaline Phosphatase (46-116) U/L 81 Troponin I (<0.06) ng/Ml < 0.05 Total Protein (6.4-8.2) g/dL 7.6 Albumin (3.4-5.0) g/dL 3.9 Patient ABO/Rh A Positive ECG Data Attestation: I personally reviewed and interpreted this ECG (s) as follows: Interpretation: rate of 81, sinus, no acute ST elevation or depression. T wave inversion in V2 which is seen in previous EKG. MD 172. QTc 490. QRS 98. HPI General Mode of arrival: ambulatory . Date/Time Provider Initiated Documentation: 01/11/20 15:30 . Limitations to Documentation: no limitations . Information obtained by: patient . History of Present Illness 64 year old M presents to the emergency department with the chief complaint of upper lip swelling, Patient started experiencing this hour(s) (7) and it has been other (worse). No relieving factors improve symptom(s), No exacerbating factors reported . Patient notes no other symptoms.. Patient did receive the following treatments prior to arrival, none Related Data Home Medications Medication Instructions Recorded Confirmed Flovent HFA 1 puff INHALATION BID 09/13/18 01/12/20 albuterol sulfate [Ventolin HFA] 2 dose INHALATION Q4H PRN PRN 09/13/18 01/12/20 bupropion HCl 300 mg PO DAILY 09/13/18 01/12/20 calcium carbonate [Calcium 500] 500 mg PO DAILY 09/13/18 01/12/20 famotidine 40 mg PO BID 09/13/18 01/12/20 ferrous sulfate 325 mg PO DAILY 09/13/18 01/12/20 finasteride 5 mg PO DAILY 09/13/18 01/12/20 fluticasone propionate [Flonase 1 spray INTRANASAL DAILY 09/13/18 01/12/20 Allergy Relief] gabapentin 300 mg PO BID 09/13/18 01/12/20 ipratropium bromide 2 dose INHALATION Q6H PRN PRN 09/13/18 01/12/20 methadone 60 mg PO DAILY 09/13/18 01/12/20 methocarbamol 750 mg PO QID PRN 09/13/18 01/12/20 miconazole-skin 1 dose TOPICAL DAILY 09/13/18 01/12/20 [Miconazole-3 prefil,cream,wipe] omeprazole 20 mg PO DAILY #14 cap 05/20/19 01/12/20 furosemide [Lasix] 20 mg PO DAILY #1 tab 06/02/19 01/12/20 prochlorperazine maleate 10 mg PO TID PRN #7 tab 01/10/20 01/12/20 [Compazine] amlodipine [Norvasc] 5 mg PO DAILY #14 tab 01/11/20 01/12/20 Previous Rx's Medication Instructions Recorded omeprazole 20 mg PO DAILY #14 cap 05/20/19 furosemide [Lasix] 20 mg PO DAILY #1 tab 06/02/19 prochlorperazine maleate 10 mg PO TID PRN #7 tab 01/10/20 [Compazine] amlodipine [Norvasc] 5 mg PO DAILY #14 tab 01/11/20 Allergies Allergy/AdvReac Type Severity Reaction Status Date / Time Sulfa (Sulfonamide Allergy Unverified 01/12/20 15:21 Antibiotics) General Stated Complaint: Allergic KENYETTA: 3 Review of Systems All systems reviewed & are unremarkable except as noted in HPI and below Constitutional Constitutional: Reports as per HPI, Denies chills and Denies fever(s) Eyes Eyes: Denies blurry vision ENT Ears, Nose, Mouth, and Throat: Denies dizziness, Reports lip swelling (upper), Denies sore throat and Denies throat swelling Cardiovascular Cardiovascular: Denies chest pain and Denies dyspnea Respiratory Respiratory: Denies cough and Denies dyspnea Gastrointestinal Gastrointestinal: Denies abdominal pain, Denies diarrhea and Denies vomiting Genitourinary Genitourinary: Denies hematuria and Denies dysuria Musculoskeletal Musculoskeletal: Denies back pain and Denies numbness Integumentary/Breasts Skin/Breast: Denies lesions and Denies rash Neurologic Neurologic: Denies dizziness, Denies focal weakness and Denies numbness Allergic/Immunologic Allergic/Immunologic: Reports lip swelling (upper) and Denies throat swelling [facility] Medical History Diabetes (Chronic) HTN (hypertension) (Chronic) Narcotic abuse in remission (Acute) Social History Smoking/Tobacco Use Status: Current every day Tobacco Type: cigarettes Years smoked: 45 Alcohol Intake: never Drug use: Current Sobriety Substance use type: does not use Do you feel safe at home: Yes Do you feel safe in your relationship?: Yes Exam Const General: cooperative and no acute distress Orientation: alert, awake and oriented x3 HENMT Head: normal to inspection Mouth: other (Significant upper lip swelling, no tongue swelling noted) Throat: uvula midline Eyes General: appearance normal, both eyes and all related structures EOM: EOM intact bilaterally Neck Neck: normal visual inspection and No submandibular swelling Lymphatic: no lymphadenopathy noted Chest Chest: normal inspection of the chest and no tenderness Resp Effort & Inspection: normal respiratory effort and able to speak in complete sentences Auscultation: clear to auscultation bilaterally Cardio Rate: regular rate Rhythm: regular rhythm GI Inspection: normal to inspection Palpation: soft, not firm, not rigid and nontender Auscultation: normal bowel sounds Skin General skin exam: no rashes or lesions noted Neuro General: alert, awake and oriented x3 Cognition: normal cognition Speech: speech normal Motor: muscle tone normal throughout Sensory Exam: no sensory deficits noted Extrem General: normal to inspection, full ROM, normal capillary refill, no calf tenderness bilaterally and no edema Psych Appearance: grossly normal Mental Status: mental status grossly normal Speech and Movement: speech and movement normal Affect: normal affect Course Vital Signs Vital signs: Vital Signs Pulse 92 H 01/11/20 15:33 Respiratory Rate 18 01/11/20 15:33 Blood Pressure 156/92 H 01/11/20 15:33 Pulse Oximetry 98 01/11/20 15:33 Pulse 92 H 01/11/20 15:33 Respiratory Rate 18 01/11/20 15:33 Respiratory Effort Non-Labored 01/11/20 15:44 Blood Pressure 156/92 H 01/11/20 15:33 Blood Pressure Position Sitting 01/11/20 15:33 Pulse Oximetry 98 01/11/20 15:33 Oxygen Delivery Method Room Air 01/11/20 15:33 Oxygen Flow Rate 0 01/11/20 15:33 Pain Level 0 01/11/20 15:33
[2020-01-11] MEDS: Normal Saline 500 ML IV (16:02)
[2020-01-11] MEDS: diphenhydrAMINE 50 MG/ML VIAL 25 MG IVP (16:03)
[2020-01-11] MEDS: methylPREDNISolone SUCC 125 MG VIAL IVP (16:04)
[2020-01-11 16:13] LABS: Abs Immature Grans 0.01 k/cumm (0.0-0.09); Absolute Basophil Count 0.03 k/cumm (0.0-0.2); Absolute Eosinophil Count 0.09 k/cumm (0.0-0.7); Absolute Lymphocyte Count 3.57 k/cumm (1.2-3.4); Absolute Monocyte Count 1.08 k/cumm (0.11-0.7); Absolute Neutrophil Count 4.98 k/cumm (1.2-6.7); Basophils % 0.3; Eosinophils % 0.9; HCT 45.9 % (40.0-50.0); HGB 14.9 g/dL (13.5-17.5); Immature Grans % 0.1 %; Lymphocytes % 36.6; Mean Corp. HGB Concentration 32.5 g/dL (32.0-36.0); Mean Corpuscular Hemoglobin 24.6 pg (27.0-33.0); Mean Corpuscular Volume 75.7 fL (80-95); Mean Platelet Volume 9.3 fL (8.0-11.0); Monocytes % 11.1; Platelet Count 295 x1000/uL (130-400); RBC 6.06 m/cumm (4.50-6.00); White Blood Cell Count 9.76 k/cumm (4.4-10.8)
[2020-01-11 16:27] LABS: ALT 32 U/L (16-63); AST 25 U/L (15-37); Albumin 3.9 g/dL (3.4-5.0); Alkaline Phosphatase 81 U/L (46-116); Anion Gap 10.4 mmol/L (3-11); BUN 16 mg/dL (7-18); Bilirubin, Total 0.5 mg/dL (0.2-1.0); CO2 25.6 mmol/L (21.0-32.0); CREATININE 1.23 mg/dL (0.70-1.30); Calcium 8.6 mg/dL (8.5-10.1); Chloride 101 mmol/L (98-107); Estimated GFR 58.87 (mL/min/1.73m2); Glucose 129 mg/dL (74-106); Sodium 137 mmol/L (136-145); Total Protein 7.6 g/dL (6.4-8.2); Troponin I < 0.05 ng/Ml (<0.06)
[2020-01-11] MEDS: Potassium Chloride 20 MEQ TABCR 40 MEQ PO (19:08)
[2020-01-11] MEDS: amLODIPine 5 MG TAB PO (20:36)
[2020-01-11] MEDS: Methadone 10 MG TAB 60 MG PO (20:37)
--- NOTE | 2020-01-12 13:55 | PDOC.ERCMACT ---
- If Service Date Differs Date of service: 01/11/20 Time of Service: 13:56 Care Management Activity Note Jonathan reportedly spoke with on-call CM yesterday. He calls again today to inquire as to the status of rides to the [facility]. CM contacts Guero Michael, Jonathan's rn case manager at [facility], to ask if they are able to continue to provide him with transportation from [facility] to [place] on a daily basis. Guero advises that Jonathan has already been told that the rides to [place] were ending on January 01, 2020, because the [facility] could no longer afford the cost of those daily trips to [place]. According to Guero, Jonathan has been encouraged to transfer from the [facility] to the one in [facility] but he has been resistant to the idea. then calls Jonathan to relay the conversation with Guero and to offer assistance in getting him connected with the [facility]. Jonathan is unable to comprehend why he cannot continue going to [place], becomes upset on the telephone, and accuses everyone of discriminating against him. Jonathan states he has gone to the [facility] in the past and was treated disrespectfully, so he is refusing to return to that clinic.
== END 2020-01-11 20:45 | disposition home or self-care (01) ==
PROVIDERS: Emergency Provider Physician Assistant; PCP Student in an Organized Health Care Education/Training Program
DX: T78.3XXA Angioneurotic edema, initial encounter (principal); T46.4X5A Adverse effect of angiotensin-converting-enzyme inhibitors, initial encounter; I10 Essential (primary) hypertension; E11.9 Type 2 diabetes mellitus without complications
CPT/HCPCS: 36415; 36430; 80053; 86900; 86901; 96361; 96365; 96375; 99285; 83735; 84484; 85025; J1200; J2930; P9059

== ENCOUNTER 2020-01-12 15:14 | Emergency (ER) | payer MEDICARE, SELFPAY ==
[2020-01-12 15:19] VITALS: BP 184/96; PULSE 76; RESP 16; TEMP 36.8; O2SAT 97
--- NOTE | 2020-01-12 15:34 | W.ED.GENAD ---
Discharge Plan Disposition Patient Disposition: HOME Discharge Details Chief Complaint: GenMedical Clinical Impression: Methadone use, Elevated blood pressure reading, Noncompliance with medications Primary Care Provider: Pippa Madden ED Provider: Joe Robbins Home Meds and New Rx's Prescriptions: Continued omeprazole 20 mg capsule,delayed release(DR/EC) 20 mg PO DAILY Qty: 14 RF: 0 prochlorperazine maleate [Compazine] 10 mg tablet 10 mg PO TID PRN (Reason: nausea and vomiting) Qty: 7 RF: 0 amlodipine [Norvasc] 5 mg tablet 5 mg PO DAILY Qty: 14 RF: 0 calcium carbonate [Calcium 500] 500 mg calcium (1,250 mg) Tablet 500 mg PO DAILY RF: 0 methadone 5 mg Tablet 60 mg PO DAILY RF: 0 famotidine 40 mg Tablet 40 mg PO BID RF: 0 methocarbamol 750 mg Tablet 750 mg PO QID PRNRF: 0 ferrous sulfate 325 mg (65 mg iron) Tablet 325 mg PO DAILY RF: 0 gabapentin 300 mg Capsule 300 mg PO BID RF: 0 Flovent HFA 220 mcg/actuation Hfa Aerosol Inhaler 1 puff INHALATION BID RF: 0 albuterol sulfate [Ventolin HFA] 90 mcg/actuation Hfa Aerosol Inhaler 2 dose Inhalation Q4H PRN PRNRF: 0 fluticasone propionate [Flonase Allergy Relief] 50 mcg/actuation [place],Suspension 1 spray Intranasal DAILY RF: 0 finasteride 5 mg Tablet 5 mg PO DAILY RF: 0 bupropion HCl 300 mg Tablet Extended Release 24 Hr 300 mg PO DAILY RF: 0 ipratropium bromide 17 mcg/actuation Hfa Aerosol Inhaler 2 dose Inhalation Q6H PRN PRNRF: 0 miconazole-skin [Miconazole-3 prefil,cream,wipe] 4 % (200 mg)- 2 % (9 gram) Kit 1 dose Topical DAILY RF: 0 furosemide [Lasix] 20 mg tablet 20 mg PO DAILY Qty: 1 RF: 0 Discharge Instructions Additional Instructions: Please follow-up with [facility] clinic as scheduled. Take your medication as prescribed. Please contact your primary care physician to arrange follow-up. Return to the ER for any worsening or new concerning symptoms. Referrals: Pippa Madden [Primary Care Provider] - Medical Decision Making 64-year-old male on methadone for opioid use disorder here after missing dosing, recently seen yesterday for angioedema, noncompliant with no antihypertensive prescribed yesterday. Patient is hypertensive here today. Plan to treat with methadone dosing 60 mg as requested by methadone clinic. I will give prescribed dose of Norvasc 5 mg and advised to continue as prescribed tomorrow. Patient has outpatient follow-up scheduled with his PCP. HPI General Mode of arrival: ambulatory. Date/Time Provider Initiated Documentation: 01/12/20 15:34. Limitations to Documentation: no limitations. Information obtained by: patient. HPI Narrative: 64yo m who is on methadone for opioid use disorder, here requesting daily methadone dosing. Patient was here in the emergency department yesterday for angioedema and was treated with FFP and TXA and has improved dramatically. Unfortunately he was not able to arrange for transportation to methadone clinic today. ED technical operations manager, Jam Cox, spoke with treating provider at methadone clinic who requested that patient be given his daily dose of methadone today and that arrangements will be made for transportation to methadone clinic tomorrow and ongoing. Of note, patient has stopped taking his lisinopril as directed but has yet to start his Norvasc as prescribed. Related Data Home Medications Medication Instructions Recorded Confirmed Flovent HFA 1 puff INHALATION BID 09/13/18 01/12/20 albuterol sulfate [Ventolin HFA] 2 dose INHALATION Q4H PRN PRN 09/13/18 01/12/20 bupropion HCl 300 mg PO DAILY 09/13/18 01/12/20 calcium carbonate [Calcium 500] 500 mg PO DAILY 09/13/18 01/12/20 famotidine 40 mg PO BID 09/13/18 01/12/20 ferrous sulfate 325 mg PO DAILY 09/13/18 01/12/20 finasteride 5 mg PO DAILY 09/13/18 01/12/20 fluticasone propionate [Flonase 1 spray INTRANASAL DAILY 09/13/18 01/12/20 Allergy Relief] gabapentin 300 mg PO BID 09/13/18 01/12/20 ipratropium bromide 2 dose INHALATION Q6H PRN PRN 09/13/18 01/12/20 methadone 60 mg PO DAILY 09/13/18 01/12/20 methocarbamol 750 mg PO QID PRN 09/13/18 01/12/20 miconazole-skin 1 dose TOPICAL DAILY 09/13/18 01/12/20 [Miconazole-3 prefil,cream,wipe] omeprazole 20 mg PO DAILY #14 cap 05/20/19 01/12/20 furosemide [Lasix] 20 mg PO DAILY #1 tab 06/02/19 01/12/20 prochlorperazine maleate 10 mg PO TID PRN #7 tab 01/10/20 01/12/20 [Compazine] amlodipine [Norvasc] 5 mg PO DAILY #14 tab 01/11/20 01/12/20 Previous Rx's Medication Instructions Recorded omeprazole 20 mg PO DAILY #14 cap 05/20/19 furosemide [Lasix] 20 mg PO DAILY #1 tab 06/02/19 prochlorperazine maleate 10 mg PO TID PRN #7 tab 01/10/20 [Compazine] amlodipine [Norvasc] 5 mg PO DAILY #14 tab 01/11/20 Allergies Allergy/AdvReac Type Severity Reaction Status Date / Time Sulfa (Sulfonamide Allergy Unverified 01/12/20 15:21 Antibiotics) General Stated Complaint: GenMedical KENYETTA: 5 Review of Systems Constitutional Constitutional: Denies fever(s) ENT Comments: Swelling improved Cardiovascular Cardiovascular: Denies dyspnea Respiratory Respiratory: Denies dyspnea [facility] Medical History Diabetes (Chronic) HTN (hypertension) (Chronic) Narcotic abuse in remission (Acute) Social History Smoking/Tobacco Use Status: Current every day Tobacco Type: cigarettes Years smoked: 45 Alcohol Intake: never Drug use: Current Sobriety Substance use type: does not use Do you feel safe at home: Yes Do you feel safe in your relationship?: Yes Exam Const General: cooperative and no acute distress HENMT Mouth: moist mucous membranes Eyes Conjunctivae: normal conjunctivae Sclera: normal sclerae Neck Neck: trachea midline and supple Resp Auscultation: clear to auscultation bilaterally, no rales, no rhonchi and no wheezes Cardio Rate: regular rate and not tachycardic Rhythm: regular rhythm GI Palpation: soft, not firm, no guarding, no masses, not rigid and nontender Skin General skin exam: no rashes or lesions noted Neuro General: alert and awake Extrem General: no edema Psych Appearance: grossly normal Course Vital Signs Vital signs: Vital Signs Temperature 36.8 C 01/12/20 15:19 Pulse 76 01/12/20 15:19 Respiratory Rate 16 01/12/20 15:19 Blood Pressure 184/96 H 01/12/20 15:19 Pulse Oximetry 97 01/12/20 15:19 Temperature 36.8 C 01/12/20 15:19 Temperature Source Skin 01/12/20 15:19 Pulse 76 01/12/20 15:19 Respiratory Rate 16 01/12/20 15:19 Respiratory Effort Non-Labored 01/12/20 15:23 Blood Pressure 184/96 H 01/12/20 15:19 Blood Pressure Position Sitting 01/12/20 15:19 Pulse Oximetry 97 01/12/20 15:19 Oxygen Delivery Method Room Air 01/12/20 15:19 Oxygen Flow Rate 0 01/12/20 15:19 Pain Level 0 01/12/20 15:19 Comment 01/12/20 15:19
[2020-01-12] MEDS: Methadone Liquid 10 MG/ML 60 MG PO (15:43)
[2020-01-12] MEDS: amLODIPine 5 MG TAB PO (15:45)
== END 2020-01-12 15:48 | disposition home or self-care (01) ==
PROVIDERS: Emergency Provider Student in an Organized Health Care Education/Training Program; PCP Student in an Organized Health Care Education/Training Program
DX: F11.10 Opioid abuse, uncomplicated (principal); I10 Essential (primary) hypertension; Z91.14 Patient's other noncompliance with medication regimen
CPT/HCPCS: 99283

== ENCOUNTER 2024-02-16 22:11 | Emergency (ER) | payer MEDICARE, SELFPAY ==
[2024-02-16] VITALS (20 sets, daily range): BP systolic 177–220; BP diastolic 82–102; PULSE 81–106; RESP 12–41; TEMP 36.5; O2SAT 90–100
--- NOTE | 2024-02-16 22:00 | DI.RAD_ITS ---
Exam(s) XR PORTABLE CHEST AP EXAM: XR PORTABLE CHEST AP CLINICAL HISTORY: cough, SOB, suspect pneumonia. TECHNIQUE: 2D digital imaging was performed. COMPARISON: CR XR CHEST 2V PA LATERAL from 11/09/2019 CR,XR XR CHEST 2V PA LATERAL from 01/10/2020 FINDINGS: Single AP portable view. Heart size is upper normal. The mediastinum is not widened. Bilateral interstitial infiltrates again noted, similar to 4 years ago. May have an element of chron icity. There are no Lupe B lines. No pleural effusions. Bilateral shoulder prostheses noted. IMPRESSION: Bilateral increased interstitial markings throughout both lung arevalo.Possible element of chronicity as similar pattern was present in January 2020. However, findings were not evident on chest x-ray o f November 2019. Therefore possible consideration for pulmonary edema also to be considered here. As above. Correlation with clinical findings and appropriate blood work recommended. DATA REPOSITORY: RADIATION DOSE DELIVERED:
--- NOTE | 2024-02-16 22:00 | RT.EKG_ITS ---
APPROVED REPORT Exam: Resting ECG Reason for Exam: shortness of breath Patient Location: E HR:96 bpm ECG Measurements Heart Rate 96 AXIS IA 176 P 58 QRSd 145 QRS -20 QT 406 T 82 QTc 514 Conclusion Sinus rhythm...normal P axis, V-rate 60- 99 Ventricular premature complex...V complex w/ short R-R interval Probable left atrial enlargement...P >50mS, <-0.10mV V1 Left bundle branch block...QRSd>120, broad/notched R ST elevation secondary to IVCD...Multiple VCG criteria Physician: No STEMI. Left bundle branch block present, new compared to prior EKG from 2019. Negati ve for Sgarbossa's criteria and negative for modified Sgarbossa's criteria
--- NOTE | 2024-02-16 22:15 | W.ED.GENAD ---
Discharge Plan Disposition Patient Disposition: Home Condition: Good Discharge Details Clinical Impression: COPD exacerbation, Pneumonia Primary Care Provider: Pippa Madden ED Provider: Norman Siddiqi Home Meds and New Rx's Prescriptions: New levofloxacin 750 mg tablet 750 mg PO DAILY 10 Days Qty: 10 0RF No Action omeprazole 20 mg capsule,delayed release(DR/EC) 20 mg PO DAILY Qty: 14 0RF prochlorperazine maleate [Compazine] 10 mg tablet 10 mg PO TID PRN (Reason: nausea and vomiting) Qty: 7 0RF amlodipine [Norvasc] 5 mg tablet 5 mg PO DAILY Qty: 14 0RF benzonatate 100 mg capsule 100 mg PO Q6H doxycycline hyclate 100 mg capsule 100 mg PO BID guaifenesin [Mucinex] 600 mg tablet extended release 12hr 1,200 mg PO Q6H PRN magnesium oxide 400 mg magnesium capsule 400 mg PO DAILY metoprolol tartrate 25 mg tablet 25 mg PO BID Patient Comments: TAKE ONE TABLET BY MOUTH TWICE DAILY prednisone 10 mg tablet 30 mg PO DAILY Patient Comments: Take 4 tablets by mouth daily for 3 days, then 3 tablets daily for 3 days, then 2 tablets daily for 3 days, then 1 tablet daily for 3 days, then stop. Rx Instructions: 4 daily for 3 days, 3 daily for 3 days, 2 daily for 3 days, 1 daily for 3 days, stop spironolactone 25 mg tablet 25 mg PO DAILY Patient Comments: TAKE ONE TABLET BY MOUTH ONCE DAILY lidocaine [Lidocaine Pain Relief] 4 % adhesive patch,medicated 1 patch TOPICAL Q24H Patient Comments: apply 1 patch to skin as needed Externally Once a day 30 days potassium chloride 20 mEq tablet extended release 20 meq PO BID Patient Comments: TAKE ONE TABLET BY MOUTH TWICE DAILY ammonium lactate 12 % cream 1 applic TOPICAL BID Patient Comments: Apply topically as needed for Dry Skin. atorvastatin 80 mg tablet 80 mg PO DAILY Patient Comments: TAKE ONE TABLET BY MOUTH ONCE DAILY losartan-hydrochlorothiazide 100-12.5 mg tablet 1 tab PO DAILY Patient Comments: TAKE ONE TABLET BY MOUTH ONCE DAILY multivitamin [Daily Value] Tablet 1 tab PO DAILY tadalafil 20 mg tablet 20 mg PO DAILY PRN Patient Comments: TAKE ONE TABLET BY MOUTH DAILY NEEDED furosemide [Lasix] 20 mg tablet 40 mg PO DAILY calcium carbonate [Calcium 500] 500 mg calcium (1,250 mg) Tablet 500 mg PO DAILY Rx Instructions: unknown dose methadone 5 mg Tablet 60 mg PO DAILY famotidine 40 mg Tablet 40 mg PO BID methocarbamol 750 mg Tablet 750 mg PO QID PRN ferrous sulfate 325 mg (65 mg iron) Tablet 325 mg PO DAILY gabapentin 300 mg Capsule 300 mg PO Q6H fluticasone propionate [Flovent HFA] 220 mcg/actuation Hfa Aerosol Inhaler 1 puff INHALATION BID albuterol sulfate [Ventolin HFA] 90 mcg/actuation Hfa Aerosol Inhaler 2 dose Inhalation Q4H PRN PRN fluticasone propionate [Flonase Allergy Relief] 50 mcg/actuation Goldvein,Suspension 1 spray Intranasal DAILY finasteride 5 mg Tablet 5 mg PO DAILY bupropion HCl 300 mg Tablet Extended Release 24 Hr 300 mg PO DAILY ipratropium bromide 17 mcg/actuation Hfa Aerosol Inhaler 2 dose Inhalation Q6H PRN PRN miconazole-skin [Miconazole-3 prefil,cream,wipe] 4 % (200 mg)- 2 % (9 gram) Kit 1 dose Topical DAILY Discharge Instructions Instructions: COPD (Chronic Obstructive Pulmonary Disease) (ED), Pneumonia (ED) Additional Instructions: It is my recommendation that you do not go home. It is my recommendation that you stay for inpatient IV antibiotics. You would likely worsen even with this less ideal outpatient oral antibiotic. Please take it as directed. The potential risks of leaving without complete and appropriate therapy is , or lifelong disability in the worst case scenario, but also other potential less severe scenarios could also occur and lead to a significant diminishment of your quality of life. Please take the new inhaler that we have given you 2 puffs every 12 hours. Please take the levofloxacin antibiotic as directed. You can start this tomorrow. If you have any change in your opinions, please do not hesitate to come back for admission. You were administered vancomycin, Zosyn, and doxycycline here for your hospital acquired resistant pneumonia. If you notice any worsening of your symptoms, or any new symptoms such as vomiting, diarrhea, fever, chills, shortness of breath, chest pain, numbness, weakness, or fainting , please return immediately to the emergency department for reevaluation. Please follow up with your primary care provider as soon as possible for reassessment and reevaluation. As always, it was a pleasure participating in your medical care today. Referrals: Pippa Madden [Primary Care Provider] - [facility] General Date/Time Provider Initiated Documentation: 02/16/24 22:13. [facility] Narrative: This is a pleasant 69-year-old -Portuguese male with a past medical history of angioedema, hypertension, high cholesterol, COPD, opiate use disorder now currently on methadone, who presents today for shortness of breath. Patient states that about 2 weeks ago he was admitted to [facility] and treated for pneumonia. He was discharged about a week ago on antibiotics. He is not certain what kind. [facility]. For the past week he has noticed runny nose congestion and the gradual development of a mild cough with mild shortness of breath. He has an albuterol inhaler but has had persistent shortness of breath in spite of this. He denies chest pain. He denies any cardiac history. He denies any vomiting or diarrhea. No fever. He does admit to productivity with his cough for purulent colored sputum. No hemoptysis. No other complaints at this time. He denies pleuritic chest pain aside for when he has a cough. 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 He was given an initial DuoNeb breathing treatment followed by an albuterol breathing treatment. He had notable improvement with this. Related Data Home Medications Medication Instructions Recorded Confirmed albuterol sulfate 90 mcg/actuation 2 dose inhalation Q4H PRN PRN 09/13/18 02/16/24 aerosol inhaler (Ventolin HFA) bupropion HCl 300 mg 24 hr tablet, 300 mg PO DAILY 09/13/18 02/16/24 extended release calcium carbonate 500 mg calcium 500 mg PO DAILY 09/13/18 02/16/24 (1,250 mg) tablet (Calcium 500) famotidine 40 mg tablet 40 mg PO BID 09/13/18 02/16/24 ferrous sulfate 325 mg (65 mg 325 mg PO DAILY 09/13/18 02/16/24 iron) tablet finasteride 5 mg tablet 5 mg PO DAILY 09/13/18 02/16/24 fluticasone propionate 220 1 puff inhalation BID 09/13/18 02/16/24 mcg/actuation HFA aerosol inhaler (Flovent HFA) fluticasone propionate 50 1 spray intranasal DAILY 09/13/18 02/16/24 mcg/actuation nasal spray,suspension (Flonase Allergy Relief) gabapentin 300 mg capsule 300 mg PO Q6H 09/13/18 02/16/24 ipratropium bromide 17 2 dose inhalation Q6H PRN PRN 09/13/18 02/16/24 mcg/actuation HFA aerosol inhaler methadone 5 mg tablet 60 mg PO DAILY 09/13/18 02/16/24 methocarbamol 750 mg tablet 750 mg PO QID PRN 09/13/18 02/16/24 miconazole-skin cleanser #17 4 % 1 dose topical DAILY 09/13/18 02/16/24 (200 mg)-2 % (9 gram) vaginal kit (Miconazole-3 prefilled,cream,wipes) omeprazole 20 mg capsule,delayed 20 mg PO DAILY #14 caps 05/20/19 02/16/24 release prochlorperazine maleate 10 mg 10 mg PO TID PRN nausea and 01/10/20 02/16/24 tablet (Compazine) vomiting #7 tabs amlodipine 5 mg tablet (Norvasc) 5 mg PO DAILY #14 tabs 01/11/20 02/16/24 ammonium lactate 12 % topical cream 1 applic topical BID 02/16/24 02/16/24 atorvastatin 80 mg tablet 80 mg PO DAILY 02/16/24 02/16/24 benzonatate 100 mg capsule 100 mg PO Q6H 02/16/24 02/16/24 doxycycline hyclate 100 mg capsule 100 mg PO BID 02/16/24 02/16/24 furosemide 20 mg tablet (Lasix) 40 mg PO DAILY 02/16/24 02/16/24 guaifenesin 600 mg tablet, 1,200 mg PO Q6H PRN 02/16/24 02/16/24 extended release 12 hr (Mucinex) lidocaine 4 % topical patch 1 patch topical Q24H 02/16/24 02/16/24 (Lidocaine Pain Relief) losartan 100 1 tab PO DAILY 02/16/24 02/16/24 mg-hydrochlorothiazide 12.5 mg tablet magnesium oxide 400 mg PO DAILY 02/16/24 02/16/24 metoprolol tartrate 25 mg tablet 25 mg PO BID 02/16/24 02/16/24 multivitamin (Daily Value tablet) 1 tab PO DAILY 02/16/24 02/16/24 potassium chloride 20 mEq 20 meq PO BID 02/16/24 02/16/24 tablet,extended release prednisone 10 mg tablet 30 mg PO DAILY 02/16/24 02/16/24 spironolactone 25 mg tablet 25 mg PO DAILY 02/16/24 02/16/24 tadalafil 20 mg tablet 20 mg PO DAILY PRN 02/16/24 02/16/24 levofloxacin 750 mg tablet 750 mg PO DAILY 10 days #10 tabs 02/17/24 Previous Rx's Medication Instructions Recorded omeprazole 20 mg capsule,delayed 20 mg PO DAILY #14 caps 05/20/19 release prochlorperazine maleate 10 mg 10 mg PO TID PRN nausea and 01/10/20 tablet (Compazine) vomiting #7 tabs amlodipine 5 mg tablet (Norvasc) 5 mg PO DAILY #14 tabs 01/11/20 levofloxacin 750 mg tablet 750 mg PO DAILY 10 days #10 tabs 02/17/24 Allergies Allergy/AdvReac Type Severity Reaction Status Date / Time Sulfa (Sulfonamide Allergy Swelling/Ed Unverified 02/16/24 22:19 Antibiotics) hakan General Stated Complaint: SOB KENYETTA: 3 Review of Systems All systems reviewed & are unremarkable except as noted in HPI and below Exam Narrative Exam Narrative: 1.Const: Well-nourished, Well-developed, appearing stated age 2.Eyes: PERRL, no conjunctival injection, and symmetrical lids. 3.ENT: Atraumatic external nose and ears. Moist MM. Neck: Symmetric, trachea midline, No thyromegaly. 4.CVS: +S1/S2, No murmurs or gallops. Peripheral pulses 2+ and equal in all extremities. Brisk capillary refill in all extremities. 5.RESP: Unlabored respiratory effort. Diffuse wheezes throughout. Scattered crackles. 6.GI: Soft, Nontender/Nondistended, No hepatosplenomegaly. No guarding or rebound. 7.MSK: Normocephalic/Atraumatic, Extremities w/o deformity or ttp No cyanosis or clubbing, Normal movement of all extremities. No pitting edema 8.Skin: Warm, Dry. No rashes or lesions. 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 Sensation grossly intact, no focal neurologic deficits. 10.Psych: (AAO) x3. Appropriate mood and affect Course Vital Signs Vital signs: Vital Signs Temperature 36.5 C 02/16/24 22:08 Pulse 95 H 02/16/24 22:08 Respiratory Rate 18 02/16/24 22:08 Blood Pressure 195/93 H 02/16/24 22:08 Pulse Oximetry 90 L 02/16/24 22:08 Temperature 36.5 C 02/16/24 22:08 Temperature Source Temporal Artery Scan 02/16/24 22:08 Pulse 95 H 02/16/24 22:08 Respiratory Rate 18 02/16/24 22:08 Blood Pressure 195/93 H 02/16/24 22:08 Blood Pressure Position Supine 02/16/24 22:08 Pulse Oximetry 90 L 02/16/24 22:08 Oxygen Delivery Method Room Air 02/16/24 22:08 Oxygen Flow Rate 0 02/16/24 22:08 Medical Decision Making This is a pleasant 69-year-old -Portuguese male with a past medical history of angioedema, hypertension, high cholesterol, COPD, opiate use disorder now currently on methadone, who presents today for shortness of breath. Patient states that about 2 weeks ago he was admitted to [facility] and treated for pneumonia. He was discharged about a week ago on antibiotics. He is not certain what kind. [facility]. For the past week he has noticed runny nose congestion and the gradual development of a mild cough with mild shortness of breath. He has an albuterol inhaler but has had persistent shortness of breath in spite of this. He denies chest pain. He denies any cardiac history. He denies any vomiting or diarrhea. No fever. He does admit to productivity with his cough for purulent colored sputum. No hemoptysis. No other complaints at this time. He denies pleuritic chest pain aside for when he has a cough. Exam demonstrates well-appearing male, no respiratory distress. Currently saturating at 90 on room air. Diffuse wheezes throughout, scattered crackles. No pitting edema of the lower extremities. No chest pain. Symptoms seem unlikely to be ACS. CHF is on the differential, however COPD exacerbation and potential pneumonia is highest on the differential. No history of blood clots personally or in his history. No recent long flight surgeries or procedures. We will get an EKG, evaluate for cardiac etiologies, given additional breathing treatment and Solu-Medrol, check for pneumonia, monitor closely and reassess. Symptoms appear inconsistent at this time with a PE or dissection. No severe respiratory distress requiring intubation or BiPAP currently. 10:19 PM EKG shows evidence of a left bundle branch block, only prior EKG for comparison is 4 years ago in 2020 which was normal sinus at that time. Left bundle branch block does not meet Sgarbossa's criterion, however the bundle branch block is certainly new. Concern for cardiac strain potentially from pulmonary etiology. However this certainly does increase concern for potential cardiac etiology. Will continue to monitor closely. 10:55 PM [facility] while there the patient had congestive heart failure exacerbation, COPD exacerbation, and pneumonia. He was treated for community-acquired pneumonia, he was discharged with a course of doxycycline and tapering steroids. Here the patient has remained relatively stable. Patient's chest x-ray shows evidence of pneumonia. Currently waiting on formal read from [facility]. We will start broad-spectrum antibiotics for hospital-acquired pneumonia. Will give vancomycin, Zosyn, and doxycycline for atypical coverage. Will continue to monitor closely and reassess. 12:26 AM Patient's troponin has returned normal, patient's chest x-ray shows notable pneumonia, I continue to recommend admission to the patient. Unfortunately patient is in a challenging scenario. He is currently homeless, but [facility] with his and older child. They work during the day. They also have dogs. They sometimes sleep in their car. Patient does not want to leave his dog alone currently. He is worried that if he is admitted that will happen. Myself and the hospitalist Dr. Fletcher both had a long discussion with the patient recommending admission. I made it very clear that outpatient antibiotics would not be adequate for the management of his current illness. Patient understands this. We spent over 30 minutes discussing this with him. We discussed risks and benefits of home management, and how this decision could lead to potential permanent lifelong disability, intubation, or . We also spent long time offering alternatives and various outpatient resources to help with his dog. Patient made it clear that he appreciated our help, but would be leaving tonight, and would be trying to follow-up closely with his primary care provider and would come back if he got his dog situation figured out. We will prescribe Levaquin for the patient for home use, as the doxycycline has been inadequate. This does come with risks, but I discussed this with the patient and he understands. We will give a Symbicort inhaler. Patient is of a appropriate age to make decisions. The patient is of sound mind, appears clinically sober, and has capacity to make decisions by my clinical exam. We have provided options for treatment and discussed the risks and benefits of these options and refusing these options, including and disability specific to the patient's pathology. Patient is able to discuss the risks and benefits and alternatives of treatment and refusing treatment. We have tried to involve the patient's family or support group that was present here or by contacting them on the phone. The patient chooses to leave before evaluation and treatment is complete AGAINST MEDICAL ADVICE. I have extensively reviewed the treatment plan and discharge instructions with the patient. I have addressed all patient concerns at this time. The patient was made aware of what symptoms to monitor for that would warrant a return to the emergency department. Discussed the plan with the patient, they demonstrate verbal understanding and agreement with our assessment and plan at this time. The documentation in this chart was dictated using [employer] dictation software. Please excuse any dictation errors. At time of discharge patient was saturating 95% on room air. He was feeling much better. FINDINGS: Lungs: There is perihilar interstitial prominence. There is peribronchial thickening There are perihilar streaky densities present. These findings are most consistent with bronchitis. Patchy infiltrates present within the left lower and right lower lobes of the lung early pneumonia can not be excluded. The pulmonary vasculature is normal. Pleural spaces: There is no evidence of pneumothorax. There are no pleural effusions present. Heart/Mediastinum: The cardiac silhouette is within normal limits. The mediastinum is normal. Vasculature: The aorta is normal. Bones/joints: There are bilateral shoulder total joint replacements. . The spine, sternum, ribs, and pectoral girdles are normal. The skeletal structures and soft tissues otherwise show no evidence of fracture or other acute processes. Soft tissues: There are no soft tissue masses or calcifications. The soft tissues of the extrathoracic region are unremarkable. IMPRESSION: 1. Findings consistant with bronchitis. 2. Possible left greater than right lower lobe lobar pneumonia.These are determined to be new findings when correlated with the prior examination. Thank you for allowing us to participate in the care of your patient. Dictated and Authenticated by: Nii Schneider MD 02/16/2024 11:22 PM Eastern Time ([place] & [place]) Quality:SDOH Health Related Social Needs: No Data to Display PFSH All Active Problems (Updated 02/17/24 @ 00:08 by Norman Siddiqi DO) Pneumonia (Acute) COPD exacerbation (Acute) Noncompliance with medications (Acute) Elevated blood pressure reading (Acute) Methadone use (Acute) Hypertension (Chronic) Angioedema (Acute) Nausea & vomiting (Acute) Opiate withdrawal (Acute) Abdominal pain (Acute) Medical History (Updated 02/17/24 @ 00:08 by Norman Siddiqi DO) Narcotic abuse in remission Diabetes HTN (hypertension) Social History Smoking/Tobacco Use Status: Current every day Tobacco Type: cigarettes Years smoked: 45 Smoking risk assessment performed?: Yes Alcohol Intake: never Drug use: Current Sobriety Substance use type: does not use Do you feel safe at home: Yes Do you feel safe in your relationship?: Yes
[2024-02-16] MEDS: methylPREDNISolone SUCC 125 MG VIAL IVP (22:22)
[2024-02-16] MEDS: Albuterol/Ipratropium 3 ML UPD VIAL UPD (22:22)
[2024-02-16 22:36] LABS: BE (Venous) -3 mmol/L (-2-3); HCO3 (Venous) 22 mmol/L (23-28); O2 Sat (Venous) 93 %; TCO2 (Venous) 20 mmol/L (24-29); pCO2 (Venous) 36 mmHg (41-51); pH (Venous) 7.39 (7.31-7.41); pO2 (Venous) 64 mmHg
[2024-02-16 22:45] LABS: Abs Immature Grans 0.02 10^3/uL (0.0-0.06); Absolute Basophil Count 0.05 10^3/uL (0.0-0.2); Absolute Eosinophil Count 0.28 10^3/uL (0.0-0.7); Absolute Lymphocyte Count 2.11 10^3/uL (1.2-3.4); Absolute Monocyte Count 0.91 10^3/uL (0.1-0.8); Absolute Neutrophil Count 5.32 10^3/uL (1.2-6.7); Basophils % 0.6; Eosinophils % 3.2; HCT 37.1 % (40.0-50.0); HGB 12.2 g/dL (13.5-17.5); Immature Grans % 0.2; Lymphocytes % 24.3; MCH 26.2 pg (27.0-33.0); MCHC 32.9 % (32.0-36.0); MCV 80 fL (80-95); MPV 8.9 fL (8.0-11.0); Monocytes % 10.5; Neutrophils % 61.2; Platelet Count 251 10^3/uL (130-400); RBC 4.66 10^6/uL (4.36-5.78); RDW 15.4 % (11.8-14.1); RDW-SD 44.4 fL; WBC 8.69 10^3/uL (4.4-10.8)
[2024-02-16 22:58] LABS: ALT 24 U/L (16-63); AST 20 U/L (15-37); Albumin 3.2 g/dL (3.4-5.0); Alkaline Phosphatase 77 U/L (46-116); Anion Gap 12.8 mmol/L (3-11); BUN 11 mg/dL (7-18); Bilirubin, Total 0.5 mg/dL (0.2-1.0); CO2 22.2 mmol/L (21.0-32.0); CREATININE 1.1 mg/dL (0.70-1.30); Calcium 8.4 mg/dL (8.5-10.1); Chloride 102 mmol/L (98-107); Estimated GFR 71.77 (mL/min/1.73m2); Glucose 137 mg/dL (74-106); NT-proBNP 433 pg/mL (<300); Potassium 3.2 mmol/L (3.5-5.1); Sodium 137 mmol/L (136-145); Total Protein 7.5 g/dL (6.4-8.2); Troponin I < 50 ng/L (< or =60)
[2024-02-16] MEDS: PIPERACILLIN/TAZO 3.375 GM in Normal Saline 50 ML IVPB (23:09)
[2024-02-16 23:15] LABS: COVID-19 PCR Negative (Negative); Influenza A PCR Negative (Negative); Influenza B PCR Negative (Negative); RSV PCR Negative (Negative)
[2024-02-16 23:16] LABS: Source Nasopharynx
--- NOTE | 2024-02-16 23:22 | DI.VRAD_ITS ---
PROCEDURE INFORMATION: Exam: XR Chest Exam date and time: 02/16/2024 10:36 PM Age: 69 years old Clinical indication: Cough and shortness of breath; Prior surgery; Surgery date: 6+ months; Surgery type: Shoulders replaced; Patient HX: Cough, SOB, suspect pneumonia TECHNIQUE: Imaging protocol: Radiologic exam of the chest. Views: 1 view. COMPARISON: CR XR CHEST 2V PA LATERAL 01/10/2020 1:17 PM FINDINGS: Lungs: There is perihilar interstitial prominence. There is peribronchial thickening There are perihilar streaky densities present. These findings are most consistent with bronchitis. Patchy infiltrates present within the left lower and right lower lobes of the lung early pneumonia can not be excluded. The pulmonary vasculature is normal. Pleural spaces: There is no evidence of pneumothorax. There are no pleural effusions present. Heart/Mediastinum: The cardiac silhouette is within normal limits. The mediastinum is normal. Vasculature: The aorta is normal. Bones/joints: There are bilateral shoulder total joint replacements. . The spine, sternum, ribs, and pectoral girdles are normal. The skeletal structures and soft tissues otherwise show no evidence of fracture or other acute processes. Soft tissues: There are no soft tissue masses or calcifications. The soft tissues of the extrathoracic region are unremarkable. IMPRESSION: 1. Findings consistant with bronchitis. 2. Possible left greater than right lower lobe lobar pneumonia.These are determined to be new findings when correlated with the prior examination. Dictated and Authenticated by: Nii Schneider MD. Ordering:JESSICA Austin MD
[2024-02-16] MEDS: DOXYCYCLINE 100 MG in Normal Saline 100 ML IVPB (23:50)
[2024-02-17] VITALS: PULSE 92; RESP 27; O2SAT 97
[2024-02-17 00:01] VITALS: BP 138/98; PULSE 94; PULSE 97; RESP 22; O2SAT 98
[2024-02-17 00:10] VITALS: O2SAT 97
[2024-02-17 00:20] VITALS: O2SAT 96
[2024-02-17] MEDS: Budesonide/Formoterol 160/4.5 6 GM 60 PUFF INH IH (00:35)
[2024-02-17 01:38] VITALS: BP 186/86; PULSE 92; RESP 18; O2SAT 95
== END 2024-02-17 01:38 | disposition home or self-care (01) ==
LOC: ER 02-17 01:30
PROVIDERS: Emergency Provider Student in an Organized Health Care Education/Training Program; PCP Student in an Organized Health Care Education/Training Program
DX: J44.1 Chronic obstructive pulmonary disease with (acute) exacerbation (principal); J18.9 Pneumonia, unspecified organism; I44.7 Left bundle-branch block, unspecified; E11.9 Type 2 diabetes mellitus without complications; I10 Essential (primary) hypertension; E78.5 Hyperlipidemia, unspecified; F17.210 Nicotine dependence, cigarettes, uncomplicated; Z59.01 Sheltered homelessness; Z53.29 Procedure and treatment not carried out because of patient's decision for other reasons
CPT/HCPCS: 80053; 82805; 87637; 93005; 94640; 96365; 96368; 96375; 99285; 71045; 83880; 84484; 85025; 93010; 99284; J2543; J2930; J3370; J7620

== ENCOUNTER 2024-02-17 15:14 | Inpatient (IN) | payer MEDICARE, SELFPAY ==
[2024-02-17] VITALS (9 sets, daily range): BP systolic 133–212; BP diastolic 65–97; PULSE 70–93; RESP 3–24; TEMP 36.5–37; O2SAT 93–99
--- NOTE | 2024-02-17 15:30 | DI.RAD_ITS ---
Exam(s) XR PORTABLE CHEST AP EXAM: XR PORTABLE CHEST AP CLINICAL HISTORY: cough. TECHNIQUE: 2D digital imaging was performed. COMPARISON: CR,XR XR PORTABLE CHEST AP from 02/16/2024 FINDINGS: Single AP portable view. Heart size is unchanged. There is no radiographic improvement bilateral interstitial pattern throughout both lung arevalo, not associated with obvious pleural effusions. Bilateral reverse shoulder prostheses again noted. IMPRESSION: No improvement in bilateral extensive interstitial pattern throughout both lung arevalo. DATA REPOSITORY: RADIATION DOSE DELIVERED:
[2024-02-17] MEDS: Albuterol/Ipratropium 3 ML UPD VIAL UPD ×2 (15:44→19:53)
[2024-02-17] MEDS: methylPREDNISolone SUCC 125 MG VIAL IVP (16:08)
[2024-02-17 16:10] LABS: Abs Immature Grans 0.06 10^3/uL (0.0-0.06); Absolute Basophil Count 0.02 10^3/uL (0.0-0.2); Absolute Lymphocyte Count 1.44 10^3/uL (1.2-3.4); Absolute Neutrophil Count 5.41 10^3/uL (1.2-6.7); Basophils % 0.3; HCT 38.2 % (40.0-50.0); HGB 12.5 g/dL (13.5-17.5); Immature Grans % 0.8; Lymphocytes % 19.1; MCH 26.2 pg (27.0-33.0); MCHC 32.7 % (32.0-36.0); MCV 80 fL (80-95); Neutrophils % 71.8; Platelet Count 263 10^3/uL (130-400); RBC 4.78 10^6/uL (4.36-5.78); RDW 15.3 % (11.8-14.1); RDW-SD 44.5 fL; WBC 7.53 10^3/uL (4.4-10.8)
--- NOTE | 2024-02-17 16:25 | W.ED.GENAD ---
Discharge Plan Disposition Patient Disposition: Admit to [facility] Condition: Stable Discharge Details Chief Complaint: RespSymp Clinical Impression: Elevated blood pressure reading, COPD exacerbation, Pneumonia Primary Care Provider: Pippa Madden ED Provider: Marco Pearl Home Meds and New Rx's Prescriptions: No Action benzonatate 100 mg capsule 100 mg PO Q6H doxycycline hyclate 100 mg capsule 100 mg PO BID guaifenesin [Mucinex] 600 mg tablet extended release 12hr 1,200 mg PO Q6H PRN magnesium oxide 400 mg magnesium capsule 400 mg PO DAILY metoprolol tartrate 25 mg tablet 25 mg PO BID Patient Comments: TAKE ONE TABLET BY MOUTH TWICE DAILY spironolactone 25 mg tablet 25 mg PO DAILY Patient Comments: TAKE ONE TABLET BY MOUTH ONCE DAILY lidocaine [Lidocaine Pain Relief] 4 % adhesive patch,medicated 1 patch TOPICAL Q24H Patient Comments: apply 1 patch to skin as needed Externally Once a day 30 days potassium chloride 20 mEq tablet extended release 20 meq PO BID Patient Comments: TAKE ONE TABLET BY MOUTH TWICE DAILY ammonium lactate 12 % cream 1 applic TOPICAL BID Patient Comments: Apply topically as needed for Dry Skin. atorvastatin 80 mg tablet 80 mg PO DAILY Patient Comments: TAKE ONE TABLET BY MOUTH ONCE DAILY losartan-hydrochlorothiazide 100-12.5 mg tablet 1 tab PO DAILY Patient Comments: TAKE ONE TABLET BY MOUTH ONCE DAILY multivitamin [Daily Value] Tablet 1 tab PO DAILY tadalafil 20 mg tablet 20 mg PO DAILY PRN Patient Comments: TAKE ONE TABLET BY MOUTH DAILY NEEDED furosemide [Lasix] 20 mg tablet 40 mg PO DAILY levofloxacin 750 mg tablet 750 mg PO DAILY 10 Days Qty: 10 0RF buprenorphine-naloxone 8-2 mg film 1 film sublingual DAILY omeprazole 40 mg capsule,delayed release(DR/EC) 40 mg PO DAILY calcium carbonate [Calcium 500] 500 mg calcium (1,250 mg) Tablet 500 mg PO DAILY Rx Instructions: unknown dose gabapentin 300 mg Capsule 300 mg PO Q6H fluticasone propionate [Flovent HFA] 220 mcg/actuation Hfa Aerosol Inhaler 1 puff INHALATION BID albuterol sulfate [Ventolin HFA] 90 mcg/actuation Hfa Aerosol Inhaler 2 dose Inhalation Q4H PRN PRN fluticasone propionate [Flonase Allergy Relief] 50 mcg/actuation [place],Suspension 1 spray Intranasal DAILY finasteride 5 mg Tablet 5 mg PO DAILY ipratropium bromide 17 mcg/actuation Hfa Aerosol Inhaler 2 dose Inhalation Q6H PRN PRN HPI General Date/Time Provider Initiated Documentation: 02/17/24 15:29. Limitations to Documentation: physical limitation. Information obtained by: patient, family and old records reviewed. HPI Narrative: 69-year-old gentleman with past medical history of angioedema, hypertension, COPD, opiate use disorder on methadone, tobacco abuse presents for evaluation of shortness of breath. Patient was evaluated last night in the emergency department and had a diagnosis concerning for hospital-acquired pneumonia, the patient left AGAINST MEDICAL ADVICE at that time. He reports that throughout the day he has had persistent shortness of breath, productive cough. He denies any fever. He does currently live in a homeless longterm. Yesterday the patient was hypoxic around 88% and received a DuoNeb by EMS which improved his saturation. Related Data Home Medications Medication Instructions Recorded Confirmed albuterol sulfate 90 mcg/actuation 2 dose inhalation Q4H PRN PRN 09/13/18 02/17/24 aerosol inhaler (Ventolin HFA) calcium carbonate 500 mg calcium 500 mg PO DAILY 09/13/18 02/17/24 (1,250 mg) tablet (Calcium 500) finasteride 5 mg tablet 5 mg PO DAILY 09/13/18 02/17/24 fluticasone propionate 220 1 puff inhalation BID 09/13/18 02/17/24 mcg/actuation HFA aerosol inhaler (Flovent HFA) fluticasone propionate 50 1 spray intranasal DAILY 09/13/18 02/17/24 mcg/actuation nasal spray,suspension (Flonase Allergy Relief) gabapentin 300 mg capsule 300 mg PO Q6H 09/13/18 02/17/24 ipratropium bromide 17 2 dose inhalation Q6H PRN PRN 09/13/18 02/17/24 mcg/actuation HFA aerosol inhaler ammonium lactate 12 % topical cream 1 applic topical BID 02/16/24 02/17/24 atorvastatin 80 mg tablet 80 mg PO DAILY 02/16/24 02/17/24 benzonatate 100 mg capsule 100 mg PO Q6H 02/16/24 02/17/24 doxycycline hyclate 100 mg capsule 100 mg PO BID 02/16/24 02/17/24 furosemide 20 mg tablet (Lasix) 40 mg PO DAILY 02/16/24 02/17/24 guaifenesin 600 mg tablet, 1,200 mg PO Q6H PRN 02/16/24 02/17/24 extended release 12 hr (Mucinex) lidocaine 4 % topical patch 1 patch topical Q24H 02/16/24 02/17/24 (Lidocaine Pain Relief) losartan 100 1 tab PO DAILY 02/16/24 02/17/24 mg-hydrochlorothiazide 12.5 mg tablet magnesium oxide 400 mg PO DAILY 02/16/24 02/17/24 metoprolol tartrate 25 mg tablet 25 mg PO BID 02/16/24 02/17/24 multivitamin (Daily Value tablet) 1 tab PO DAILY 02/16/24 02/17/24 potassium chloride 20 mEq 20 meq PO BID 02/16/24 02/17/24 tablet,extended release spironolactone 25 mg tablet 25 mg PO DAILY 02/16/24 02/17/24 tadalafil 20 mg tablet 20 mg PO DAILY PRN 02/16/24 02/17/24 buprenorphine 8 mg-naloxone 2 mg 1 film sublingual DAILY 02/17/24 02/17/24 sublingual film levofloxacin 750 mg tablet 750 mg PO DAILY 10 days #10 tabs 02/17/24 02/17/24 omeprazole 40 mg capsule,delayed 40 mg PO DAILY 02/17/24 02/17/24 release Previous Rx's Medication Instructions Recorded levofloxacin 750 mg tablet 750 mg PO DAILY 10 days #10 tabs 02/17/24 Allergies Allergy/AdvReac Type Severity Reaction Status Date / Time Sulfa (Sulfonamide Allergy Swelling/Ed Unverified 02/17/24 15:27 Antibiotics) hakan General Stated Complaint: RespSymp KENYETTA: 3 Exam Narrative Exam Narrative: Review of Systems: All systems reviewed & are unremarkable except as noted in HPI and below Well-developed, persistent coughing NCAT PERRL, normal conjunctiva RRR, no murmur Hypertensive Mild tachypnea, diffuse wheezing, no hypoxia Nondistended abdomen Extremities w/o deformity, no cyanosis, no edema No rashes or lesions. no focal neurologic deficits Crying Course Vital Signs Vital signs: Vital Signs Temperature 36.5 C 02/17/24 15:16 Pulse 91 H 02/17/24 15:16 Respiratory Rate 18 02/17/24 15:16 Blood Pressure 212/95 H 02/17/24 15:16 Pulse Oximetry 99 02/17/24 15:16 Temperature 36.5 C 02/17/24 15:16 Temperature Source Oral 02/17/24 15:28 Pulse 90 02/17/24 15:28 Respiratory Rate 24 02/17/24 15:28 Respiratory Effort Short of Breath 02/17/24 15:28 Respiratory Depth Normal 02/17/24 15:28 Blood Pressure 192/92 H 02/17/24 15:28 Blood Pressure Position Sitting 02/17/24 15:28 Pulse Oximetry 99 02/17/24 15:28 Oxygen Delivery Method Room Air 02/17/24 15:28 Oxygen Flow Rate 0 02/17/24 15:16 Pain Level 0 02/17/24 15:16 Lab/Test Results Lab/Test Results: 02/17/24 16:17 Blood Blood Culture - Pending 02/17/24 16:01 Blood Blood Culture - Pending Laboratory Tests Range/Units 02/17/24 16:03 WBC (4.4-10.8) 10^3/uL 7.53 RBC (4.36-5.78) 10^6/uL 4.78 Hgb (13.5-17.5) g/dL 12.5 L Hct (40.0-50.0) % 38.2 L MCV (80-95) fL 80 MCH (27.0-33.0) pg 26.2 L MCHC (32.0-36.0) % 32.7 RDW (11.8-14.1) % 15.3 H Plt Count (130-400) 10^3/uL 263 MPV (8.0-11.0) fL 9.0 Immature Gran % 0.8 Neutrophils % 71.8 Lymphocytes % 19.1 Monocytes % 8.0 Eosinophils % 0.0 Basophils % 0.3 Nucleated RBC % (0.0-0.3) % 0.0 Absolute Neutrophils (1.2-6.7) 10^3/uL 5.41 Absolute Lymphocytes (1.2-3.4) 10^3/uL 1.44 Absolute Monocytes (0.1-0.8) 10^3/uL 0.60 Absolute Eosinophils (0.0-0.7) 10^3/uL 0.00 Absolute Basophils (0.0-0.2) 10^3/uL 0.02 Sodium Cancelled Potassium Cancelled Chloride Cancelled Carbon Dioxide Cancelled Anion Gap Cancelled BUN Cancelled Creatinine Cancelled Est GFR (CKD-EPI 2020) Cancelled Glucose Cancelled Calcium Cancelled Total Bilirubin Cancelled AST Cancelled ALT Cancelled Alkaline Phosphatase Cancelled Total Protein Cancelled Albumin Cancelled Procalcitonin Cancelled Medical Decision Making Emergent evaluation of shortness of breath. I reviewed the record from the emergency department visit last night including lab work, x-ray, medications administered and treatment plan. The x-ray from last night was concerning for pneumonia and xray today look worse. He was recently admitted to another hospital for this as well, it seems that the concern may have been an incompletely treated pneumonia or a resistant pneumonia. steroid and bronchodilator treatment were given, antibiotics restarted. repeat labs, cultures have been ordered. I discussed with the hospitalist and the patient will be admitted at this time. CTA ordered per hospitalist request. Medical Records Medical records reviewed: Yes I reviewed the patient's medical records. Lab Data Lab results reviewed: Yes I reviewed the patient's lab results. Quality:SDOH Health Related Social Needs: No Data to Display PFSH All Active Problems (Updated 02/17/24 @ 16:41 by Marco Pearl MD) Pneumonia (Acute) COPD exacerbation (Acute) Noncompliance with medications (Acute) Elevated blood pressure reading (Acute) Methadone use (Acute) Hypertension (Chronic) Angioedema (Acute) Nausea & vomiting (Acute) Opiate withdrawal (Acute) Abdominal pain (Acute) Medical History (Updated 02/17/24 @ 16:41 by Macro Pearl MD) Narcotic abuse in remission Diabetes HTN (hypertension) Social History Smoking/Tobacco Use Status: Current every day Tobacco Type: cigarettes Years smoked: 45 Smoking risk assessment performed?: Yes Alcohol Intake: never Drug use: Current Sobriety Substance use type: does not use Housing: homeless Do you feel safe at home: Yes Do you feel safe in your relationship?: Yes
[2024-02-17] MEDS: DOXYCYCLINE 100 MG in Normal Saline 100 ML IVPB (16:26)
[2024-02-17] MEDS: Omnipaque 350 MG/ML 100 ML BTL IJ (16:32)
[2024-02-17] MEDS: Normal Saline - Diluent 50 ML VIAL IJ (16:34)
--- NOTE | 2024-02-17 16:35 | W.PM.HP.N ---
Date of service: 02/17/24 Time of Service: 16:42 Assessment and Plan Assessment and plan (1) Pneumonia: Status: Acute Assessment and plan: Monitor VS and O2 supplementation PRN for sat 92% Continue Doxycycline, zosyn, and vancomycin MRSA PCR Strep pneumoniae, legionella, mycoplasma pneumoniae testing Mucinex Benzonatate Upon admission, chest CT showed increased bilateral interstitial markings greater at the lung bases, consistent with CHF, proBNP was 1271, and procalcitonin was negative. The patient is most likely having an exacerbation of the COPD, therefore IV vancomycin and IV Zosyn will be stopped; doxycycline IV will be continued as well as steroids as the patient has increased amount of sputum production with yellow to green color which might indicate purulence. The patient will also be treated with IV Lasix. (2) COPD exacerbation: Status: Acute Assessment and plan: Nebulizers PRN and scheduled Fluticasone oral prednisone and as above (3) Methadone use: Status: Acute Assessment and plan: Denies but on beprenorphine 8/ naloxone 2 , will continue (4) Hypertension: Status: Chronic Assessment and plan: Losartan Metoprolol (5) Tobacco abuse: Status: Acute Assessment and plan: Nicotine patch (6) Congestive heart failure: Status: Chronic Assessment and plan: Echocardiogram BNP was 433 last night , repeating test today is 1271 On oral Lasix at home but will initiate IV lasix (7) On deep vein thrombosis (DVT) prophylaxis: Status: Acute Assessment and plan: Lovenox SC (8) Discharge planning issues: Status: Acute Assessment and plan: Homeless , CM to f/u discussed with Dr. Cox History of Present Illness History of Present Illness Chief Complaint: Shortness of breath Narrative: D 69 years old -[place] male patient with past medical history of angioedema, hypertension, hyperlipidemia, COPD, tobacco abuse, opiate use disorder now currently on methadone presented to the ED at [facility] on 02/17/2024 for difficulty breathing; initially on 02/16/2024, the patient had left and very reached AGAINST MEDICAL ADVICE after presenting for evaluation of shortness of breath. On his earlier presentation the patient had mentioned that 2 weeks ago he was admitted to [facility] and treated for pneumonia from where he was discharged with antibiotics the patient has been living at a homeless half-way and has noticed a runny nose and congestion over the past week with gradual development of mild cough with mild shortness of breath. He has been taking his albuterol inhaler but the shortness of breath persisted despite this treatment. Patient reports changed in vision and dizziness, denies chest pain, cardiac history, hemoptysis, nausea, vomiting or diarrhea. The patient denied fever, the patient was hypoxic around 88% improving with the DuoNeb administration. Labs in the ED were unremarkable.Chest XR showed unchanged bilateral infiltrates with an element of chronicity. The patient was started on IV doxycycline, vancomycin, and piperacillin tazobactam. The hospitalist was consulted and the patient was admitted to the medical surgical floor for evaluation and management of shortness of breath, hospital-acquired pneumonia. Hospitalist requested activated work up consisting of a chest CT, her proBNP, and a procalcitonin level. BMP and CBC were pending. When seen in room patient reported feeling dizzy and rib pain with coughing spells, blurred vision.The patient denied hemoptysis, chest pain, nausea,vomiting, dysuria.Confirmed full code status Review of Systems All systems reviewed & are unremarkable except as noted in HPI and below PFSH All Active Problems (Updated 02/17/24 @ 16:44 by Maryam Trinidad APRN) Congestive heart failure (Chronic) Discharge planning issues (Acute) On deep vein thrombosis (DVT) prophylaxis (Acute) Tobacco abuse (Acute) Pneumonia (Acute) COPD exacerbation (Acute) Noncompliance with medications (Acute) Elevated blood pressure reading (Acute) Methadone use (Acute) Hypertension (Chronic) Angioedema (Acute) Nausea & vomiting (Acute) Opiate withdrawal (Acute) Abdominal pain (Acute) Medical History (Updated 02/17/24 @ 16:44 by Maryam Trinidad APRN) Narcotic abuse in remission Diabetes HTN (hypertension) Social History Smoking/Tobacco Use Status: Current every day Tobacco Type: cigarettes Years smoked: 45 Smoking risk assessment performed?: Yes Alcohol Intake: never Drug use: Current Sobriety Substance use type: does not use Housing: homeless Do you feel safe at home: Yes Do you feel safe in your relationship?: Yes Meds Allergies and Home Medications Allergies Allergy/AdvReac Type Severity Reaction Status Date / Time Sulfa (Sulfonamide Allergy Swelling/Ed Unverified 02/17/24 16:51 Antibiotics) hakan Home Medications Medication Instructions Recorded Confirmed Type albuterol sulfate 90 mcg/actuation 2 dose inhalation Q4H PRN PRN 09/13/18 02/17/24 History aerosol inhaler (Ventolin HFA) calcium carbonate 500 mg calcium 500 mg PO DAILY 09/13/18 02/17/24 History (1,250 mg) tablet (Calcium 500) finasteride 5 mg tablet 5 mg PO DAILY 09/13/18 02/17/24 History fluticasone propionate 220 1 puff inhalation BID 09/13/18 02/17/24 History mcg/actuation HFA aerosol inhaler (Flovent HFA) gabapentin 300 mg capsule 300 mg PO Q6H 09/13/18 02/17/24 History ipratropium bromide 17 2 dose inhalation Q6H PRN PRN 09/13/18 02/17/24 History mcg/actuation HFA aerosol inhaler ammonium lactate 12 % topical cream 1 applic topical BID 02/16/24 02/17/24 History atorvastatin 80 mg tablet 80 mg PO DAILY 02/16/24 02/17/24 History benzonatate 100 mg capsule 100 mg PO Q6H 02/16/24 02/17/24 History doxycycline hyclate 100 mg capsule 100 mg PO BID 02/16/24 02/17/24 History lidocaine 4 % topical patch 1 patch topical Q24H 02/16/24 02/17/24 History (Lidocaine Pain Relief) losartan 100 1 tab PO DAILY 02/16/24 02/17/24 History mg-hydrochlorothiazide 12.5 mg tablet magnesium oxide 400 mg PO DAILY 02/16/24 02/17/24 History metoprolol tartrate 25 mg tablet 25 mg PO BID 02/16/24 02/17/24 History multivitamin (Daily Value tablet) 1 tab PO DAILY 02/16/24 02/17/24 History potassium chloride 20 mEq 20 meq PO BID 02/16/24 02/17/24 History tablet,extended release spironolactone 25 mg tablet 25 mg PO DAILY 02/16/24 02/17/24 History tadalafil 20 mg tablet 20 mg PO DAILY PRN 02/16/24 02/17/24 History buprenorphine 8 mg-naloxone 2 mg 1 film sublingual DAILY 02/17/24 02/17/24 History sublingual film furosemide 40 mg tablet 40 mg PO DAILY 02/17/24 02/17/24 History levofloxacin 750 mg tablet 750 mg PO DAILY 10 days #10 tabs 02/17/24 02/17/24 Rx omeprazole 40 mg capsule,delayed 40 mg PO DAILY 02/17/24 02/17/24 History release Exam Narrative Exam Narrative: at bedside. HENMT: Facial structures with normal appearance Eyes: Well aligned. Neuro:alert and oriented to self, person, place, time and situation. No neurological focal deficit Resp: Expiratory wheezing throughout with coughing spells Cardio: regular rhythm, S1, S2, no murmur, bilateral radial and dorsalis pedis pulses are positive GI: Abdomen is not distended, soft and non tender, bowel sounds are present : Negative Costovertebral angle tenderness Integumentary: No skin lesions or rash Extremities: strength 5/5 to bilateral lower and upper extremities Psych: RASS 0, congruent mood and normal affect. Results Labs 02/17/24 16:03 02/17/24 16:29 Labs: Laboratory Results - last 24 hr 02/17/24 16:03 WBC 7.53 RBC 4.78 Hgb 12.5 L Hct 38.2 L MCV 80 MCH 26.2 L MCHC 32.7 RDW 15.3 H Plt Count 263 MPV 9.0 Immature Gran % 0.8 Neutrophils % 71.8 Lymphocytes % 19.1 Monocytes % 8.0 Eosinophils % 0.0 Basophils % 0.3 Nucleated RBC % 0.0 Absolute Neutrophils 5.41 Absolute Lymphocytes 1.44 Absolute Monocytes 0.60 Absolute Eosinophils 0.00 Absolute Basophils 0.02 Sodium Cancelled Potassium Cancelled Chloride Cancelled Carbon Dioxide Cancelled Anion Gap Cancelled BUN Cancelled Creatinine Cancelled Est GFR (CKD-EPI 2020) Cancelled Glucose Cancelled Calcium Cancelled Total Bilirubin Cancelled AST Cancelled ALT Cancelled Alkaline Phosphatase Cancelled Total Protein Cancelled Albumin Cancelled Procalcitonin Cancelled Last Vital Signs Temp 36.5 C 02/17/24 15:16 Pulse 90 02/17/24 15:28 Resp 24 02/17/24 15:28 BP 192/92 H 02/17/24 15:28 Pulse Ox 99 02/17/24 15:28 Time Spent Time spent with Patient: >75 minutes Time was spent: preparing to see the patient(eg.review tests), obtaining and/or reviewing separately otained hiistory, ordering medications,tests, procedures, referring, communicating with other health memory care program director, indepentently interpreting results, counseling the patient and care coordination
--- NOTE | 2024-02-17 16:41 | DI.CT_ITS ---
Exam(s) CT CHEST PE CTA EXAM: CT CHEST PE CTA CLINICAL HISTORY: sob. TECHNIQUE: Imaging Protocol: Axial CT angiography was performed with multi-slice acquisition and mu lti-planar reconstructions as well as axial, coronal and sagittal MIP reconstructions. CONTRAST MATERIAL: Intravenous: Omnipaque 350 Contrast volume:100 ml COMPARISON: CR XR CHEST 2V PA LATERAL from 03/02/[address] ABDOMEN PELVIS W from 01/10/2020 CR,XR XR PORTABLE CHEST AP from 02/16/2024 CR XR PORTABLE CHEST AP from 02/17/2024 FINDINGS: Exam limited by motion. Pulmonary Arteries: No evidence of filling defect to suggest pulmonary emboli. Pulmonary arteries a re prominent. Tracheobronchial tree: No mucous plugging. Mediastinum and [place]: No dominant adenopathy or fluid collection. Pulmonary parenchyma: No consolidation or dominant measurable mass. Underlying emphysematous changes . Increased bilateral interstitial markings greater at the lung bases, consistent with CHF. Pleura: No effusion or pneumothorax. Heart: The heart is mildly dilated. Moderate coronary artery calcifications are seen. Aorta: Thoracic aorta non-dilated. No dissection. Upper abdomen: No acute findings. Bones: Bilateral shoulder prostheses create artifact. Degenerative changes in the spine. Tubes, Catheters, and Lines: None Soft tissues: Unremarkable. IMPRESSION: No evidence of pulmonary embolism. Evaluation of the pulmonary parenchyma somewhat limited due to respiratory motion. Bilateral interst itial infiltrates suspicious for CHF. RADIATION DOSE DELIVERED: Total DLP DATA REPOSITORY: All CT scans at this facility are submitted to the National Radiology Data Registry (NRDR) Dose Index Registry (DIR) with the [employer] (A[employer]). RADIATION OPTIMIZATION: All CT scans at this facility use at least one of these dose optimization te chniques: automated exposure control; mA and/or kV adjustment per patient size (includes targeted exa ms where dose is matched to clinical indication); or iterative reconstruction.
[2024-02-17 16:55] LABS: ALT 22 U/L (16-63); AST 23 U/L (15-37); Albumin 3.1 g/dL (3.4-5.0); Alkaline Phosphatase 76 U/L (46-116); BUN 10 mg/dL (7-18); Bilirubin, Total 0.5 mg/dL (0.2-1.0); CREATININE 0.9 mg/dL (0.70-1.30); Chloride 101 mmol/L (98-107); Estimated GFR 91.31 (mL/min/1.73m2); Glucose 138 mg/dL (74-106); Potassium 3.7 mmol/L (3.5-5.1); Sodium 137 mmol/L (136-145); Total Protein 7.8 g/dL (6.4-8.2)
[2024-02-17 17:07] LABS: Procalcitonin < 0.1 ng/mL
[2024-02-17 17:23] LABS: NT-proBNP 1271 pg/mL (<300)
[2024-02-17] MEDS: VANCOMYCIN/WATER (PEG) 1 GM/200 ML BAG IVPB (18:06)
[2024-02-17] MEDS: Normal Saline Flush 10 ML SYR IVP ×2 (19:36→19:59)
[2024-02-17] MEDS: Mometasone 220 MCG 14 DOSE INHALER 1 PUFF IH (19:55)
[2024-02-17] MEDS: Nicotine 21 MG/24 HR PATCH TD (19:55)
[2024-02-17] MEDS: Furosemide 40 MG/4 ML VIAL IVP (19:56)
[2024-02-17] MEDS: guaiFENesin 600 MG TABCR PO (19:57)
[2024-02-17] MEDS: Benzonatate 100 MG CAP PO (19:57)
[2024-02-17] MEDS: Metoprolol 12.5 MG TAB 25 MG PO (19:57)
[2024-02-17] MEDS: Enoxaparin 40 MG/0.4 ML SYR SC (19:57)
[2024-02-17] MEDS: Gabapentin 300 MG CAP PO (19:57)
[2024-02-17] MEDS: Potassium Chloride 20 MEQ TABCR PO (19:57)
[2024-02-17 21:35] LABS: MRSA PCR Positive (Negative)
--- NOTE | 2024-02-17 21:43 | TELEP.MEDR_ITS ---
Date of service: 02/17/24 Time of Service: 21:43 Telepharmacy Home Med Rec Allergies Allergies: Sulfa (Sulfonamide Antibiotics) Allergy (Unverified 02/17/24 16:51) Swelling/Edema Interview Person Interviewed: Patient Quality Quality of Interview/Accuracy of Medication List: Good Changes made to Home Medication List: ADDITIONS: * none DELETIONS: * none CHANGES: * none Additional Notes Additional Notes: * Patient said all his antibiotics are new and he has not had a chance to take any of them yet. Recommended Changes Recommended Changes(reason for recommendation): * none Attestation: The home medication list is now updated to the best of my knowledge and is ready to be reconciled by the provider. Please contact the TelePharmacy Medication Reconciliation Pharmacist at for any questions.
[2024-02-18] VITALS (13 sets, daily range): BP systolic 149–171; BP diastolic 75–98; PULSE 68–94; RESP 5–24; TEMP 35.9–36.7; O2SAT 91–100
--- NOTE | 2024-02-18 | DI.US_ITS ---
APPROVED REPORT EXAM: Comprehensive 2D, Doppler, and color-flow Echocardiogram Patient Location: In-Patient Room/Bed: 225 Surgical Territory Manager: Sangeeta Carmichael RDCS (AE) Indications: ?CHF, Exac of COPD, SOB, Cough, HTN, Pneumonia, Smoker Other Information Study Quality: Adequate. Technically limited study due to body habitus, inability to position patient exam done with patient in sitting position.. Conclusion Mild concentric left ventricular hypertrophy. EF biplane is 51%, visually appears 50 -55% with normal wall motion. Right ventricule not well visualized Atria are normal in size Aortic valve is sclerotic and trileaflet without stenosis or regurgitation Wall motion Left Ventricle The left ventricle is normal size. The overall left ventricular systolic function appears normal. Mi ld concentric left ventricular hypertrophy. There is normal LV segmental wall motion. There is no jerica tricular septal defect visualized. LVEF is 51%. Right Ventricle Right ventricle is not well visualized. Right ventricular systolic function could not be assessed. Atria The left atrium size is normal. Right atrium is not well visualized. The interatrial septum is intact with no evidence for an atrial septal defect. Aortic Valve The Aortic valve is sclerotic. Aortic valve is trileaflet. There is no aortic valvular stenosis. No a ortic regurgitation is present. Mitral Valve The mitral valve is normal in structure. No evidence of mitral valve stenosis. Trace mitral regurgita tion. Tricuspid Valve The tricuspid valve is normal in structure. There is no tricuspid valve stenosis. Trace tricuspid reg urgitation. Unable to assess PA pressure. Pulmonic Valve The pulmonary valve is normal in structure. There is no pulmonic valvular stenosis. Trace pulmonic re gurgitation. Great Vessels The aortic root is normal in size. Ascending aorta is not well visualized. Aortic arch is not visuali zed. The IVC collapses <50% with inspiration. Pericardium There is no pericardial effusion. 2D Dimensions IVSD d PLAX 1.34 cm M: 0.6-1.2 Ao Root d 3.67 cm M: 3.1 - 3.7 LVPW d PLAX 1.30 cm M: 0.6 - 1.2 LVID d PLAX 4.50 cm M: 4.2 - 5.8 LVDs 3.22 cm M: 2.5 - 4.0 LV EF Teichholz 55.0 % FS 28.41 % LV EDV (Teich) 92.6 mL LV ESV (Teich) 41.7 mL M-Mode TAPSE 2.28 cm (M/F) >1.7 Auto EF LV EDV A4C 141.5 mL LV EDV A2C 137.3 mL LV EDV BP 139.6 mL LV ESV A4C 72.0 mL LV ESV A2C 66.6 mL LV ESV BP 69.3 mL LVEF(%) A4C 49.1 % LVEF(%) A2C 51.5 % LVEF(%) BP 50.4 % LV SV A4C 69.5 ml LV SV A2C 70.7 ml LV SV BP 70.4 ml LV CO A4C 4.9 L/min LV CO A2C 5.1 L/min LV CO BP 5.0 L/min HR A4C 70.59 BPM HR A2C 71.86 BPM LV EDV Index (BP) LV Strain Long Pk Overal Avg (s) 13.91 LA Volume LA Length A4C 4.0 cm LA Length A2C 4.7 cm LA Area A4C s 14.49 cm2 LA Area A2C s 16.27 cm2 LA Vol A4C A-L 44.77 mL LA Vol A2C A-L 47.62 mL LA Vol Biplane A-L 50.3 mL LA Vol/BSA A4C A-L LA Vol/BSA A2C A-L LA Vol/BSA BP A-L 24.8 mL/m2 LA Vol A4C MOD 40.8 mL LA Vol A2C MOD 44.5 mL LA Vol BP MOD 45.5 mL RA Volume RA Area A4C 14.5 cm2 RA ESV A4C (A-L) 39.8mL RA Vol/BSA A4C A-L RA Length A4C 4.5 cm RA ESV A4C (MOD) 38.7mL LV Diastology MV E' medial 0.063 (>0.07 m/s) Aortic Valve AoV Vmax 1.22 m/s LVOT Vmax 0.83 m/s AoV Peak Grad 5.9 mmHg LVOT Peak Grad 2.7 mmHg AoV Area (Vmax) 2.37 cm2 LVOT VTI 0.164 m AoV VTI 0.240 m LVOT Mean Grad 1.2 mmHg AoV Mean Indra. 0.77 m/s LVOT SV 57.25 mL AoV Mean Grad 2.8 mmHg LVOT Diam s 2.10 cm AoV Area (VTI) 2.39 cm2 Velocity Ratio 0.68 Mitral Valve MV Vmax TIPS 0.79 m/s MV Mean Grad 0.9 (<2mmHg) MV VTI 0.293 m Tricuspid Valve TV S' 0.13 m/s
[2024-02-18] MEDS: Albuterol/Ipratropium 3 ML UPD VIAL UPD ×4 (00:10→18:30)
[2024-02-18] MEDS: Albuterol HFA 8 GM 60 PUFF INH IH (04:57)
[2024-02-18 06:54] LABS: Abs Immature Grans 0.15 10^3/uL (0.0-0.06); Absolute Basophil Count 0.03 10^3/uL (0.0-0.2); Absolute Lymphocyte Count 1.74 10^3/uL (1.2-3.4); Absolute Monocyte Count 0.84 10^3/uL (0.1-0.8); Basophils % 0.3; HCT 39.4 % (40.0-50.0); HGB 12.8 g/dL (13.5-17.5); Immature Grans % 1.4; Lymphocytes % 15.9; MCH 25.5 pg (27.0-33.0); MCHC 32.5 % (32.0-36.0); MCV 79 fL (80-95); MPV 9.3 fL (8.0-11.0); Monocytes % 7.7; Neutrophils % 74.7; Platelet Count 271 10^3/uL (130-400); RBC 5.01 10^6/uL (4.36-5.78); RDW 15.3 % (11.8-14.1); RDW-SD 43.8 fL; WBC 10.97 10^3/uL (4.4-10.8)
[2024-02-18 06:59] LABS: Absolute Neutrophil Count 8.19 10^3/uL (1.2-6.7)
[2024-02-18 07:13] LABS: BUN 14 mg/dL (7-18); Chloride 101 mmol/L (98-107); Estimated GFR 80.47 (mL/min/1.73m2); Glucose 163 mg/dL (74-106); Magnesium 2.1 mg/dL (1.8-2.4); Potassium 3.6 mmol/L (3.5-5.1); Sodium 139 mmol/L (136-145)
[2024-02-18] MEDS: Mometasone 220 MCG 14 DOSE INHALER 1 PUFF IH ×2 (07:50→19:55)
[2024-02-18] MEDS: Metoprolol 12.5 MG TAB 25 MG PO ×2 (08:32→20:07)
[2024-02-18] MEDS: Finasteride 5 MG TAB PO (08:32)
[2024-02-18] MEDS: Benzonatate 100 MG CAP PO ×2 (08:33→13:28)
[2024-02-18] MEDS: predniSONE 20 MG TAB 40 MG PO (08:33)
[2024-02-18] MEDS: hydroCHLOROthiazide 12.5 MG TAB PO (08:33)
[2024-02-18] MEDS: Magnesium Oxide 400 MG TAB PO (08:33)
[2024-02-18] MEDS: guaiFENesin 600 MG TABCR PO ×2 (08:33→20:08)
[2024-02-18] MEDS: Atorvastatin 40 MG TAB 80 MG PO (08:34)
[2024-02-18] MEDS: Potassium Chloride 20 MEQ TABCR PO ×2 (08:34→20:08)
[2024-02-18] MEDS: Losartan 50 MG TAB 100 MG PO (08:34)
[2024-02-18] MEDS: Spironolactone 25 MG TAB PO (08:34)
[2024-02-18] MEDS: Enoxaparin 40 MG/0.4 ML SYR SC (08:35)
[2024-02-18] MEDS: Gabapentin 300 MG CAP PO ×3 (08:35→20:08)
[2024-02-18] MEDS: Buprenorphine/Naloxone 4 mg/1 mg FILM 1 EACH SL ×2 (09:33→17:08)
[2024-02-18] MEDS: Furosemide 20 MG/2 ML VIAL IVP ×2 (09:33→16:15)
[2024-02-18] MEDS: Normal Saline Flush 10 ML SYR IVP ×5 (09:34→20:09)
--- NOTE | 2024-02-18 10:10 | PT.INIE ---
PT Notes Visit Reasons: [facility] Physical Therapy Inpatient Initial Evaluation Date: 02/18/2024 Referring Doctor: Tre Trinidad APRN PT Orders: PT CONSULT: Eval for assistive device Precautions: Fall. Contact precautions in place. Activity as tolerated. Patient Profile/Admitting Diagnosis: Jonathan is a 69-year-old male who presented to the ED on 324 due to worsening shortness of breath. Patient is admitted for management of pneumonia, COPD exacerbation, methadone use, hypertension, tobacco abuse, and CHF. PMHX: All Active Problems (Updated 02/17/24 @ 16:44 by Tre Trinidad APRN) Congestive heart failure (Chronic) Discharge planning issues (Acute) On deep vein thrombosis (DVT) prophylaxis (Acute) Tobacco abuse (Acute) Pneumonia (Acute) COPD exacerbation (Acute) Noncompliance with medications (Acute) Elevated blood pressure reading (Acute) Methadone use (Acute) Hypertension (Chronic) Angioedema (Acute) Nausea & vomiting (Acute) Opiate withdrawal (Acute) Abdominal pain (Acute) Medical History (Updated 02/17/24 @ 16:44 by Tre Trinidad APRN) Narcotic abuse in remission Diabetes HTN (hypertension) Social History/Home Situation: Lives with family in a private home. Independent with all aspects of ADLs prior to surgery. Equipment Owned/DME: SPC, FWW Subjective: Agreeable to working with PT to work on leg strength and balance. Patient indicated that he has had 3-4 falls in the past year. Resistant to using the walker initially but was amenable to trying it out later in the eval. Objective: General Observation: In paper clothes. TUMBLERS SUPERVISOR Stormy present in room for the majority of the evalaution. Mental Status: Alert and oriented as to person, place, time, and purpose. Able to pay attention, focus, and respond appropriately. Pain: Reported chronic back pain from his scoliosis Vital Signs: Closely monitored by nursing staff, TUMBLERS SUPERVISOR Stormy measuring VS when PT came ROM: Right Upper Extremity: Shoulder Flexion WFL. Shoulder abduction WFL. Elbow flexion WFL. Wrist flexion WFL. Functional opening and closing of hand WFL. Left Upper Extremity: Shoulder Flexion WFL. Shoulder abduction WFL. Elbow flexion WFL. Wrist flexion WFL. Functional opening and closing of hand WFL. Right Lower Extremity: Hip flexion WFL. Hip abduction WFL. Knee flexion WFL. Ankle dorsiflexion WFL. Ankle plantarflexion WFL. Left Lower Extremity: Hip flexion WFL. Hip abduction WFL. Knee flexion WFL. Ankle dorsiflexion WFL. Ankle plantarflexion WFL. Strength: Right Upper Extremity: Shoulder flexors 4/5. Shoulder abductors 4/5. Elbow flexors 4/5. Elbow extensors 4/5. Ferry Engineer strong. Left Upper Extremity: Shoulder flexors 4/5. Shoulder abductors 4/5. Elbow flexors 4/5. Elbow extensors 4/5. Ferry Engineer strong. Right Lower Extremity: Hip flexors 4-/5. Hip abductors 4-/5. Knee flexors 4-/5. Knee extensors 4-/5. Ankle dorsiflexors 4-/5. Ankle plantarflexors 4-/5. Left Lower Extremity: Hip flexors 4-/5. Hip abductors 4-/5. Knee flexors 4-/5. Knee extensors 4-/5. Ankle dorsiflexors 4-/5. Ankle plantarflexors 4-/5. Bed Mobility/Transfers: Minimal cueing provided for use of B hands as needed for support, movement sequence, AD management, and posture to reduce fall risk and minimize pain report Sit to stand modified independent Stand to sit modified independent Bed to toilet modified independent with FWW Toilet to bedside chair modified independent with FWW Gait: Without front-wheeled walker, patient was able to walk from bedside to about 30 feet with excessive trunk flexion and decreased gait speed, SOB evident. With front-wheeled walker, patient was able to cover same distance but with a more erect trunk and with no shortness of breath. Stand by assist provided to monitor respose to increasing activity level. Balance: Static Sitting: Normal Dynamic Sitting: Normal Static Standing: Fair Dynamic Standing: Fair Special Tests: Mobility Limitations Standardized Measure [facility] AM-PAC 6 clicks Basic Mobility Inpatient Short Form: Raw Score: 24 CMS Score: 0% deficit 4-Stage Balance Test: Feet together <10 seconds Semi-tandem <10 seconds Full tandem <10 seconds One-legged stance <10 seconds Informed Consent/Education: Patient was instructed in purpose of PT consult and plan of care. Agreeable to proceed with established PT POC to achieve personal goals. ASSESSMENT: Patient more stable, erect and less short of breath with use of FWW. He will benefit from progressive strengthening, balance, and functioanl mobility training to increase his ability to remain safe at home. Patient presents with clinical signs and symptoms consistent with current/admitting diagnoses that have resulted to mobility limitations, gait instability, generalized weakness, and overall ADL decline as demonstrated by the following impairment level findings: 1. Decreased strength to B UE/LE major muscle groups 2. Impaired standing balance 3. Impaired activity tolerance 4. Shortness of breath 5. Minimal swelling in L leg Impairments are contributing to the following functional limitations: 1. Difficulty with ambulation without assistive device 2. Increased completion time for mobility ADL performance 3. Increased risk for falls 4. Difficulty with managing steps alone safely Patient is assessed as a 59466 moderate complexity based on the following: History: 69-year-old male with past medical history as indicated above Examination: Demonstrable impairment in strength, balance, and mobility level with underlying impairments and functional limitations as exhibited above Presentation: Evolving Decision Makin moderate complexity Goals: Goals X1 week 1. Independent gait on level surface with use of FWW for at least 300 feet without report of pain nor dyspnea 2. Independent stair negotiation while holding onto B rails for at least 6 steps without report of pain nor dyspnea 3. Independent with home exercise program 4. Good static and dynamic standing balance/tolerance Plan of Care/Treatment Plan: 1-2x/day, 7 days/week x 1 week. Plan of care has been reviewed with the MAGAZINE FILLER providing the service under Physical Therapy direction. Initiate Physical Therapy intervention for pain management as needed, strengthening, bed mobility, transfers, gait, stairs, balance training, and use of assistive device. DISCHARGE RECOMMENDATIONS: [] Home with no services [] [X] Home with services. Patient will benefit from home health PT services in order to progress mobility level using least restrictive assistive ambulatory device, assess home safety, identify additional equipment needs, and establish a functional maintenance program that will increase ability of patient to remain at home. [] Home with outpatient PT [] [] SNF for continued rehabilitation [] [] Shelter Care [] [] SNF versus LTC based on ability to participate and progress [] TREATMENT CODE/TIME: 9716 2 x 20 minutes for 1 unit, 9753 0 x 17 minutes for 1 unit (10:51-11:28). Thank you for the opportunity to participate in the care of this patient. Kerrie Park PT, DPT, CLT [facility] [place], [place]
--- NOTE | 2024-02-18 10:47 | PGE_ITS ---
Date of Service Date of service: 02/18/24 Time of Service: 12:15 Assessment and Plan Assessment and plan (1) Pneumonia: Status: Acute Assessment and plan: No O2 supplementation required Continue Doxycycline MRSA PCR is positive; will start bactroban to nares Strep pneumoniae, legionella, mycoplasma pneumoniae testing ; results pending but most likely has no pneumonia as procal is negative w/o fever or obvious leukocytosis Continue Mucinex Continue Benzonatate (2) COPD exacerbation: Status: Acute Assessment and plan: Continue doxycycline IV Continue nebulizers PRN and scheduled Continue Fluticasone Contiue oral prednisone and as above (3) Methadone use: Status: Acute Assessment and plan: Denies using methadone but on beprenorphine 8/ naloxone 2 in 2 doising /day , will continue (4) Hypertension: Status: Chronic Assessment and plan: Continue Losartan, HCTZ, Metoprolol (5) Tobacco abuse: Status: Acute Assessment and plan: Continue Nicotine patch (6) Congestive heart failure: Status: Chronic Assessment and plan: Echocardiogram: LVEF 51%, unable to evaluate RSVP or PA pressure BNP 1271 on admit, will transition from IV lasix to oral lasix in AM (7) On deep vein thrombosis (DVT) prophylaxis: Status: Acute Assessment and plan: Continue Lovenox SC (8) Discharge planning issues: Status: Acute Assessment and plan: Homeless , CM to f/u discussed with Dr. Cox Subjective Subjective Patient reports: no new complaints, feels better, tolerating liquids well, tolerating a regular diet, voiding w/o difficulty, flatus, bowel movement and shortness of breath (with coughing spells ); denies diarrhea, nausea, vomiting or fever Exam Narrative Exam Narrative: Neuro:alert and oriented to self, person, place, time and situation. No neurological focal deficit Resp: Clear lung w decreased breath sounds at the basis Cardio: regular rhythm, S1, S2,positive radial and pedal pulses GI: Abdomen is not distended, soft and non tender, bowel sounds are present : Negative Costovertebral angle tenderness Integumentary: No skin lesions or rash Extremities: strength 5/5 to bilateral lower and upper extremities Psych: RASS 0, congruent mood and normal affect. Objective Last Vital Signs Temp 36.3 C L 02/18/24 08:13 Pulse 81 02/18/24 08:13 Resp 18 02/18/24 08:13 BP 156/79 H 02/18/24 08:13 Pulse Ox 96 02/18/24 08:13 Laboratory Results - last 24 hr 02/17/24 02/17/24 02/17/24 16:03 16:29 17:50 WBC 7.53 RBC 4.78 Hgb 12.5 L Hct 38.2 L MCV 80 MCH 26.2 L MCHC 32.7 RDW 15.3 H Plt Count 263 MPV 9.0 Immature Gran % 0.8 Neutrophils % 71.8 Lymphocytes % 19.1 Monocytes % 8.0 Eosinophils % 0.0 Basophils % 0.3 Nucleated RBC % 0.0 Absolute Neutrophils 5.41 Absolute Lymphocytes 1.44 Absolute Monocytes 0.60 Absolute Eosinophils 0.00 Absolute Basophils 0.02 Sodium Cancelled 137 Potassium Cancelled 3.7 Chloride Cancelled 101 Carbon Dioxide Cancelled 22.0 Anion Gap Cancelled 14.0 H BUN Cancelled 10 Creatinine Cancelled 0.9 Est GFR (CKD-EPI 2020) Cancelled 91.31 Glucose Cancelled 138 H Calcium Cancelled 9.0 Magnesium Total Bilirubin Cancelled 0.5 AST Cancelled 23 ALT Cancelled 22 Alkaline Phosphatase Cancelled 76 NT-Pro-B Natriuret Pep 1271 H Total Protein Cancelled 7.8 Albumin Cancelled 3.1 L Procalcitonin Cancelled < 0.1 MRSA (TEM-PCR) Positive A 02/18/24 06:15 WBC 10.97 H RBC 5.01 Hgb 12.8 L Hct 39.4 L MCV 79 L MCH 25.5 L MCHC 32.5 RDW 15.3 H Plt Count 271 MPV 9.3 Immature Gran % 1.4 Neutrophils % 74.7 Lymphocytes % 15.9 Monocytes % 7.7 Eosinophils % 0.0 Basophils % 0.3 Nucleated RBC % 0.0 Absolute Neutrophils 8.19 H Absolute Lymphocytes 1.74 Absolute Monocytes 0.84 H Absolute Eosinophils 0.00 Absolute Basophils 0.03 Sodium 139 Potassium 3.6 Chloride 101 Carbon Dioxide 25.0 Anion Gap 13.0 H BUN 14 Creatinine 1.0 Est GFR (CKD-EPI 2020) 80.47 Glucose 163 H Calcium 9.0 Magnesium 2.1 Total Bilirubin AST ALT Alkaline Phosphatase NT-Pro-B Natriuret Pep Total Protein Albumin Procalcitonin MRSA (TEM-PCR) Time Spent with Patient Time Spent with Patient: >50 minutes Time was spent: preparing to see the patient(eg.review tests), obtaining and/or reviewing separately otained hiistory, ordering medications,tests, procedures, referring, communicating with other health child day care provider, indepentently interpreting results, counseling the patient and care coordination
[2024-02-18 11:11] LABS: Iron 47 ug/dL (65-175); Total Iron Binding Capacity 236 ug/dL (250-450); Transferrin Sat 20 % (20-55)
--- NOTE | 2024-02-18 11:28 | INITIAL_ITS ---
Date of service: 02/18/24 Time of Service: 11:28 Care Management Initial Assmt Initial Assessment REASON FOR HOSPITALIZATION:: chf PREVIOUS FUNCTIONAL STATUS/SOCIAL/FAMILY SUPPORTS:: David is currently staying at the homeless residential in [facility] with one of his dogs. His and son are staying with a friend with their other 2 dogs. David is not currently employed. He is independent at baseline and does not receive any community services outside of residential housing. CURRENT FUNCTIONAL STATUS:: David was sitting up in bed visiting with his family when CM met with him. He was pleasant and engaged well with CM. David stated that he is concerned that he may not be able to return to the residential when discharged because he will have been gone for several days. CM stated that she would contact the residential to verify that he was, in fact, in the hospital. CM contacted Radha who is in charge of the residential. She assured CM that having been hospitalized would not be a barrier for David to return to the residential, however he must be able to care for himself and his dog. ADVANCE DIRECTIVES:: none on file Has patient been provided with info about the portal/API?: Yes Did the patient sign up for the portal?: No CODE STATUS:: Full Code INSURANCE COVERAGE / FINANCIAL ISSUES:: Medicare CURRENT HOME/COMMUNITY SERVICES/EQUIPMENT:: staying in the new residential in [facility] PRIMARY CARE PHYSICIAN:: Pippa Madden POTENTIAL DISCHARGE NEEDS:: follow up with PCP and plan of care PATIENT/FAMILY EDUCATION NEEDS:: Review of discharge instructions, activity, limitations, follow up plan, discuss Ask Me Three TRANSPORTATION:: via private vehicle with family PLAN:: Anticipate Jonathan will be discharged home with no new services. He will follow up with his PCP and plan of care and transport with family. CM will follow and continue to assess for discharge needs. PFSH All Active Problems (Updated 02/17/24 @ 16:44 by Maryam Trinidad APRN) Congestive heart failure (Chronic) Discharge planning issues (Acute) On deep vein thrombosis (DVT) prophylaxis (Acute) Tobacco abuse (Acute) Pneumonia (Acute) COPD exacerbation (Acute) Noncompliance with medications (Acute) Elevated blood pressure reading (Acute) Methadone use (Acute) Hypertension (Chronic) Angioedema (Acute) Nausea & vomiting (Acute) Opiate withdrawal (Acute) Abdominal pain (Acute) Medical History (Updated 02/17/24 @ 16:44 by Maryam Trinidad APRN) Narcotic abuse in remission Diabetes HTN (hypertension) Social History Smoking/Tobacco Use Status: Current every day Tobacco Type: cigarettes Years smoked: 45 Smoking risk assessment performed?: Yes Alcohol Intake: never Drug use: Current Sobriety Substance use type: does not use Housing: homeless Do you feel safe at home: Yes Do you feel safe in your relationship?: Yes SDOH(Care Management) Screening Will the Patient Participate in the Screening?: Yes Do you worry about having a steady place to live?: yes In the past 12 months, have you had to go without electric, gas, oil or water in your home?: yes Have you or anyone in your house had to go without enough food to eat?: yes Has lack of transportation kept you from medical appointments or from doing things needed for daily living?: yes Has anyone in your support network made you feel unsafe for any reason?: no Social Determinants of Health Comments(SDOH Details): living in homeless residential Health Related Social Needs Health related social needs: housing instability, housed, with risk of homelessness(Z59.811), food insecurity(Z59.41), transportation insecurity(Z59.82) and material hardship(utilities)(Z59.87)
[2024-02-18] MEDS: Mupirocin 2% Oint. 22 GM TUBE TP ×2 (13:28→20:07)
--- NOTE | 2024-02-18 14:46 | PT.INTREAT ---
PT Notes Visit Reasons: Pnuemonia Date: 02/18/24 PRECAUTIONS: Contact precaution in place SUBJECTIVE: Pt in recliner when approached for therapy this afternoon. OBJECTIVE: ? PAIN: yes scoliotic pain 05/11 right hip and LE VITALS: monitored by nursing ? Therapeutic Activities [id number]: Direct one-on-one instruction in dynamic activities to improve functional performance. ?? BED MOBILITY/TRANSFERS? Rolling L/R: independent Supine-sit: ?independent ? Sit-supine: independent? Sit-stand: ?independent? Stand-sit: ?independent? Bed-Chair:? independent ? Chair-bed: independent Provided skilled cues and instruction on performance and technique throughout. Gait Training [id number]: Direct one-on-one instruction and skilled instruction in: Employing an assistive device Movement sequencing Turning and movement with proper form Provided verbal cues for equipment management and technique Provided instruction in gait pattern Patient education regarding pacing and breathing techniques to maximize activity tolerance? GAIT? Assistive Device: ?FWW? Weight bearing: FWB Assist: Supervision? Distance:??100', 200'? Deviation: ?stoop forward posture, slow tray speed, low step height and short step length.? Therapeutic Exercises [id number] : Direct one-on-one instruction in therapeutic exercises to develop strength, endurance, range of motion and flexibility. Provided skilled instruction in proper exercise performance Provided skilled manual cues to facilitate proper muscle recruitment and/or form: Access Code: [email or web address] URL: [email or web address] Date: 02/18/2024 Prepared by: Arnold Park Exercises - Seated Hip Flexion March with Ankle Weights - 1 x daily - 7 x weekly - 1 sets - 10 reps - Seated Long Arc Quad with Ankle Weight - 1 x daily - 7 x weekly - 1 sets - 10 reps - Sit to Stand with Counter Support - 1 x daily - 7 x weekly - 1 sets - 10 reps - Standing Heel Raise with Support - 1 x daily - 7 x weekly - 1 sets - 10 reps - Standing Ankle Dorsiflexion with Chair Support - 1 x daily - 7 x weekly - 1 sets - 10 reps - Standing March with Counter Support - 1 x daily - 7 x weekly - 1 sets - 10 reps - Standing Hip Abduction with Counter Support - 1 x daily - 7 x weekly - 1 sets - 10 reps - Standing Hip Extension with Counter Support - 1 x daily - 7 x weekly - 1 sets - 10 reps - Mini Squat with Counter Support - 1 x daily - 7 x weekly - 1 sets - 10 reps ASSESSMENT:?Pt having SOB at 100' requiring standing rest break, able to continue to get back to pt room after resting. PLAN: Continue with balance training, global strengthening and general conditioning for improved safety, mobility and activity tolerance until pt is ready for DC. TREATMENT CODE/TIME: 49507y2, [id number] 25mins (2:45-3:10pm)
[2024-02-18] MEDS: DOXYCYCLINE 100 MG in Normal Saline 100 ML IVPB (16:15)
[2024-02-18 17:52] LABS: Legionella Ag Detection Urine Negative (Negative)
[2024-02-18] MEDS: Docusate Sodium 100 MG CAP PO (20:08)
[2024-02-18] MEDS: Benzonatate 100 MG CAP 200 MG PO (20:08)
[2024-02-18] MEDS: Acetaminophen 325 MG TAB PO (20:32)
[2024-02-19] VITALS (9 sets, daily range): BP systolic 154–167; BP diastolic 80–86; PULSE 63–90; RESP 2–20; TEMP 36; O2SAT 94–100
[2024-02-19] MEDS: Albuterol/Ipratropium 3 ML UPD VIAL UPD ×3 (00:02→11:35)
[2024-02-19] MEDS: Acetaminophen 325 MG TAB PO (00:25)
[2024-02-19] MEDS: DOXYCYCLINE 100 MG in Normal Saline 100 ML IVPB (03:42)
[2024-02-19] MEDS: Normal Saline Flush 10 ML SYR IVP ×3 (03:42→07:37)
[2024-02-19] MEDS: Albuterol HFA 8 GM 60 PUFF INH IH (04:36)
[2024-02-19] MEDS: Buprenorphine/Naloxone 4 mg/1 mg FILM 1 EACH SL (06:03)
[2024-02-19 06:15] LABS: Abs Immature Grans 0.26 10^3/uL (0.0-0.06); Absolute Basophil Count 0.04 10^3/uL (0.0-0.2); Absolute Lymphocyte Count 2.06 10^3/uL (1.2-3.4); Absolute Monocyte Count 1.27 10^3/uL (0.1-0.8); Absolute Neutrophil Count 9.34 10^3/uL (1.2-6.7); Basophils % 0.3; HCT 37.6 % (40.0-50.0); HGB 12.1 g/dL (13.5-17.5); Lymphocytes % 15.9; MCH 25.5 pg (27.0-33.0); MCHC 32.2 % (32.0-36.0); MCV 79 fL (80-95); MPV 9.4 fL (8.0-11.0); Monocytes % 9.8; Platelet Count 287 10^3/uL (130-400); RBC 4.74 10^6/uL (4.36-5.78); RDW 15.5 % (11.8-14.1); WBC 12.97 10^3/uL (4.4-10.8)
[2024-02-19 06:24] LABS: Anion Gap 9.9 mmol/L (3-11); BUN 26 mg/dL (7-18); CO2 27.1 mmol/L (21.0-32.0); CREATININE 1.3 mg/dL (0.70-1.30); Calcium 8.5 mg/dL (8.5-10.1); Chloride 100 mmol/L (98-107); Estimated GFR 58.73 (mL/min/1.73m2); Glucose 156 mg/dL (74-106); Magnesium 2.1 mg/dL (1.8-2.4); Potassium 3.5 mmol/L (3.5-5.1); Sodium 137 mmol/L (136-145)
[2024-02-19] MEDS: Enoxaparin 40 MG/0.4 ML SYR SC (07:38)
[2024-02-19] MEDS: Metoprolol 12.5 MG TAB 25 MG PO (07:39)
[2024-02-19] MEDS: Gabapentin 300 MG CAP PO ×2 (07:40→13:46)
[2024-02-19] MEDS: Benzonatate 100 MG CAP 200 MG PO (07:40)
[2024-02-19] MEDS: guaiFENesin 600 MG TABCR PO (07:41)
[2024-02-19] MEDS: hydroCHLOROthiazide 12.5 MG TAB PO (07:41)
[2024-02-19] MEDS: predniSONE 20 MG TAB 40 MG PO (07:42)
[2024-02-19] MEDS: Losartan 50 MG TAB 100 MG PO (07:42)
[2024-02-19] MEDS: Atorvastatin 40 MG TAB 80 MG PO (07:42)
[2024-02-19] MEDS: Potassium Chloride 20 MEQ TABCR PO (07:43)
[2024-02-19] MEDS: Furosemide 20 MG TAB 40 MG PO (07:43)
[2024-02-19] MEDS: Finasteride 5 MG TAB PO (07:44)
[2024-02-19] MEDS: Docusate Sodium 100 MG CAP PO (07:44)
[2024-02-19] MEDS: Spironolactone 25 MG TAB PO (07:44)
[2024-02-19] MEDS: Magnesium Oxide 400 MG TAB PO (07:45)
[2024-02-19] MEDS: Mupirocin 2% Oint. 22 GM TUBE TP ×2 (07:47→13:46)
--- NOTE | 2024-02-19 08:27 | PDOC.CMPRO ---
Date of service: 02/19/24 Time of Service: 08:27 Care Management Progress Note Progress Note Text Progress Note Text: S/O: A: Al is a 69 year old man admitted on 02/17/24 with pneumonia and CHF. P:Anticipate Jonathan will be discharged home with no new services. He will follow up with his PCP and plan of care and transport with family. CM will follow and continue to assess for discharge needs. SDOH(Care Management) Screening Will the Patient Participate in the Screening?: Yes Do you worry about having a steady place to live?: yes In the past 12 months, have you had to go without electric, gas, oil or water in your home?: yes Have you or anyone in your house had to go without enough food to eat?: yes Has lack of transportation kept you from medical appointments or from doing things needed for daily living?: yes Has anyone in your support network made you feel unsafe for any reason?: no Social Determinants of Health Comments(SDOH Details): living in homeless alf Health Related Social Needs Health related social needs: housing instability, housed, with risk of homelessness(Z59.811), food insecurity(Z59.41), transportation insecurity(Z59.82) and material hardship(utilities)(Z59.87)
[2024-02-19] MEDS: Mometasone 220 MCG 14 DOSE INHALER 1 PUFF IH (09:06)
--- NOTE | 2024-02-19 12:29 | PT.INTREAT ---
Date of service: 02/19/24 Time of Service: 08:40 PT Notes Visit Reasons: Pnuemonia Inpatient Physical Therapy Treatment Note [facility] Date: 02/19/2024 PRECAUTIONS: Fall, Contact precautions and Activity as tolerated. SUBJECTIVE: Stated he is doing okay today. Did request that I sit so he could explain his past and current situation. Prefers to use a cane rather than a walker. Can't go up and down stairs very well with a walker. Does get SOB with ambulation. OBJECTIVE: Found patient standing at window without assistive device in room, when I arrived to see him. ? PAIN: Back bothers him so he walks flexed forward. Right knee has been painful, thinks he will need to have a revision of TKA performed. VITALS: O2 noted to stay between 92 -97% on room air with HR 67-88 b/m ? Therapeutic Activities (57795z5): Direct one-on-one instruction in dynamic activities to improve functional performance. ? BED MOBILITY/TRANSFERS? Rolling L/R: I Supine-sit: I ? Sit-supine: I? Sit-stand: SBA? Stand-sit: SBA? Provided skilled cues and instruction on performance and technique throughout. ? GAIT? Assistive Device: Refused use of walker ? Weight bearing: full Assist: CGA? Distance:? 180ft within room? Deviation: Forward gait with SOB at conclusion of walk.? Therapeutic Exercises (27087p6): Direct one-on-one instruction in therapeutic exercises to develop strength, endurance, range of motion and flexibility. Patient showed me the HEP he was issued yesterday by [facility] and indicated he did do some of the exercises yesterday. Anterior cabral region was sore last night from doing so many toe raises. ? Exercises ? -sit to stand x10 -LAQs with 3# ankle weights 5x2 and 10x1 -hamstring curls with red t-band 10x2 -standing heel raises x10 -seated toe raises x10 -seated marching with 3# ankle weights x10 Provided skilled instruction in proper exercise performance Provided skilled manual cues to facilitate proper muscle recruitment and/or form ASSESSMENT:? Tolerated activities well, but did get irritated several times with what I was asking him to do. Apologized for being short with me at at conclusion of session. PLAN: Continue to advance ambulation distance and exercises as able to tolerate. Possibly try stairs prior to discharge. TREATMENT CODE/TIME: [id number] and [id number], 8:40 to 9:15 (35')
--- NOTE | 2024-02-19 12:41 | W.PM.DS.N ---
Date of service: 02/19/24 Time of Service: 12:41 DS: Diagnosis Discharge Diagnosis (1) Pneumonia: Status: Acute (2) COPD exacerbation: Status: Acute (3) Methadone use: Status: Acute (4) Hypertension: Status: Chronic (5) Tobacco abuse: Status: Acute (6) Congestive heart failure: Status: Chronic Discharge Plan Disposition Patient Disposition: Home W/Home Health Services Condition: Stable Discharge Details Reason For Visit: Pnuemonia Admit Date/Time: 02/17/24 16:05 Admit Provider: Ethan Cox Attending Provider: Ethan Cox Primary Care Provider: Pippa Madden Hospital Course Hospital Course: This is a 69-year-old male patient with a past medical history significant for COPD ongoing tobacco abuse 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 Found to have COPD exacerbation he ultimately left AGAINST MEDICAL ADVICE. He returned the following day and now agreeable to admission. His workup was concerning for COPD D exacerbation and bacterial pneumonia. He was started on steroids and broad-spectrum antibiotics to cover for healthcare associated pneumonia as he was hospitalized within the last month for same symptoms. He was admitted under hospitalist services. He did have a CAT scan as part of his emergency workup which was negative for pulmonary embolism. Evaluation was somewhat limited due to respiratory motion but was felt to have bilateral interstitial infiltrates most suspicious for heart failure. He was given IV Lasix and echocardiogram did show normal systolic function and wall motion with a EF of 50%. Procalcitonin was less than 0.1 white count initially was normal but did climb to 12.9 this was thought to be secondary to steroid use. He was quickly weaned off oxygen and had no oxygen requirements. Antibiotic therapy down stepped and he will be discharged to home on doxycycline to complete a 5-day course. He will also be placed on a slow steroid taper. Smoking cessation was discussed and he did request nicotine patches which were provided. He is eating and drinking. Still with some increased exercise intolerance from baseline so physical therapy was requested to evaluate and has recommendations for home health physical therapy. He is being discharged to home with home health physical therapy he should resume his other medications as previously directed. discussed with DR Cox Home Meds and New Rx's Prescriptions: New prednisone 10 mg tablet See Taper PO DAILY Qty: 60 0RF Taper: Prednisone 10mg taper 40 mg Daily for 3 Days and 0 Hour 30 mg Daily for 3 Days and 0 Hour 20 mg Daily for 3 Days and 0 Hour 10 mg Daily for 3 Days and 0 Hour 5 mg Daily for 3 Days and 0 Hour Rx Instructions: see taper instructions TAPER: 40 mg daily for 3 Days; 30 mg daily for 3 Days; 20 mg daily for 3 Days; 10 mg daily for 3 Days; 5 mg daily for 3 Days doxycycline hyclate 100 mg capsule 100 mg PO BID Qty: 7 0RF nicotine 21-14-7 mg/24 hr patch, TD daily, sequential See Rx Instructions .ROUTE .COMPLEX Qty: 56 0RF Rx Instructions: apply 1-21 mg NICOTINE PATCH daily for 28 days; follow with 1-14 mg PATCH daily for 14 days, then 1-7mg PATCH daily for 14 days Continued benzonatate 100 mg capsule 100 mg PO Q6H doxycycline hyclate 100 mg capsule 100 mg PO BID magnesium oxide 400 mg magnesium capsule 400 mg PO DAILY metoprolol tartrate 25 mg tablet 25 mg PO BID Patient Comments: TAKE ONE TABLET BY MOUTH TWICE DAILY spironolactone 25 mg tablet 25 mg PO DAILY Patient Comments: TAKE ONE TABLET BY MOUTH ONCE DAILY lidocaine [Lidocaine Pain Relief] 4 % adhesive patch,medicated 1 patch TOPICAL Q24H Patient Comments: apply 1 patch to skin as needed Externally Once a day 30 days potassium chloride 20 mEq tablet extended release 20 meq PO BID Patient Comments: TAKE ONE TABLET BY MOUTH TWICE DAILY ammonium lactate 12 % cream 1 applic TOPICAL BID Patient Comments: Apply topically as needed for Dry Skin. atorvastatin 80 mg tablet 80 mg PO DAILY Patient Comments: TAKE ONE TABLET BY MOUTH ONCE DAILY losartan-hydrochlorothiazide 100-12.5 mg tablet 1 tab PO DAILY Patient Comments: TAKE ONE TABLET BY MOUTH ONCE DAILY multivitamin [Daily Value] Tablet 1 tab PO DAILY tadalafil 20 mg tablet 20 mg PO DAILY PRN Patient Comments: TAKE ONE TABLET BY MOUTH DAILY NEEDED levofloxacin 750 mg tablet 750 mg PO DAILY 10 Days Qty: 10 0RF buprenorphine-naloxone 8-2 mg film 1 film sublingual DAILY omeprazole 40 mg capsule,delayed release(DR/EC) 40 mg PO DAILY furosemide 40 mg tablet 40 mg PO DAILY calcium carbonate [Calcium 500] 500 mg calcium (1,250 mg) Tablet 500 mg PO DAILY Rx Instructions: unknown dose gabapentin 300 mg Capsule 300 mg PO Q6H fluticasone propionate [Flovent HFA] 220 mcg/actuation Hfa Aerosol Inhaler 1 puff INHALATION BID albuterol sulfate [Ventolin HFA] 90 mcg/actuation Hfa Aerosol Inhaler 2 dose Inhalation Q4H PRN PRN finasteride 5 mg Tablet 5 mg PO DAILY ipratropium bromide 17 mcg/actuation Hfa Aerosol Inhaler 2 dose Inhalation Q6H PRN PRN Discharge Instructions Instructions: COPD (Chronic Obstructive Pulmonary Disease) (DC), Pneumonia (DC) Additional Instructions: taper steroids as directed take antibiotics as prescribed even if you feel better. Stand Alone Forms: Nursing Discharge Form Referrals: Opal Jackson [[facility]ISTER[facility]URSE] - 02/24/24 12:40 pm Pippa Madden [Primary Care Provider] - Activity:: Activity as Tolerated Equipment/Supplies:: No Equipment Needed Diet:: As Tolerated Discharge Orders Discharge Orders: Discharge Order (Routine); Ordered 02/19/24 Ordered By: Destiny Hoover Discharge Data Discharge Date/Time-TO BE ENTERED AT DEPARTURE: 02/19/24 15:23 DS: Summary Time Spent with Patient providing and/or coordinating discharge services: Greater than 30 minutes Status at Discharge Functional status at discharge: uses cane/walker Overall status at discharge: patient is progressing back to baseline Mental Status: mental status grossly normal Speech and Movement: speech and movement normal Mood: congruent mood Affect: normal affect Quality:SDOH Health Related Social Needs: Health related social needs risk of homeless, food insecurity, transpo insecurity, material hardship Exam Narrative Exam Narrative: Elderly gentleman of stated age in no acute distress head is atraumatic eyes noninjected nonicteric EOMs intact oral mucosas moist neck is supple full range of motion with no JVD respirations are even and unlabored he does have a moist congested cough. He is not raising sputum he has expiratory wheezing throughout his abdomen is soft nontender cardiovascular regular rate and rhythm moves all extremities he has no peripheral edema abdomen is benign Psych Mental Status: mental status grossly normal Speech and Movement: speech and movement normal Mood: congruent mood Affect: normal affect DS: Data Vitals/I&O Vitals and I&O: Vital Signs Temperature 36 C L 02/19/24 07:08 Temperature Source Tympanic 02/19/24 07:08 Pulse 71 02/19/24 11:40 Pulse Rhythm Regular 02/19/24 08:23 Respiratory Rate 18 02/19/24 11:35 Respiratory Effort Normal, Non-Labored 02/19/24 08:23 Respiratory Depth Shallow 02/19/24 08:23 Respiratory Pattern Normal 02/19/24 08:23 Blood Pressure 158/80 H 02/19/24 07:08 Blood Pressure Position Sitting 02/17/24 15:28 Pulse Oximetry 97 02/19/24 11:35 Oxygen Delivery Method Room Air 02/19/24 11:35 Oxygen Flow Rate 0 02/19/24 11:35 Pain Level 8 02/19/24 00:33 Comment Back pain. 02/18/24 11:00 Intake & Output 02/18/24 02/19/24 02/19/24 23:59 11:59 23:59 Intake Total 100 / 320 100 / 100 Output Total 1225 / 1850 350 / 350 Balance -1125 / -1530 -250 / -250 Intake: IV 100 / 100 100 / 100 Output: Urine 1225 / 1850 350 / 350 Other: Urine Color Pale Yellow Yellow Urine Appearance Clear Clear Urine Odor Normal Voiding Methods Toilet Urinal Data Completed and Pending Labs on day of discharge: Labs from last 24 hours 02/19/24 02/17/24 05:50 18:35 WBC 12.97 H RBC 4.74 Hgb 12.1 L Hct 37.6 L MCV 79 L MCH 25.5 L MCHC 32.2 RDW 15.5 H Plt Count 287 MPV 9.4 Immature Gran % 2.0 Neutrophils % 72.0 Lymphocytes % 15.9 Monocytes % 9.8 Eosinophils % 0.0 Basophils % 0.3 Nucleated RBC % 0.0 Absolute Neutrophils 9.34 H Absolute Lymphocytes 2.06 Absolute Monocytes 1.27 H Absolute Eosinophils 0.00 Absolute Basophils 0.04 Sodium 137 Potassium 3.5 Chloride 100 Carbon Dioxide 27.1 Anion Gap 9.9 BUN 26 H Creatinine 1.3 Est GFR (CKD-EPI 2020) 58.73 Glucose 156 H Calcium 8.5 Magnesium 2.1 Urine Legionella Ag Negative Preliminary micro results at discharge 02/17/24 16:17 Blood Culture - Preliminary Blood NO GROWTH 24 HOURS 02/17/24 16:01 Blood Culture - Preliminary Blood NO GROWTH 24 HOURS PFSH All Active Problems (Updated 02/17/24 @ 16:44 by Maryam Trinidad APRN) Congestive heart failure (Chronic) Discharge planning issues (Acute) On deep vein thrombosis (DVT) prophylaxis (Acute) Tobacco abuse (Acute) Pneumonia (Acute) COPD exacerbation (Acute) Noncompliance with medications (Acute) Elevated blood pressure reading (Acute) Methadone use (Acute) Hypertension (Chronic) Angioedema (Acute) Nausea & vomiting (Acute) Opiate withdrawal (Acute) Abdominal pain (Acute) Medical History (Updated 02/17/24 @ 16:44 by Maryam Trinidad APRN) Narcotic abuse in remission Diabetes HTN (hypertension) Social History Smoking/Tobacco Use Status: Current every day Tobacco Type: cigarettes Years smoked: 45 Smoking risk assessment performed?: Yes Alcohol Intake: never Drug use: Current Sobriety Substance use type: does not use Housing: homeless Do you feel safe at home: Yes Do you feel safe in your relationship?: Yes Time Spent with Patient Time Spent with Patient: 45-69 minutes Time was spent: preparing to see the patient(eg.review tests), obtaining and/or reviewing separately otained hiistory, ordering medications,tests, procedures, indepentently interpreting results, counseling the patient and care coordination
--- NOTE | 2024-02-19 14:28 | CMDISCH_ITS ---
Date of service: 02/19/24 Time of Service: 14:28 LACE Index Scoring Tool Questions: Length of Stay (in days): 2 Was the patient admitted via the E.D.?: Yes Comorbidities: Diabetes w/o Complication, Congestive Heart Failure and Chronic Pulmonary Disease E.D. Visits: 2 Answers: Total Score: 12 Risk of Readmission: High Risk Care Management Discharge Plan Reason for Hospitalization: chf Discharge Plan: Jonathan will be discharged back to the detention in [facility] with new home health services for PT. He will follow up with his PCP and plan of care and transport with family. Patient/Family Education Needs: Review of discharge instructions, activity, limitations, follow up plan, discuss Ask Me Three SDOH Health Related Social Needs: Health related social needs risk of homeless, food ins ecurity, transpo insecurity, material hardship Health related social needs: housing instability, housed, with risk of homelessness(Z59.811), food insecurity(Z59.41), transportation insecurity(Z59.82) and material hardship(utilities)(Z59.87)
--- NOTE | 2024-02-19 14:28 | PT.INNT ---
PT Notes Visit Reasons: Yari checked in with Jonathan to review his HEP. He felt as though he had a good understanding of these ex as they were reviewed and he performed them this am. Stated he was leaving shortly.
--- NOTE | 2024-02-19 14:40 | PDOC.HHF2F_ITS ---
Home Health Referral Home Health Orders Clinical synopsis of why skilled professionals are needed: copd and pneumonia with ambulatory dysfunction Medical diagnosis necessitation home health referral: increase endurance and strength. Physical Therapist: Check all that apply Increase strength & endurance for safe mobility at home: Ordered To design/establish home maintenance program: Ordered Fall reduction therapy program for patient with history of frequent falls: Ordered Home safety evaluation and teaching/gait training including stair management (if applicable): Ordered Better Breathing Program: Ordered Home Bound Status Describe why leaving home would require a considerable and taxing effort: Requires frequent rest periods Encounter Date and Reason: I certify that a FTF encounter for this patient was performed on February 19, 2024 and that such encounter was related to the primary reason the patient requires home health services. The encounter was conducted in the following manner: * By me as the certifying physician, SERVER SUPPORT TECHNICIAN, PA or * By an inpatient physician, SERVER SUPPORT TECHNICIAN or PA during an inpatient stay who communicated findings to me, Certification And Authentication I certify that I composed the above information based on my clinical judgment relating to this patient's medical condition and, if applicable, clinical findings communicated to me by the NPP or inpatient physician who performed the FTF encounter. Name of Provider that will be monitoring home health services: Pippa Madden
[2024-02-19] MEDS: Nicotine 21 MG/24 HR PATCH TD (14:51)
[2024-02-19 23:24] LABS: Streptococcus Pneumoniae Ag, U Negative (Negative)
[2024-02-20 10:19] LABS: Transferrin 190 mg/dL (201-352)
[2024-02-21 16:24] LABS: Mycoplasma Pneumoniae PCR Negative (Negative)
== END 2024-02-19 15:23 | disposition home health service (06) | DRG 190 ==
LOC: ER 16:41 → MS 16:50
PROVIDERS: Nurse Practitioner Acute Care; Admitting Provider Family Medicine; Emergency Provider Emergency Medicine; PCP Student in an Organized Health Care Education/Training Program; Visit Provider Family Medicine
DX: J44.0 Chronic obstructive pulmonary disease with (acute) lower respiratory infection (principal); J18.9 Pneumonia, unspecified organism; F11.20 Opioid dependence, uncomplicated; Z59.01 Sheltered homelessness; J44.1 Chronic obstructive pulmonary disease with (acute) exacerbation; I11.0 Hypertensive heart disease with heart failure; I50.9 Heart failure, unspecified; Z79.899 Other long term (current) drug therapy; F17.210 Nicotine dependence, cigarettes, uncomplicated; E78.5 Hyperlipidemia, unspecified; E11.9 Type 2 diabetes mellitus without complications; B95.62 Methicillin resistant Staphylococcus aureus infection as the cause of diseases classified elsewhere; Z22.322 Carrier or suspected carrier of Methicillin resistant Staphylococcus aureus
CPT/HCPCS: 00123; 36415; 71275; 80048; 80053; 84145; 85027; 87040; 87449; 87641; 93306; 94640; 96365; 96375; 97110; 97162; 97530; 99285; J1650; 71045; 83540; 83550; 83735; 83880; 84466; 85025; 87581; 87899; 94664; 94667; 94760; 99223; 99233; 99239; J1940; J1941; J2930; J3372; J3490; J7512; J7620